=== PATIENT | female | born 2000 | race Two or more races ===

== ENCOUNTER 2020-03-11 13:55 | Outpatient (REF) | payer MEDICAID, SELFPAY ==
[2020-03-12 10:01] LABS: BV Int Neg Control Negative (Negative); BV Int Pos Control Positive (Positive)
[2020-03-12 15:42] LABS: C. trachomatis RNA TMA DETECTED (NOT DETECTED); N. gonorrhoeae RNA TMA DETECTED (NOT DETECTED)
[2020-03-17 06:02] LABS: HPV mRNA E6/E7 rflx Not Detected (Not Detected)
== END 2020-03-11 13:56 | disposition home or self-care (01) ==
LOC: HO.LAB 13:55
PROVIDERS: PCP Physician Assistant; Visit Provider Advanced Practice Midwife
DX: Z01.419 Encounter for gynecological examination (general) (routine) without abnormal findings (principal); B96.89 Other specified bacterial agents as the cause of diseases classified elsewhere; N76.0 Acute vaginitis; Z20.2 Contact with and (suspected) exposure to infections with a predominantly sexual mode of transmission
CPT/HCPCS: 36415; 87480; 87491; 87510; 87591; 87624; 87660; 88142

== ENCOUNTER 2020-03-13 08:28 | Outpatient (REF) | payer MEDICAID, SELFPAY ==
[2020-03-13 09:03] LABS: Hematocrit 37.1 % (37-47); Hemoglobin 12.1 g/dl (12.0-16.0); Mean Corpuscular HGB Conc 32.6 g/dl (31.0-35.0); Mean Corpuscular Hemoglobin 27.9 pg (27.0-33.0); Mean Corpuscular Volume 85.5 fL (80-98); Platelet Count 292 X10*3/uL (160-400); Red Blood Count 4.34 X10*6/uL (4.20-5.50); Red Cell Distribution Width 12.4 % (11.0-16.0); White Blood Count 7.4 X10*3/uL (4.8-10.8)
[2020-03-13 09:35] LABS: Alanine Aminotransferase 12 U/L (0-31); Albumin Level 4.3 g/dL (3.5-5.0); Alkaline Phosphatase 48 U/L (39-117); Anion Gap 13 (12-20); Aspartate Amino Transferase 14 U/L (5-31); Bilirubin Total 0.9 mg/dL (0.0-1.0); Blood Urea Nitrogen 13 mg/dL (9-16); Calcium 8.8 mg/dL (8.4-10.2); Carbon Dioxide 23 mmol/L (22-29); Chloride 107 mmol/L (96-108); Estimated Glomerular Filt Rate > 60; Glucose Fasting 95 mg/dL (60-99); Sodium 139 mmol/L (135-145); Total Protein 7.1 g/dL (6.5-8.0)
[2020-03-13 10:11] LABS: Estimated Average Glucose 105 mg/dL; Hemoglobin A1c % 5.3 %
[2020-03-15 08:04] LABS: HIV AB/AG Nonreactive (Nonreactive); HIV Num 1 0.07 S/CO (0.00-0.99); ~HepC Num1 0.12 S/CO (0.00-0.79); ~Hepatitis C Antibody Nonreactive (Nonreactive)
[2020-03-15 08:22] LABS: HBsAGNum1 0.13 S/CO (0.00-0.99); Hepatitis B Surface Antigen Negative (Negative)
[2020-03-15 14:29] LABS: Syphilis Screen Nonreactive (Nonreactive)
[2020-03-15 15:42] LABS: C. trachomatis RNA TMA DETECTED (NOT DETECTED); N. gonorrhoeae RNA TMA DETECTED (NOT DETECTED)
== END 2020-03-13 08:29 | disposition home or self-care (01) ==
LOC: HO.LAB 08:28
PROVIDERS: PCP Physician Assistant; Visit Provider Advanced Practice Midwife
DX: I10 Essential (primary) hypertension (principal); E66.09 Other obesity due to excess calories; Z68.32 Body mass index [BMI] 32.0-32.9, adult; Z13.1 Encounter for screening for diabetes mellitus; Z13.29 Encounter for screening for other suspected endocrine disorder; Z20.2 Contact with and (suspected) exposure to infections with a predominantly sexual mode of transmission
CPT/HCPCS: 36415; 80053; 83036; 84443; 85027; 86780; 86803; 87340; 87389; 87491; 87591

== ENCOUNTER → 2020-03-19 09:05 | Outpatient (BNVA) | payer MEDICAID, SELFPAY | PROVIDERS: PCP Physician Assistant; Visit Provider Advanced Practice Midwife | DX: A64 Unspecified sexually transmitted disease (principal); Z79.2 Long term (current) use of antibiotics | CPT/HCPCS: 96372; 99211; 99212; J0696 ==

== ENCOUNTER → 2020-05-07 14:59 | Outpatient (BNVA) | payer MEDICAID, SELFPAY | PROVIDERS: Visit Provider Advanced Practice Midwife | DX: Z30.09 Encounter for other general counseling and advice on contraception (principal); N76.0 Acute vaginitis; A74.9 Chlamydial infection, unspecified; A54.9 Gonococcal infection, unspecified; B96.89 Other specified bacterial agents as the cause of diseases classified elsewhere | CPT/HCPCS: 99212 ==

== ENCOUNTER 2020-05-17 18:52 | Emergency (ER) | payer OTHER, SELFPAY ==
[2020-05-17 19:56] VITALS: BP 141/80; PULSE 85; RESP 16; TEMP 37.2; O2SAT 100; BMI 33.4
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
== END 2020-05-17 22:19 | disposition home or self-care (01) ==
PROVIDERS: Emergency Provider Internal Medicine; PCP Physician Assistant
DX: Z04.1 Encounter for examination and observation following transport accident (principal); M79.10 Myalgia, unspecified site; G89.11 Acute pain due to trauma; M79.604 Pain in right leg
CPT/HCPCS: 99283; 99284

== ENCOUNTER 2020-05-28 15:01 | Outpatient (REF) | payer MEDICAID, SELFPAY ==
[2020-05-29 03:29] LABS: CT PCR NOT DETECTED (Not Detect.); NG PCR DETECTED (Not Detect.)
[2020-05-29 12:10] LABS: BV Int Neg Control Negative (Negative); BV Int Pos Control Positive (Positive)
== END 2020-05-28 15:02 | disposition home or self-care (01) ==
LOC: HO.LAB 15:01
PROVIDERS: Visit Provider Advanced Practice Midwife
DX: Z30.41 Encounter for surveillance of contraceptive pills (principal); Z20.2 Contact with and (suspected) exposure to infections with a predominantly sexual mode of transmission; B96.89 Other specified bacterial agents as the cause of diseases classified elsewhere; N76.0 Acute vaginitis; A54.9 Gonococcal infection, unspecified; A74.9 Chlamydial infection, unspecified
CPT/HCPCS: 87480; 87491; 87510; 87591; 87660; 99212

== ENCOUNTER → 2020-06-11 14:55 | Outpatient (BNVA) | payer MEDICAID, SELFPAY | PROVIDERS: PCP Physician Assistant; Visit Provider Advanced Practice Midwife | DX: A54.9 Gonococcal infection, unspecified (principal); A64 Unspecified sexually transmitted disease | CPT/HCPCS: 96372; 99211; J0696 ==

== ENCOUNTER 2020-07-09 14:15 | Outpatient (REF) | payer MEDICAID, SELFPAY ==
[2020-07-10 02:29] LABS: CT PCR NOT DETECTED (Not Detect.); NG PCR NOT DETECTED (Not Detect.)
[2020-07-10 11:52] LABS: BV Int Neg Control Negative (Negative); BV Int Pos Control Positive (Positive)
== END 2020-07-09 14:16 | disposition home or self-care (01) ==
LOC: HO.LAB 14:15
PROVIDERS: PCP Physician Assistant; Visit Provider Advanced Practice Midwife
DX: A54.9 Gonococcal infection, unspecified (principal); A74.9 Chlamydial infection, unspecified; B37.3 Candidiasis of vulva and vagina
CPT/HCPCS: 87480; 87491; 87510; 87591; 87660; 99212

== ENCOUNTER 2020-09-22 14:00 | Outpatient (RCR) | payer OTHER, MEDICAID, SELFPAY ==
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
== END 2020-09-22 16:49 | disposition home or self-care (01) ==
LOC: HO.PT 14:00
PROVIDERS: PCP Physician Assistant; Visit Provider Internal Medicine
DX: S16.1XXA Strain of muscle, fascia and tendon at neck level, initial encounter (principal)
CPT/HCPCS: 97110; 97112; 97140; 97150; 97162; 97164

== ENCOUNTER 2020-10-27 10:39 | Outpatient (REF) | payer MEDICAID, SELFPAY ==
[2020-10-27 15:40] LABS: CT PCR DETECTED (Not Detect.); NG PCR NOT DETECTED (Not Detect.)
[2020-10-28 10:10] LABS: BV Int Neg Control Negative (Negative); BV Int Pos Control Positive (Positive)
== END 2020-10-27 10:40 | disposition home or self-care (01) ==
LOC: HO.LAB 10:39
PROVIDERS: PCP Physician Assistant; Visit Provider Advanced Practice Midwife
DX: R30.0 Dysuria (principal); N73.9 Female pelvic inflammatory disease, unspecified; N89.8 Other specified noninflammatory disorders of vagina; N90.89 Other specified noninflammatory disorders of vulva and perineum; Z20.2 Contact with and (suspected) exposure to infections with a predominantly sexual mode of transmission
CPT/HCPCS: 81003; 87086; 87255; 87480; 87491; 87510; 87591; 87660; 96372; 99212; J0696

== ENCOUNTER 2020-11-17 08:36 | Outpatient (REF) | payer MEDICAID, SELFPAY ==
[2020-11-18 10:36] LABS: BV Int Neg Control Negative (Negative); BV Int Pos Control Positive (Positive)
== END 2020-11-17 08:37 | disposition home or self-care (01) ==
LOC: HO.LAB 08:36
PROVIDERS: PCP Physician Assistant; Visit Provider Advanced Practice Midwife
DX: N89.8 Other specified noninflammatory disorders of vagina (principal); Z20.2 Contact with and (suspected) exposure to infections with a predominantly sexual mode of transmission
CPT/HCPCS: 87480; 87510; 87660; 99212

== ENCOUNTER 2021-01-05 09:00 | Outpatient (RCR) | payer OTHER, MEDICAID, SELFPAY ==
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
== END 2021-01-10 18:08 | disposition home or self-care (01) ==
LOC: HO.PT 09:00
PROVIDERS: PCP Physician Assistant; Visit Provider Physician Assistant
DX: S16.1XXD Strain of muscle, fascia and tendon at neck level, subsequent encounter (principal)
CPT/HCPCS: 97110; 97112; 97140; 97161; 97530

== ENCOUNTER → 2021-01-25 14:11 | Outpatient (BNVA) | payer MEDICAID, SELFPAY | PROVIDERS: Visit Provider Advanced Practice Midwife ==

== ENCOUNTER 2021-02-15 18:08 | Emergency (ER) | payer OTHER, MEDICAID, SELFPAY ==
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
[2021-02-15 21:04] VITALS: BP 124/74; PULSE 86; RESP 16; TEMP 36.7; O2SAT 100; BMI 34.0
[2021-02-15 21:06] VITALS: BP 124/74; PULSE 86; RESP 16; TEMP 36.7; O2SAT 100; BMI 34.0
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
== END 2021-02-15 22:38 | disposition home or self-care (01) ==
PROVIDERS: Emergency Provider Emergency Medicine Emergency Medical Services; PCP Physician Assistant
DX: S80.01XA Contusion of right knee, initial encounter (principal); V43.52XA Car driver injured in collision with other type car in traffic accident, initial encounter; Y93.89 Activity, other specified; Y92.414 Local residential or business street as the place of occurrence of the external cause; Y99.9 Unspecified external cause status
CPT/HCPCS: 73562; 99283

== ENCOUNTER 2021-02-17 15:52 | Outpatient (REF) | payer OTHER, MEDICAID, SELFPAY ==
[2021-02-18 08:51] LABS: BV Int Neg Control Negative (Negative); BV Int Pos Control Positive (Positive)
[2021-02-18 11:07] LABS: CT PCR DETECTED (Not Detect.); NG PCR NOT DETECTED (Not Detect.)
== END 2021-02-17 15:53 | disposition home or self-care (01) ==
LOC: HO.LAB 15:52
PROVIDERS: Visit Provider Advanced Practice Midwife
DX: A59.9 Trichomoniasis, unspecified (principal); N89.8 Other specified noninflammatory disorders of vagina; Z20.2 Contact with and (suspected) exposure to infections with a predominantly sexual mode of transmission
CPT/HCPCS: 87480; 87491; 87510; 87591; 87660; 99212

== ENCOUNTER 2021-03-31 14:15 | Outpatient (REF) | payer MEDICAID, SELFPAY ==
[2021-04-01 12:25] LABS: BV Int Neg Control Negative (Negative); BV Int Pos Control Positive (Positive)
[2021-04-01 13:06] LABS: CT PCR DETECTED (Not Detect.); NG PCR NOT DETECTED (Not Detect.)
== END 2021-03-31 14:16 | disposition home or self-care (01) ==
LOC: HO.LAB 14:15
PROVIDERS: Visit Provider Advanced Practice Midwife
DX: Z12.4 Encounter for screening for malignant neoplasm of cervix (principal); Z20.2 Contact with and (suspected) exposure to infections with a predominantly sexual mode of transmission; A74.9 Chlamydial infection, unspecified
CPT/HCPCS: 87480; 87491; 87510; 87591; 87660

== ENCOUNTER 2021-04-02 21:43 | Emergency (ER) | payer MEDICAID, SELFPAY ==
[2021-04-02 21:48] VITALS: BP 125/79; PULSE 91; RESP 18; TEMP 36.7; O2SAT 97; BMI 33.0
[2021-04-02 22:15] LABS: Appearance Urine CLEAR; Color Urine YELLOW; Glucose Urine UA NEG (NEG); Leukocyte Esterase Urine TRACE (NEG); Nitrite Urine NEG (NEG); PH 6.5 (5.0-8.0); Specific Gravity - Urine >= 1.030 (1.005-1.025); UACC Culture Trigger YES; Urine Blood 3+ (NEG); Urine Ketones 40 MG/DL (NEG); Urine Protein 1+ MG/DL (NEG-TRACE)
[2021-04-02 22:31] LABS: UPreg QC Valid YES; Urine Pregnancy NEGATIVE (NEGATIVE)
[2021-04-02 22:48] LABS: UACC CULT YES
[2021-04-02 22:49] LABS: Bacteria Urine 1+ /LPF; Squamous Epithelial Cell Urine TRACE /LPF
[2021-04-02 22:52] LABS: Hyaline Casts Urine 0-2 /LPF
[2021-04-02 22:54] LABS: Mucus Urine TRACE /LPF
[2021-04-02] MEDS: ondansetron HCL 4 MG/2 ML VIAL IVPUSH (23:37)
[2021-04-02] MEDS: diphenhydrAMINE HCL 50 MG/ML VIAL 25 MG IVPUSH (23:37)
[2021-04-02] MEDS: Metoclopramide HCl 10 MG/2 ML VIAL IVPUSH (23:37)
[2021-04-02] MEDS: Ketorolac Tromethamine 30 MG/ML VIAL 15 MG IVPUSH (23:37)
[2021-04-02] MEDS: 0.9 % Sodium Chloride 1,000 ML 999 ML IV (23:40)
--- NOTE | 2021-04-02 23:53 | ED.HA ---
HPI - Headache General Chief Complaint: Headache Stated Complaint: rt side head pain Time Seen by Provider: 04/02/21 22:46 Source: patient Mode of arrival: ambulatory History of Present Illness HPI Narrative: [age] year female who presents with right-sided headache and associated photophobia as well as nausea and has history migraines. Otherwise, she denies any speech/visual disturbance or extremity numbness/tingling/weakness. Patient stated that she attempted to take Motrin or Tylenol but that it did not work and she vomited the pills. She states that her headaches seem to occur around her menstrual cycle. Related Data Home Medications Medication Instructions Recorded Confirmed desogestrel-e.estradiol 0.15 1 tab PO DAILY 04/02/21 04/02/21 mg-0.02 mg(21)/e.estrad 0.01 mg(5) tablet (Viorele (28)) Previous Rx's Medication Instructions Recorded ondansetron 4 mg disintegrating 4 mg PO Q6H PRN #10 tab 04/03/21 tablet Allergies Allergy/AdvReac Type Severity Reaction Status Date / Time No Known Allergies Allergy Verified 04/02/21 21:48 Review of Systems Review of Systems: Pertinent positives and negatives as stated in HPI 10 point review of systems is otherwise negative PMFSH Past Medical History Source: nursing notes reviewed Medical History Cervical cancer screening Surgical History Hx of tonsillectomy Family History Family History Father No problems noted. Mother Benign tumor Arthritis Social History Social History Housing: House Alcohol intake: current Alcohol intake frequency: holidays/special occasions only Patient Tobacco Use Status: Never used Tobacco Tobacco use type: Cigarette e-Cigarette/Vaping Use: Never Used Second Hand Smoke Exposure: No Use of substances other than those prescribed or required for medical reasons: No Advance Directives: No Advance Directives Information Provided: No Patient : No Current occupational status: employed Current occupation: [employer] Sexual orientation: Straight/Heterosexual Gender identity: Female Physical Exam Vital Signs: Vital Signs: Last Vital Signs Temp 98.1 F 04/02/21 21:48 Pulse 85 04/03/21 00:05 Resp 17 04/03/21 00:05 BP 110/60 04/03/21 00:05 Pulse Ox 99 04/03/21 00:05 BMI result Body Mass Index 33.0 VITAL SIGNS: Reviewed. GENERAL: Well developed, well nourished, in no acute distress. HEAD: Normocephalic/atraumatic EYES: PERRLA, EOMI intact without pain, no nystagmus EARS: Ext canals without abnormality OROPHARYNX: no oral lesions noted, posterior pharynx clear LUNGS: Normal breath sounds. No adventitious sounds or accessory muscle use. SpO2<97> CARDIOVASCULAR: Regular rate and rhythm without noted murmurs ABDOMEN: Soft, non-tender, non-distended with bowel sounds. SKIN: Inspection of the skin reveals no rashes NEUROLOGIC: Alert and oriented x 4. Strength and sensation to light touch were grossly intact x 4, otherwise nonfocal Course Course Course Narrative: 20-year-old female with history and clinical presentation consistent with what appears to be migraines with menstrual cycle being the trigger. Will attempt abortive therapy with fluids and migraine cocktail as well as treating patient's mild gastritis from her nausea and vomiting. She will then be discharged home in stable condition with instructions to follow-up with primary care provider in discuss further management outpatient. On re-evaluation patient is feeling better and is stable for discharge to home. MDM - Headache Lab Data Labs: Lab Results 04/02/21 04/02/21 Range/Units 21:57 21:57 Urine Color YELLOW Urine Appearance CLEAR Urine pH 6.5 (5.0-8.0) Ur Specific [place] >= 1.030 H (1.005-1.025) Urine Protein 1+ H (NEG-TRACE) MG/DL Urine Glucose (UA) NEG (NEG) MG/DL Urine Ketones 40 (NEG) MG/DL Urine Blood 3+ H (NEG) Urine Nitrite NEG (NEG) Ur Leukocyte Esterase TRACE H (NEG) Urine RBC 5-9 H (0) /HPF Urine WBC 5-9 H (0-4) /HPF Ur Squamous Epith Cells TRACE /LPF Urine Bacteria 1+ /LPF Hyaline Casts 0-2 /LPF Urine Mucus TRACE /LPF Urine Test NEGATIVE (NEGATIVE) Discharge Plan Discharge Clinical Impression: Headache Patient Disposition: Home, Self-Care Instructions: General Headache (ED) Additional Instructions: 1. Please increase fluid hydration, especially with water. 2. Tylenol 1000 mg, orally, every 6 hours as needed for headache control. Do not exceed 4000 mg within 24 hours. 3. Ibuprofen 400 mg, orally with milk or food, every 6 hours as needed for headache control. You may take this with Tylenol for increased symptom relief. 4. Recommend keeping a headache journal so that when you discuss with your primary care provider or with any specialist on referral they can review this with you and come up with a plan. 5. Please follow-up with primary care provider on Sunday. Return to the ER for worsening symptoms. Prescriptions: New ondansetron 4 mg tablet,disintegrating 4 mg PO Q6H PRN (Reason: nausea and vomiting) Qty: 10 0RF No Action desog-e.estradiol/e.estradiol [Viorele (28)] 0.15-0.02 mgx21 /0.01 mg x 5 tablet 1 tab PO DAILY 0RF Referrals: Jesus Mendenhall PA-C [Primary Care Provider] - 2 days
[2021-04-03 00:05] VITALS: BP 110/60; PULSE 85; RESP 17; O2SAT 99
[2021-04-03] MEDS: Magnesium Hydrox/Alum Hydrox 30 ML ORAL.SUSP PO (01:01)
[2021-04-03] MEDS: Lidocaine HCl Viscous 2 % 15 ML SOLUTION 10 ML MUCOUS MEM (01:01)
[2021-04-03] MEDS: Butalb/Acetamin/Caff 50/325/40 TABLET 1 TAB PO (01:01)
== END 2021-04-03 01:49 | disposition home or self-care (01) ==
PROVIDERS: Emergency Provider Student in an Organized Health Care Education/Training Program; PCP Physician Assistant
DX: R51.9 Headache, unspecified (principal)
CPT/HCPCS: 81001; 81025; 87086; 96361; 96374; 96375; 99284; 99285; J1200; J1885; J2405; J2765

== ENCOUNTER 2021-06-01 10:30 | Outpatient (REF) | payer MEDICAID, SELFPAY ==
[2021-06-01 11:46] LABS: Hematocrit 37.2 % (37.0-47.0); Hemoglobin 12.2 g/dl (12.0-16.0); Mean Corpuscular HGB Conc 32.8 g/dl (31.0-35.0); Mean Corpuscular Hemoglobin 27.1 pg (27.0-33.0); Mean Corpuscular Volume 82.7 fL (80.0-98.0); Mean Platelet Volume 10.1 fL (9.4-12.3); Platelet Count 307 X10*3/uL (160-400); Red Cell Distribution Width 12.6 % (11.0-16.0); White Blood Count 7.6 X10*3/uL (4.8-10.8)
[2021-06-01 11:52] LABS: Estimated Average Glucose 105 mg/dL; Hemoglobin A1c % 5.3 %
[2021-06-01 12:23] LABS: Alanine Aminotransferase 21 U/L (0-31); Albumin Level 3.6 g/dL (3.5-5.0); Alkaline Phosphatase 45 U/L (39-117); Anion Gap 10 (12-20); Aspartate Amino Transferase 19 U/L (5-31); Bilirubin Total 0.4 mg/dL (0.0-1.0); Blood Urea Nitrogen 10 mg/dL (9-16); Calcium 8.9 mg/dL (8.4-10.2); Carbon Dioxide 24 mmol/L (22-29); Chloride 106 mmol/L (96-108); Estimated Glomerular Filt Rate > 60; Glucose Fasting 89 mg/dL (60-99); Potassium 4.2 mmol/L (3.3-5.1); Sodium 136 mmol/L (135-145); Total Protein 6.7 g/dL (6.5-8.0)
[2021-06-01 12:28] LABS: Syphilis Screen Nonreactive (Nonreactive)
[2021-06-01 12:29] LABS: HBc Num1 0.17 S/CO (0.00-0.79); HIV AB/AG Nonreactive (Nonreactive); HIV Num 1 0.07 S/CO (0.00-0.99); Hepatitis B Core Antibody Nonreactive (Nonreactive)
[2021-06-01 12:31] LABS: TSH reflex Free T4 1.18 uIU/mL (0.32-4.0)
[2021-06-01 12:33] LABS: ~HepC Num1 0.17 S/CO (0.00-0.79); ~Hepatitis C Antibody Nonreactive (Nonreactive)
== END 2021-06-01 10:31 | disposition home or self-care (01) ==
LOC: HO.LAB 10:30
PROVIDERS: Absent Provider Physician Assistant; PCP Physician Assistant; Visit Provider Advanced Practice Midwife
DX: Z01.84 Encounter for antibody response examination (principal); Z13.29 Encounter for screening for other suspected endocrine disorder; Z11.4 Encounter for screening for human immunodeficiency virus [HIV]; Z20.2 Contact with and (suspected) exposure to infections with a predominantly sexual mode of transmission
CPT/HCPCS: 36415; 80053; 83036; 84443; 85027; 86704; 86780; 86803; 87389

== ENCOUNTER 2021-06-24 18:51 | Outpatient (REF) | payer OTHER, MEDICAID, SELFPAY ==
--- NOTE | ~2021-06-24 | MR_ITS ---
EXAMINATION: MR KNEE WITHOUT CONTRAST, LEFT CLINICAL INFORMATION: Left knee pain. COMPARISON: 02/15/2021 TECHNIQUE: MRI of the knee without contrast was performed using routine sequences on a high-field scanner. FINDINGS: MENISCI: Medial Meniscus: Intact. Lateral Meniscus: Intact. LIGAMENTS: Cruciate: Intact. Collateral: Intact. EXTENSOR MECHANISM: Intact. Normal appearance of the quadriceps and patellar tendons. Trace edema signal deep to the iliotibial band at the level of the lateral femoral epicondyle. ARTICULAR CARTILAGE/BONE: Patellofemoral Compartment: Normal. Articular cartilage is well-preserved. Normal trochlear morphology. TT-TG distance measures 1.1 cm. Medial Compartment: Normal. Lateral Compartment: Normal. JOINT FLUID AND BURSAE: Trace fluid in the joint is within normal limits. No Bess's cyst. No loose bodies. MR/MR knee LT wo con IMPRESSION: No acute abnormality of the left knee on this MRI. Trace edema signal deep to the IT band at the level of the lateral femoral epicondyle can be seen in the setting of iliotibial band friction syndrome, though is relatively mild in this instance and more likely to be subclinical.
== END 2021-06-24 18:52 | disposition home or self-care (01) ==
LOC: HO.MRI 18:51
PROVIDERS: Visit Provider Nurse Practitioner Family
DX: M25.562 Pain in left knee (principal)
CPT/HCPCS: 73721

== ENCOUNTER 2021-07-10 17:47 | Emergency (ER) | payer OTHER, MEDICAID, SELFPAY ==
--- NOTE | ~2021-07-10 | XR_ITS ---
EXAMINATION: XR CHEST CLINICAL INFORMATION: Cough. COMPARISON: None. TECHNIQUE: 2 views of the chest were obtained. FINDINGS: Normal appearance of the cardiomediastinal silhouette. No focal airspace opacities, pleural effusions, or pneumothorax. No acute osseous abnormalities. The upper abdomen is within normal limits. XR/XR chest 2V IMPRESSION: No acute cardiopulmonary findings.
[2021-07-10 18:11] VITALS: BP 125/77; PULSE 158; RESP 18; TEMP 37.8; O2SAT 98; BMI 34.0
--- NOTE | 2021-07-10 18:14 | ECG_ITS ---
Test Reason : TACHY Blood Pressure : / mmHG Vent. Rate : 142 BPM Atrial Rate : 142 BPM P-R Int : 112 ms QRS Dur : 074 ms QT Int : 358 ms P-R-T Axes : 000 049 027 degrees QTc Int : 550 ms Sinus tachycardia Otherwise normal ECG No previous ECGs available Referred By: Generic ED Physician Electronically Signed By:Paddy Adams
[2021-07-10] MEDS: Acetaminophen 325 MG TABLET 650 MG PO (18:18)
[2021-07-10 18:35] LABS: MANUAL DIFF FLAG NO
[2021-07-10 18:37] LABS: Basophils Percent Auto 0.3 % (0-2); Eosinophils Percent Auto 0.3 % (0-4); Hematocrit 37.3 % (37.0-47.0); Hemoglobin 12.5 g/dl (12.0-16.0); Imm Gran Abs Auto 0.02 X10*3/uL (0.00-0.03); Imm Gran Pct Auto 0.2 % (0.0-0.4); Lymphocytes Absolute Auto 0.6 X10*3/uL (1.2-4.9); Lymphocytes Percent Auto 6.7 % (20-40); Mean Corpuscular HGB Conc 33.5 g/dl (31.0-35.0); Mean Corpuscular Hemoglobin 27.7 pg (27.0-33.0); Mean Corpuscular Volume 82.7 fL (80.0-98.0); Mean Platelet Volume 9.7 fL (9.4-12.3); Monocytes Percent Auto 10.1 % (2-11); Neutrophils Absolute Auto 7.7 x10*3/uL (2.0-8.3); Neutrophils Percent Auto 82.4 % (45-73); Platelet Count 252 X10*3/uL (160-400); Red Blood Count 4.51 X10*6/uL (4.20-5.50); Red Cell Distribution Width 12.8 % (11.0-16.0); White Blood Count 9.4 X10*3/uL (4.8-10.8)
[2021-07-10 18:52] LABS: Alanine Aminotransferase 27 U/L (0-31); Albumin Level 3.6 g/dL (3.5-5.0); Alkaline Phosphatase 47 U/L (39-117); Anion Gap 12 (12-20); Aspartate Amino Transferase 22 U/L (5-31); Bilirubin Total 0.4 mg/dL (0.0-1.0); Blood Urea Nitrogen 5 mg/dL (9-16); Calcium 8.7 mg/dL (8.4-10.2); Carbon Dioxide 21 mmol/L (22-29); Chloride 106 mmol/L (96-108); Creatinine Clr Calc Pharmacy 98.5; Estimated Glomerular Filt Rate > 60; Glucose Random 107 mg/dL (60-115); Sodium 135 mmol/L (135-145); Total Protein 6.7 g/dL (6.5-8.0)
[2021-07-10 18:58] LABS: Troponin-I High Sensitivity < 3.5 ng/L (<3.5-17.0)
[2021-07-10 19:01] VITALS: BP 124/79; PULSE 124; RESP 18; TEMP 37.2; O2SAT 97
[2021-07-10 19:13] LABS: Influenza A PCR POSITIVE (Negative); Influenza B PCR NEGATIVE (Negative); Resp Syncy Virus RNA Qual PCR NEGATIVE (Negative); SARS COV2 PCR INHOUSE NEGATIVE (Negative)
--- NOTE | 2021-07-10 20:01 | ED.GENADULT ---
HPI - General Adult General Chief complaint: General Medical Stated complaint: SOB Sore Throat Chest Discomfort Time Seen by Provider: 07/10/21 20:01 Source: patient Mode of arrival: ambulatory Limitations: no limitations History of Present Illness HPI narrative: 21 yo female presents to the ER with worsening sore throat and cough that started yesterday morning. She reports today she developed SOB and chest tightness. She has had chills and body aches. She took a home COVID test and was negative today. She is vaccinated for COVID x2. 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 She thinks he had the flu. She denies any difficulty breathing or chest pain. She reports discomfort in her chest when she coughs is bringing up some phlegm. She had a low-grade fever earlier today. She is unsure if she had the flu vaccination in the fall. MD complaint: Flu like symptoms Onset (ago): day(s) (1) Location: head, mouth, chest and back Radiation: non-radiation Severity: moderate Quality: aching Pain Consistency: constant Relieving factors: none Exacerbating factors: none Associated symptoms: cough, fever/chills, headaches, loss of appetite, malaise, shortness of breath and weakness Treatments prior to arrival: none Related Data Home Medications Medication Instructions Recorded Confirmed desogestrel-e.estradiol 0.15 1 tab PO DAILY 04/02/21 06/14/21 mg-0.02 mg(21)/e.estrad 0.01 mg(5) tablet (Viorele (28)) Previous Rx's Medication Instructions Recorded ondansetron 4 mg disintegrating 4 mg PO Q6H PRN #10 tab 04/03/21 tablet nabumetone 500 mg tablet 500 mg PO BID PRN #20 tab 04/13/21 amitriptyline 25 mg tablet 25 mg PO BEDTIME 90 Days #90 tab 05/25/21 oseltamivir 75 mg capsule (Tamiflu) 75 mg PO BID 5 Days #10 cap 07/10/21 Allergies Allergy/AdvReac Type Severity Reaction Status Date / Time No Known Allergies Allergy Verified 07/10/21 18:10 Review of Systems Review of Systems: Constitutional: No Fever, + Chills ENT/Mouth: + sore throat, No Rhinorrhea, No Swallowing Difficulty Cardiovascular: No Chest Pain, + SOB, No Orthopnea, No Edema Respiratory: + Cough, + Sputum, No Wheezing, No dyspnea Gastrointestinal: No Nausea, No Vomiting, No Diarrhea, No abdominal Pain Genitourinary: No Dysuria, No Urinary Frequency, No Hematuria Musculoskeletal: No joint pain, + Myalgias Skin: No Skin Lesions, No rash Neuro: + Weakness, No Numbness, No Dizziness, + Headache Psych: No Anxiety/Panic, No Depression Heme/Lymph: No Bruising, No Lymphadenopathy Endocrine: No Polyuria, No Polydipsia [facility] Past Medical History Medical History Cervical cancer screening Surgical History Hx of tonsillectomy Family History Family History Father No problems noted. Mother Benign tumor Arthritis Family/Other Substance use disorder Social History Social History Housing: House Alcohol intake: current Alcohol intake frequency: holidays/special occasions only Patient Tobacco Use Status: Never used Tobacco Tobacco use type: Cigarette e-Cigarette/Vaping Use: Never Used Second Hand Smoke Exposure: No Advance Directives: No Advance Directives Information Provided: No service: No Current occupational status: employed Current occupation: [employer] white - [employer] Sexual orientation: Straight/Heterosexual Gender identity: Female Cognitive needs: No Hearing needs: No Vision needs: Yes (Need eye referral has not seen an eye doctor for about 3 years) Physical Exam ED Vital Signs: Vital Signs - 24 hr 07/10/21 18:11 07/10/21 19:01 Temperature 100.1 F 99 F Pulse Rate 158 H 124 H Respiratory Rate 18 18 Blood Pressure 125/77 124/79 Pulse Oximetry 98 97 BMI result Body Mass Index 34.0 Appearance: Alert. Oriented X3. No acute distress. Eyes: Pupils equal, round and reactive to light. ENT: Pharynx with mild generalized erythema, moist mucous membranes, Uvula midline. Normal TMs bilaterally Neck: Normal inspection. Neck supple. CVS: Tachycardic, regular rhythm, heart rate 110. Pulses normal. Respiratory: No respiratory distress. Breath sounds normal. Abdomen: Soft and nontender. +BS x4 Skin: Skin warm and dry. Normal skin color. Normal skin turgor. No rashes. Extremities: No lower extremity edema. No calf tenderness. Neuro: Oriented X 3. Grossly normal, nonfocal Course Course Course Narrative: 21 yo female presents to the ER for evaluation of sore throat and cough that started yesterday. She also has some chest tightness, headache shortness of breath and body aches. 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 She is tachycardic on arrival, otherwise nontoxic with an unremarkable physical exam. Lab workup, chest x-ray, viral swab sick, EKG pending. Reevaluation(s) Reevaluation #1: Lab workup is unremarkable. Chest x-ray clear. She is found to be influenza A positive. SpO2 97-98%. She qualifies for Tamiflu treatment. Will give 1st dose now. Stable for discharge home with Tamiflu and supportive care. Return precautions were discussed. Medical Decision Making Lab Data Result diagrams: 07/10/21 18:23 07/10/21 18:23 Labs: Lab Results 07/10/21 07/10/21 07/10/21 Range/Units 18:23 18:23 18:23 WBC 9.4 (4.8-10.8) X10*3/uL RBC 4.51 (4.20-5.50) X10*6/uL Hgb 12.5 (12.0-16.0) g/dl Hct 37.3 (37.0-47.0) % MCV 82.7 (80.0-98.0) fL MCH 27.7 (27.0-33.0) pg MCHC 33.5 (31.0-35.0) g/dl RDW 12.8 (11.0-16.0) % Plt Count 252 (160-400) X10*3/uL MPV 9.7 (9.4-12.3) fL Immature Gran % (Auto) 0.2 (0.0-0.4) % Neut % (Auto) 82.4 H (45-73) % Lymph % (Auto) 6.7 L (20-40) % [place] % (Auto) 10.1 (2-11) % Eos % (Auto) 0.3 (0-4) % Baso % (Auto) 0.3 (0-2) % Lymph # (Auto) 0.6 L (1.2-4.9) X10*3/uL [place] # (Auto) 1.0 (0.1-1.2) X10*3/uL Eos # (Auto) 0.0 (0.0-0.4) X10*3/uL Baso # (Auto) 0.0 (0.0-0.2) X10*3/uL Abs Immat Gran (auto) 0.02 (0.00-0.03) X10*3/uL Absolute Neuts (auto) 7.7 (2.0-8.3) x10*3/uL Absolute Nucleated RBC 0.000 (0.0-0.012) X10*3/uL Nucleated RBC % (auto) 0.0 (0.0-0.2) /100WBC Sodium 135 (135-145) mmol/L Potassium 4.0 (3.3-5.1) mmol/L Chloride 106 (96-108) mmol/L Carbon Dioxide 21 L (22-29) mmol/L Anion Gap 12 (12-20) BUN 5 L (9-16) mg/dL Creatinine 0.86 (0.5-1.4) mg/dL Estim Creat Clear Calc 98.5 Estimated GFR > 60 Random Glucose 107 (60-115) mg/dL Calcium 8.7 (8.4-10.2) mg/dL Total Bilirubin 0.4 (0.0-1.0) mg/dL AST 22 (5-31) U/L ALT 27 (0-31) U/L Alkaline Phosphatase 47 (39-117) U/L Troponin I High Sens (<3.5-17.0) ng/L Total Protein 6.7 (6.5-8.0) g/dL Albumin 3.6 (3.5-5.0) g/dL Influenza Type A (PCR) POSITIVE A (Negative) Influenza Type B (PCR) NEGATIVE (Negative) RSV RNA Qual (PCR) NEGATIVE (Negative) SARS-CoV-2 RNA (RT-PCR) NEGATIVE (Negative) 07/10/21 Range/Units 18:23 WBC (4.8-10.8) X10*3/uL RBC (4.20-5.50) X10*6/uL Hgb (12.0-16.0) g/dl Hct (37.0-47.0) % MCV (80.0-98.0) fL MCH (27.0-33.0) pg MCHC (31.0-35.0) g/dl RDW (11.0-16.0) % Plt Count (160-400) X10*3/uL MPV (9.4-12.3) fL Immature Gran % (Auto) (0.0-0.4) % Neut % (Auto) (45-73) % Lymph % (Auto) (20-40) % [place] % (Auto) (2-11) % Eos % (Auto) (0-4) % Baso % (Auto) (0-2) % Lymph # (Auto) (1.2-4.9) X10*3/uL [place] # (Auto) (0.1-1.2) X10*3/uL Eos # (Auto) (0.0-0.4) X10*3/uL Baso # (Auto) (0.0-0.2) X10*3/uL Abs Immat Gran (auto) (0.00-0.03) X10*3/uL Absolute Neuts (auto) (2.0-8.3) x10*3/uL Absolute Nucleated RBC (0.0-0.012) X10*3/uL Nucleated RBC % (auto) (0.0-0.2) /100WBC Sodium (135-145) mmol/L Potassium (3.3-5.1) mmol/L Chloride (96-108) mmol/L Carbon Dioxide (22-29) mmol/L Anion Gap (12-20) BUN (9-16) mg/dL Creatinine (0.5-1.4) mg/dL Estim Creat Clear Calc Estimated GFR Random Glucose (60-115) mg/dL Calcium (8.4-10.2) mg/dL Total Bilirubin (0.0-1.0) mg/dL AST (5-31) U/L ALT (0-31) U/L Alkaline Phosphatase (39-117) U/L Troponin I High Sens < 3.5 (<3.5-17.0) ng/L Total Protein (6.5-8.0) g/dL Albumin (3.5-5.0) g/dL Influenza Type A (PCR) (Negative) Influenza Type B (PCR) (Negative) RSV RNA Qual (PCR) (Negative) SARS-CoV-2 RNA (RT-PCR) (Negative) ECG Data Attestation: I personally reviewed and interpreted this ECG as follows: Prior ECG tracings: not available for review Interpretation: Sinus tachycardia, heart rate 142 beats per minute, normal ID interval, prolonged QTc, no ST segment elevations or depressions Critical Care Time Critical Care Time Critical Care Time: No Discharge Plan Discharge Clinical Impression: Influenza A Patient Disposition: Home, Self-Care Instructions: Influenza (DC) Additional Instructions: You were found to be Influenza POSITIVE today. Your chest x-ray and oxygen levels were normal. Rest. Drink plenty of fluids. Do not go out in public while you are not feeling well. Take the prescribed anti-viral medication to help shorten the duration of your symptoms. Take over the counter cold/flu medications as needed for your symptoms. Take Tylenol and/or Motrin as needed for fevers and body aches. Follow up with your doctor this week. If you shortness of breath worsens, if you develop difficulty breathing or any other concerning symptom come back to the ER for further evaluation. Prescriptions: New oseltamivir [Tamiflu] 75 mg capsule 75 mg PO BID 5 Days Qty: 10 0RF No Action desog-e.estradiol/e.estradiol [Viorele (28)] 0.15-0.02 mgx21 /0.01 mg x 5 tablet 1 tab PO DAILY 0RF ondansetron 4 mg tablet,disintegrating 4 mg PO Q6H PRN (Reason: nausea and vomiting) Qty: 10 0RF amitriptyline 25 mg tablet 25 mg PO BEDTIME 90 Days Qty: 90 1RF nabumetone 500 mg tablet 500 mg PO BID PRN (Reason: pain) Qty: 20 0RF Referrals: Jesus Mendenhall PA-C [Primary Care Provider] - (flu A) Stand Alone Forms: Work/School Release
[2021-07-10] MEDS: Oseltamivir Phosphate 75 MG CAPSULE PO (20:51)
[2021-07-10] MEDS: Ketorolac Tromethamine 30 MG/ML VIAL IM (21:07)
== END 2021-07-10 21:13 | disposition home or self-care (01) ==
LOC: HO.ED 20:25
PROVIDERS: Emergency Provider Emergency Medicine Emergency Medical Services; PCP Physician Assistant
DX: J10.1 Influenza due to other identified influenza virus with other respiratory manifestations (principal); R06.02 Shortness of breath; R07.89 Other chest pain; R51.9 Headache, unspecified; M54.50 Low back pain, unspecified; Z20.822 Contact with and (suspected) exposure to COVID-19; Z79.899 Other long term (current) drug therapy
CPT/HCPCS: 0241U; 36415; 71046; 80053; 84484; 85025; 93005; 96372; 99283; 99284; J1885

== ENCOUNTER 2021-07-25 07:24 | Outpatient (REF) | payer MEDICAID, OTHER, SELFPAY ==
--- NOTE | ~2021-07-25 | XR_ITS ---
EXAMINATION: KNEE X-RAY CLINICAL INFORMATION: Pain COMPARISON: Previous x-ray February 2021 TECHNIQUE: 3 views of each knee FINDINGS: Bone alignment is normal. No fracture or dislocation is seen. The joint spaces are normal. There is no joint effusion. XR/XR knee LT 2V IMPRESSION: Unremarkable exam.
--- NOTE | ~2021-07-25 | XR_ITS ---
EXAMINATION: KNEE X-RAY CLINICAL INFORMATION: Pain COMPARISON: Previous x-ray February 2021 TECHNIQUE: 3 views of each knee FINDINGS: Bone alignment is normal. No fracture or dislocation is seen. The joint spaces are normal. There is no joint effusion. XR/XR knee RT 2V IMPRESSION: Unremarkable exam.
--- NOTE | ~2021-07-25 | XR_ITS ---
EXAMINATION: KNEE X-RAY CLINICAL INFORMATION: Pain COMPARISON: Previous x-ray February 2021 TECHNIQUE: 3 views of each knee FINDINGS: Bone alignment is normal. No fracture or dislocation is seen. The joint spaces are normal. There is no joint effusion. XR/XR knee standing BI IMPRESSION: Unremarkable exam.
== END 2021-07-25 07:25 | disposition home or self-care (01) ==
LOC: HO.HOSX 07:24
PROVIDERS: Visit Provider Physician Assistant
DX: M25.561 Pain in right knee (principal); M25.562 Pain in left knee
CPT/HCPCS: 73560; 73565

== ENCOUNTER 2021-09-25 18:34 | Emergency (ER) | payer MEDICAID, SELFPAY ==
--- NOTE | ~2021-09-25 | XR_ITS ---
EXAMINATION: XR CHEST CLINICAL INFORMATION: Shortness of breath. COMPARISON: Chest x-ray 07/10/2021 TECHNIQUE: Frontal view of the chest was obtained. FINDINGS: No significant abnormality is noted involving the heart, lungs, mediastinum, bony thorax or soft tissues. XR/XR chest 1V IMPRESSION: Unremarkable examination.
[2021-09-25 18:48] VITALS: BP 125/82; PULSE 110; TEMP 37.6; O2SAT 97; BMI 34.0
--- NOTE | 2021-09-25 18:54 | ECG_ITS ---
Test Reason : PALPITATIONS Blood Pressure : / mmHG Vent. Rate : 113 BPM Atrial Rate : 113 BPM P-R Int : 132 ms QRS Dur : 072 ms QT Int : 324 ms P-R-T Axes : 057 058 010 degrees QTc Int : 444 ms Sinus tachycardia Otherwise normal ECG When compared with ECG of 10-JUL-2021 18:13, Heart rate has decreased Referred By: Generic ED Physician Electronically Signed By:WISAM WINSTON
[2021-09-25 19:12] LABS: Basophils Percent Auto 0.5 % (0-2); Eosinophils Absolute Auto 0.2 X10*3/uL (0.0-0.4); Eosinophils Percent Auto 2.7 % (0-4); Hematocrit 38.2 % (37.0-47.0); Hemoglobin 12.5 g/dl (12.0-16.0); Imm Gran Abs Auto 0.02 X10*3/uL (0.00-0.03); Imm Gran Pct Auto 0.2 % (0.0-0.4); Lymphocytes Absolute Auto 2.4 X10*3/uL (1.2-4.9); Lymphocytes Percent Auto 27.9 % (20-40); MANUAL DIFF FLAG NO; Mean Corpuscular HGB Conc 32.7 g/dl (31.0-35.0); Mean Corpuscular Hemoglobin 27.2 pg (27.0-33.0); Mean Platelet Volume 9.7 fL (9.4-12.3); Monocytes Absolute Auto 0.7 X10*3/uL (0.1-1.2); Monocytes Percent Auto 7.7 % (2-11); Neutrophils Absolute Auto 5.3 x10*3/uL (2.0-8.3); Platelet Count 328 X10*3/uL (160-400); Red Cell Distribution Width 12.7 % (11.0-16.0); White Blood Count 8.7 X10*3/uL (4.8-10.8)
[2021-09-25 19:26] LABS: Anion Gap 13 (12-20); Blood Urea Nitrogen 5 mg/dL (9-16); Calcium 8.7 mg/dL (8.4-10.2); Carbon Dioxide 23 mmol/L (22-29); Chloride 108 mmol/L (96-108); Creatinine Clr Calc Pharmacy 114.4; Estimated Glomerular Filt Rate > 60; Glucose Random 104 mg/dL (60-115); Potassium 3.9 mmol/L (3.3-5.1); Sodium 140 mmol/L (135-145)
[2021-09-25 19:33] LABS: Troponin-I High Sensitivity < 3.5 ng/L (<3.5-17.0)
[2021-09-25 22:03] LABS: B Type Natriuretic Peptide < 10 pg/mL (<100)
[2021-09-25 23:20] LABS: TSH reflex Free T4 1.05 uIU/mL (0.32-4.0)
--- NOTE | 2021-09-26 02:03 | ED_ITS ---
HPI - Arrhythmia/Palpitations General Chief Complaint: Arrhythmia/Palpitations Stated Complaint: dizziness/high heart rate Time Seen by Provider: 09/25/21 21:43 Source: patient Mode of arrival: ambulatory Limitations: no limitations History of Present Illness HPI narrative: Patient comes to the emergency room complaining of palpitations. Patient states that when she was at home, her Apple watch alerted her that her heart rate was in the 150s. Patient states that she did feel palpitations. Initially when she came in to triage, patient states that she had dizziness. When I asked the patient what dizziness means to her, patient stated that it was a weird sensation, patient denied near-syncope, no room spinning, no lightheadedness. At this time, patient is asymptomatic. Patient denies chest pain or shortness of breath. Related Data Home Medications Medication Instructions Recorded Confirmed desogestrel-e.estradiol 0.15 1 tab PO DAILY 04/02/21 06/14/21 mg-0.02 mg(21)/e.estrad 0.01 mg(5) tablet (Viorele (28)) Previous Rx's Medication Instructions Recorded ondansetron 4 mg disintegrating 4 mg PO Q6H PRN nausea and 04/03/21 tablet vomiting #10 tabs nabumetone 500 mg tablet 500 mg PO BID PRN pain #20 tabs 04/13/21 amitriptyline 25 mg tablet 25 mg PO BEDTIME 90 days #90 tabs 05/25/21 oseltamivir 75 mg capsule (Tamiflu) 75 mg PO BID 5 days #10 caps 07/10/21 Allergies Allergy/AdvReac Type Severity Reaction Status Date / Time No Known Allergies Allergy Verified 09/25/21 18:48 Review of Systems Review of Systems: Constitutional : No Weight loss, No Fever, No Chills, No Night Sweats, No Fatigue, No Malaise ENT/Mouth : No Hearing loss, No Ear Pain, No Nasal Congestion, No Sinus Pain, No Hoarseness, No sore throat, No Rhinorrhea, No Swallowing Difficulty Eyes: No Eye Pain, No Swelling, No Redness, No Foreign Body, No Discharge, No Vision Changes Cardiovascular : No Chest Pain, No SOB, No Dyspnea on Exertion, No Orthopnea, No Edema, complaining of Palpitations Respiratory : No Cough, No Sputum, No Wheezing, No Smoke Exposure, No Dyspnea Gastrointestinal : No Nausea, No Vomiting, No Diarrhea, No Constipation, No abdominal Pain, No Hematochezia, No Melena Genitourinary : no irregular bleeding, No Dysuria, No Urinary Frequency, No Hematuria, No Urinary Incontinence, No Urgency, No Flank Pain, No Urinary Flow Changes, No Hesitancy Musculoskeletal : No joint pain, No Myalgias, No Joint Swelling Skin : No Skin Lesions, No rash Neuro : No Weakness, No Numbness, No Paresthesias, No Loss of Consciousness, No Dizziness, No Headache Psych : No Anxiety/Panic, No Depression, No SI/HI/AH/VH, No Social Issues, Heme/Lymph: No Bruising, No Bleeding,No Lymphadenopathy Endocrine : No Polyuria, No Polydipsia, No Temperature Intolerance [facility] Past Medical History Medical History Cervical cancer screening Surgical History Hx of tonsillectomy Family History Family History Father No problems noted. 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 Oriented X3. No acute distress. Eyes: Pupils equal, round and reactive to light. ENT: Pharynx normal. Neck: Normal inspection. Neck supple. No lymph nodes noted. No crepitus CVS: Normal heart rate and rhythm. Pulses normal. Normal S1 and S2 Respiratory: No respiratory distress. Breath sounds normal. No Wheezing. No rales Abdomen: Soft and nontender. No rigidity. No distention. Skin: Skin warm and dry. Normal skin color. Normal skin turgor. Extremities: No lower extremity edema. No Lacerations. No Rash Neuro: Oriented X 3. No motor deficit. No sensory deficit. Moving all extremities. No slurred speech. CN 2 through 12 grossly intact Psych: calm, cooperative, normal affect Course Course Course Narrative: Patient's physical exam is normal, heart rate in the 90s. I discussed the labs with the patient, troponin negative, TSH normal, EKG showed sinus tachycardia, at this moment patient's heart rate is in the 90s. No fever. Normal blood pressure Patient's DVT and PE wells criteria score is 0 I discussed with the patient that if she continues having symptoms, she may need a Holter monitor evaluation MDM - Arrhythmia/Palpitations Lab Data Result diagrams: 09/25/21 19:02 09/25/21 19:02 Labs: Lab Results 09/25/21 09/25/21 09/25/21 Range/Units 19:02 19:02 19:03 WBC 8.7 (4.8-10.8) X10*3/uL RBC 4.60 (4.20-5.50) X10*6/uL Hgb 12.5 (12.0-16.0) g/dl Hct 38.2 (37.0-47.0) % MCV 83.0 (80.0-98.0) fL MCH 27.2 (27.0-33.0) pg MCHC 32.7 (31.0-35.0) g/dl RDW 12.7 (11.0-16.0) % Plt Count 328 D (160-400) X10*3/uL MPV 9.7 (9.4-12.3) fL Immature Gran % (Auto) 0.2 (0.0-0.4) % Neut % (Auto) 61.0 (45-73) % Lymph % (Auto) 27.9 (20-40) % [place] % (Auto) 7.7 (2-11) % Eos % (Auto) 2.7 (0-4) % Baso % (Auto) 0.5 (0-2) % Lymph # (Auto) 2.4 (1.2-4.9) X10*3/uL [place] # (Auto) 0.7 (0.1-1.2) X10*3/uL Eos # (Auto) 0.2 (0.0-0.4) X10*3/uL Baso # (Auto) 0.0 (0.0-0.2) X10*3/uL Abs Immat Gran (auto) 0.02 (0.00-0.03) X10*3/uL Absolute Neuts (auto) 5.3 (2.0-8.3) x10*3/uL Absolute Nucleated RBC 0.000 (0.0-0.012) X10*3/uL Nucleated RBC % (auto) 0.0 (0.0-0.2) /100WBC Sodium 140 (135-145) mmol/L Potassium 3.9 (3.3-5.1) mmol/L Chloride 108 (96-108) mmol/L Carbon Dioxide 23 (22-29) mmol/L Anion Gap 13 (12-20) BUN 5 L (9-16) mg/dL Creatinine 0.74 (0.5-1.4) mg/dL Estim Creat Clear Calc 114.4 Estimated GFR > 60 Random Glucose 104 (60-115) mg/dL Calcium 8.7 (8.4-10.2) mg/dL Troponin I High Sens < 3.5 (<3.5-17.0) ng/L B-Natriuretic Peptide < 10 (<100) pg/mL TSH 1.05 (0.32-4.0) uIU/mL Discharge Plan Discharge Clinical Impression: Palpitations Patient Disposition: Home, Self-Care Instructions: Heart Palpitations (ED) Additional Instructions: Please follow-up with your primary care physician tomorrow. If you have any worsening or new symptoms, please return to the emergency room or call 911 Prescriptions: No Action desog-e.estradiol/e.estradiol [Viorele (28)] 0.15-0.02 mgx21 /0.01 mg x 5 tablet 1 tab PO DAILY ondansetron 4 mg tablet,disintegrating 4 mg PO Q6H PRN (Reason: nausea and vomiting) Qty: 10 0RF oseltamivir [Tamiflu] 75 mg capsule 75 mg PO BID 5 Days Qty: 10 0RF amitriptyline 25 mg tablet 25 mg PO BEDTIME 90 Days Qty: 90 1RF nabumetone 500 mg tablet 500 mg PO BID PRN (Reason: pain) Qty: 20 0RF
--- NOTE | 2021-09-26 02:05 | PC.NURSE ---
pt a&o,no sob or chest pain. Provider into assess pt. Repeat vitals taken.
[2021-09-26 02:07] VITALS: BP 137/83; PULSE 96; RESP 16; O2SAT 100
== END 2021-09-26 02:11 | disposition home or self-care (01) ==
PROVIDERS: Emergency Provider Emergency Medicine; PCP Physician Assistant
DX: R00.2 Palpitations (principal); R00.0 Tachycardia, unspecified; E66.9 Obesity, unspecified; Z68.34 Body mass index [BMI] 34.0-34.9, adult
CPT/HCPCS: 36415; 71045; 80048; 83880; 84443; 84484; 85025; 93005; 99283; 99284

== ENCOUNTER 2021-11-03 16:00 | Outpatient (RCR) | payer OTHER, MEDICAID, SELFPAY ==
--- NOTE | 2021-09-16 11:48 | MHC.PT.EP ---
[facility] [place] Office [place] Office [place] Office [address] [phone] F: [phone] F: [phone] F: [phone] F: [phone] Physical Therapy Plan of Care Date of Evaluation: Date of Surgery: Diagnosis: LESLIE KNEE PAIN, LEFT > RIGHT (KP) Assessment: Freddy is a pleasant 21 yo female who arrives for PT to address ongoing knee pain. Upon exam she demonstrates mild impairments of decreased ROM and strength with some patellar tracking issues. Overall, she appears to have deficits related more to poor stability and eccentric control. Functional limitations include decreased ability to perform walking, running and static standing. 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 Frequency and Duration: The patient will be seen 2 x week for 4 weels Short Term Goals: Initiate HEP and promote self management of symptoms Custodial Goals: TO demonstrates SLS leslie 30 second hold to ambulate ad kari on level and uneven surfaces to return to light running with pain no greater than 2/10 independent HEP Treatment Plan: Modalities to reduce pain, spasms and effusion. Manual therapy to restore motion and function. Therapeutic exercise to improve strength and flexibility. Neuromuscular re-education for posture and balance. Therapeutic activities to return to functional activities of daily living. Electronically signed by: KALI WARREN PT, DPT Please sign and return to therapist. Thank you for your referral.
--- NOTE | 2021-11-16 12:07 | MHC.PT.DC ---
[facility] [place] Office [place] Office [place] Office [address] [facility] [phone] F: [phone] F: [phone] F: [phone] F: [phone] Physical Therapy Discharge Report Diagnosis: LESLIE KNEE PAIN, LEFT > RIGHT (KP) Date of Surgery: Date of Evaluation: 09/15/21 Date of Discharge: 11/06/21 Treatments to Date: 13 Cancellations to Date: 0 No Shows to Date: 0 Discharge Status: Achieved Goals Improved Function Independent with HEP Discharge Summary: Pt returned to lt jogging independently w/o px for short perios. Pt strength 5/5 B Knee flex/ext. Pt met all goals and has comprehensive home program she can continue with independently. Electronically signed by: Treva Lora PT, DPT Please sign and return to therapist. Thank you for your referral.
== END 2021-11-16 12:07 | disposition home or self-care (01) ==
LOC: HO.PT 16:00
PROVIDERS: Visit Provider Physician Assistant
DX: M22.2X2 Patellofemoral disorders, left knee (principal); M22.2X1 Patellofemoral disorders, right knee; M76.31 Iliotibial band syndrome, right leg; M76.32 Iliotibial band syndrome, left leg
CPT/HCPCS: 97110; 97112; 97161; 97530

== ENCOUNTER 2022-05-02 13:21 | Outpatient (REF) | payer MEDICAID, SELFPAY ==
[2022-05-03 09:47] LABS: CT PCR DETECTED (Not Detect.); NG PCR NOT DETECTED (Not Detect.)
[2022-05-03 12:18] LABS: BV Int Neg Control Negative (Negative); BV Int Pos Control Positive (Positive)
== END 2022-05-02 13:22 | disposition home or self-care (01) ==
LOC: HO.LNP 13:21
PROVIDERS: PCP Physician Assistant; Visit Provider Advanced Practice Midwife
DX: Z01.419 Encounter for gynecological examination (general) (routine) without abnormal findings (principal); E66.9 Obesity, unspecified; G43.009 Migraine without aura, not intractable, without status migrainosus; Z68.36 Body mass index [BMI] 36.0-36.9, adult; Z20.2 Contact with and (suspected) exposure to infections with a predominantly sexual mode of transmission; Z79.899 Other long term (current) drug therapy
CPT/HCPCS: 0353U; 87480; 87510; 87660

== ENCOUNTER → 2022-07-14 14:42 | Outpatient (BNVA) | payer MEDICAID, SELFPAY | PROVIDERS: PCP Physician Assistant; Visit Provider Nurse Practitioner Family | DX: G43.009 Migraine without aura, not intractable, without status migrainosus (principal); G47.9 Sleep disorder, unspecified; G47.19 Other hypersomnia; R06.83 Snoring | CPT/HCPCS: 99202 ==

== ENCOUNTER 2022-09-06 13:49 | Outpatient (AMB) | payer MEDICAID, SELFPAY ==
[2022-09-06 14:14] VITALS: BP 116/68; BMI 36.5
--- NOTE | 2022-09-06 14:14 | A.OFFVIS_ITS ---
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 Accompanied by: Self / Same As Patient Allergies No Known Allergies Allergy (Verified 09/06/22 14:16) Medication List - Last Reconciled 09/06/22 by Stephanie Piedra CNM amitriptyline 25 mg PO BEDTIME 90 days betamethasone dipropionate 0.05% appl topical BID PRN desog-e.estradiol/e.estradiol 0.15-0.02 mgx21 /0.01 mg x 5 (Viorele (28)) 1 tab PO DAILY guselkumab (Tremfya) 100 mg subcut Q8W ibuprofen 600 mg PO Q8H PRN sumatriptan succinate 50 - 100 mg orally at onset of headache, may repeat in 2 hrs PRN; max 2 tabs per day or 4 tabs/week (may take with Ibuprofen) 30 days HPI 3 month joseph HPI Details Patient is here for test of cure for the chlamydia. She did not really notice an abnormal discharge beforehand so she does not notice much difference she and her partner both got treated and they did abstain for a while from unprotected sex. She also use the gel though she is not sure she used it right and she did not have an abnormal smell but she used it just because of the chlamydia as well. She sometimes uses this honey bee feminine wash that she bought but she is not sure if it works but then again she does not have her problem to start with so she is not noticing a difference either way. She is on the control pills and she did review the issue of her migraines with her neurologist and her neurologist said was fine to stay on the pills. She does not have a difference with headaches 1 where another with the pills and she does have a medication that she can take when she feels a migraine about to start or starting. She wants to stay on the control pills . She is working out with a field sales trainer 5 or 6 days a week but she has not lost any weight and she has a meal plan from her field sales trainer that she is not fond of because it involves cottage cheese which she she does not like, and vegetables. [facility] Medical History (Reviewed 07/14/22 @ 15:05 by Christina Ibrahim [facility]) Cervical cancer screening Surgical History (Reviewed 09/06/22 @ 14:18 by Tessa Fair [facility]) Hx of tonsillectomy Family History Father No problems noted. 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 - [employer] Sexual orientation: Straight/Heterosexual Gender identity: Female Cognitive needs: No Hearing needs: No Vision needs: Yes (Need eye referral has not seen an eye doctor for about 3 years) Female Reproductive History Menstrual Age of Menarche: 10 Physical Exam Vital Signs: Last Vital Signs BP 116/68 09/06/22 14:14 BMI result Body Mass Index 36.5 External Female Exam: normal external appearance and normal appearance of the urethra Speculum Exam - Vagina: normal appearance of the vagina and normal vaginal discharge Speculum Exam - Cervix: normal appearance of the cervix and Cervical os closed Assessment & Plan Assessment & Plan (1) Counseling for control, oral contraceptives: Code(s): Z30.09 - Encounter for other general counseling and advice on contraception (2) Obesity (BMI 35.0-39.9 without comorbidity): Code(s): E66.9 - Obesity, unspecified (3) Chlamydia infection: Comment: recurrent pos, noted pos 02/17/21, treated. 05/04- new dx, rx w doxy Code(s): A74.9 - Chlamydial infection, unspecified (4) Potential exposure to STD: Comment: History of gonorrhea, treated 2020; recurrent chlamydia, treated 2020; recurrent trichomoniasis, treated 2020; bacterial vaginosis and recurrent chlamydia- neris ated 2020 Code(s): Z20.2 - Contact with and (suspected) exposure to infections with a predominantly sexual mode of transmission Plan Vaginal cervical discharge testing was done for gonorrhea chlamydia trichomoniasis as well as Gardnerella and Emiliana her discharge appeared very within normal limits today. Discussed safer sex in general and transmission which she is well aware of. Also reminded her that there are labs ordered for HIV hep B hep C and syphilis orders that I placed in April that are still there, and if she has any that she has to do for her primary as well, she can do them at any time but she may as well do them altogether. I re sent the prescription for her control pill so she is not going to run out in the next year and I wished her luck with the weight loss challenge and we did discuss the challenges of intake and output and calories and food choices.. Orders: Orders Bacterial Vaginosis Panel Today A74.9 - Chlamydial infection, unspecified CT NG by PCR Today A74.9 - Chlamydial infection, unspecified Medications: Refilled desog-e.estradiol/e.estradiol 0.15-0.02 mgx21 /0.01 mg x 5 (Tonia (28)) 1 tab PO DAILY 84 tabs 4RF Coding Level of Care Code Est Pt Level 3 (34616) Diagnoses Counseling for control, oral contraceptives Z30.09 Obesity (BMI 35.0-39.9 without comorbidity) E66.9 Chlamydia infection A74.9 Potential exposure to STD Z20.2
== END 2022-09-06 15:44 | disposition home or self-care (01) ==
PROVIDERS: PCP Physician Assistant; Visit Provider Advanced Practice Midwife
DX: Z30.09 Encounter for other general counseling and advice on contraception (principal); E66.9 Obesity, unspecified; A74.9 Chlamydial infection, unspecified; Z20.2 Contact with and (suspected) exposure to infections with a predominantly sexual mode of transmission
CPT/HCPCS: 99213

== ENCOUNTER 2022-09-06 14:20 | Outpatient (REF) | payer MEDICAID, SELFPAY ==
[2022-09-06 19:31] LABS: CT PCR NOT DETECTED (Not Detect.); NG PCR NOT DETECTED (Not Detect.)
[2022-09-07 14:54] LABS: BV Int Neg Control Negative (Negative); BV Int Pos Control Positive (Positive)
== END 2022-09-06 14:21 | disposition home or self-care (01) ==
LOC: HO.LNP 14:20
PROVIDERS: Visit Provider Advanced Practice Midwife
DX: A74.9 Chlamydial infection, unspecified (principal); Z20.2 Contact with and (suspected) exposure to infections with a predominantly sexual mode of transmission; E66.9 Obesity, unspecified
CPT/HCPCS: 0353U; 87480; 87510; 87660; 99213

== ENCOUNTER 2022-11-03 14:23 | Outpatient (AMB) | payer MEDICAID, SELFPAY ==
--- NOTE | 2022-11-03 14:25 | MHC.OFFVIS ---
Intake Vital Signs 11/03/22 14:27 Height 5 ft 1 in Weight 196 lb BMI 37.0 BP 110/78 Blood Pressure Location Rt brachial Position Sitting Pulse 110 H Pulse Source Pulse Oximeter Pulse Oximetry (%) 97 Oxygen Delivery Method Room Air Intake Visit Reasons: 3month f/u Migraines-LVM Intake Note: Patient presents for 3 month follow up. Patient states my migraines have gone down a little the only thing the pill it helps but the first 30 minutes I have this feeling of chills and weird feeling all over after 30 minutes it works. Allergies No Known Allergies Allergy (Verified 11/03/22 14:29) HPI HPI Comments History of Present Illness Details 22-yr-old female presents for f/u visit. Pt denies any significant interval medical changes. Pt is having an occasional migraine headache. Sumatriptan is helpful, but does cause chills sensation x's 30-40 minutes. She sometimes takes Sumatripatn w/ Ibuprofen. The headcahe usually subsides w/in 30-60 minutes. She is still having sleep difficulties, difficulty waking up in am. She uses Nyquil prn. She has not picked up HST yet. She is trying to exercise more regularly- does HIT type training- when she can wake up in the am. [facility] Medical History Cervical cancer screening Surgical History Hx of tonsillectomy Family History Father No problems noted. 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 - [employer] Sexual orientation: Straight/Heterosexual Gender identity: Female Cognitive needs: No Hearing needs: No Vision needs: Yes (Need eye referral has not seen an eye doctor for about 3 years) Female Reproductive History Menstrual Age of Menarche: 10 Review of Systems Const All systems reviewed & are unremarkable except as noted in HPI and below Physical Exam Vital Signs: Last Vital Signs Pulse 110 H 11/03/22 14:27 BP 110/78 11/03/22 14:27 Pulse Ox 97 11/03/22 14:27 Oxygen Delivery Method Room Air 11/03/22 14:27 BMI result Body Mass Index 37.0 Const General: cooperative and no acute distress Orientation/consciousness: patient oriented x3 HEENT Head: Yes normocephalic Resp Effort & Inspection: normal respiratory effort and able to speak in complete sentences Neuro General: patient oriented x3, gait normal and CN's II-XI intact bilaterally Cognition (Neuro): normal cognition Motor exam (neuro): 5/5 motor strength present throughout Psych Appearance: grossly normal Mental Status: mental status grossly normal Speech and movement: Normal speech and movement present Affect: normal affect Attitude: cooperative Thought process: Normal thought process present Thought content: Normal thought content present Insight: Good insight present (Psych) Judgement: Good judgement present (Psych) Assessment & Plan Assessment & Plan (1) Migraine without aura: Code(s): G43.009 - Migraine without aura, not intractable, without status migrainosus Qualifiers: Status migrainosus presence: without status migrainosus Intractability: not intractable Qualified Code(s): G43.009 - Migraine without aura, not intractable, without status migrainosus (2) Sleep difficulties: Code(s): G47.9 - Sleep disorder, unspecified (3) Snoring: Code(s): R06.83 - Snoring (4) Excessive daytime sleepiness: Code(s): G47.19 - Other hypersomnia Plan Pt again advised to undergo HST to assess for sleep apnea. Pt may benefit from reading/listening to Say [place] to Insomnia by Dr Max Jhaveri or similar CBTi resources. ? For overall headache management: Discussed importance of good self-care, including but not limited to maintaining a healthy diet, adequate fluid intake, adequate sleep, and engaging in regular physical activity. Track headaches. ? For acute headache treatment: Continue Sumatriptan 100mg tab, 1/2 - 1 tab (50-100mg) at onset of headache, may repeat in 2 hours. Max of 2 tabs (200mg) per 24 hours. May adjunct with OTC Tylenol 650mg q 4 hours, Ibuprofen 600mg q 6 hours, or Naproxen 440mg q 12 hrs prn. Previous acute migraine medication trials: Ibuprofen. Acute migraine medication contraindications: None at this time ? For headache prevention medication: Will not initiate any preventive agents at this time, as migraine attacks are more sporadic. Previous migraine prevention medication trials: Amitriptyline 25mg qhs- ineffective. Migraine prevention medication contraindications: None at this time. Future considerations- Mag, B2, retrying Amitriptyline. ? Pt to follow-up in 6 months or sooner prn. Coding Level of Care Code Est Pt Level 4 (32442) Diagnoses Migraine without aura and without status migrainosus, not intractable G43.009 Status migrainosus presence: without status migrainosus Intractability: not intractable Sleep difficulties G47.9 Snoring R06.83 Excessive daytime sleepiness G47.19
[2022-11-03 14:27] VITALS: BP 110/78; PULSE 110; O2SAT 97; BMI 37.0
== END 2022-11-03 15:10 | disposition home or self-care (01) ==
PROVIDERS: PCP Physician Assistant; Visit Provider Nurse Practitioner Family
DX: G43.009 Migraine without aura, not intractable, without status migrainosus (principal); G47.9 Sleep disorder, unspecified; R06.83 Snoring; G47.19 Other hypersomnia
CPT/HCPCS: 99214

== ENCOUNTER → 2022-11-03 14:23 | Outpatient (BNVA) | payer MEDICAID, SELFPAY | PROVIDERS: PCP Physician Assistant; Visit Provider Nurse Practitioner Family | DX: G43.009 Migraine without aura, not intractable, without status migrainosus (principal); R06.83 Snoring; G47.19 Other hypersomnia | CPT/HCPCS: 99212 ==

== ENCOUNTER 2024-03-18 10:33 | Outpatient (AMB) | payer OTHER, SELFPAY ==
[2024-03-18 10:46] VITALS: BP 110/68; BMI 33.1
--- NOTE | 2024-03-18 10:46 | MHC.OFFVIS ---
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 Stitcher Hand Required: No Stitcher Hand Services: Stitcher Hand Present Information Interpreted: clinical only Grain Merchandising Manager: Grain Merchandising Manager Present Allergies No Known Allergies Allergy (Verified 03/18/24 10:47) Medication List - Last Reconciled 03/18/24 by Stephanie Piedra CNM amitriptyline 25 mg PO BEDTIME 90 days betamethasone dipropionate 0.05% appl topical BID PRN desog-e.estradiol/e.estradiol 0.15-0.02 mgx21 /0.01 mg x 5 (Viorele (28)) 1 tab PO DAILY guselkumab (Tremfya) 100 mg subcut Q8W ibuprofen 600 mg PO Q8H PRN sumatriptan succinate 50 - 100 mg orally at onset of headache, may repeat in 2 hrs PRN; max 2 tabs per day or 4 tabs/week (may take with Ibuprofen) 30 days Is last menstrual period known: Yes Last menstrual period: 03/09/24 HPI HPI 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 She is currently not on control pills because her she lost insurance for a while so she had not taken them since July she would like to resume them again.. She does get migraines but she does not get an aura with them she takes her medications rarely and only if she really needs to but not that often.. She is sexually active she decided that she was open to getting screens for STIs she has no particular current concerns at this time. 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 She tries to eat right and takes care of herself and she does CrossFit and she just did a CrossFit competition this weekend and she feels sore all over. She does have psoriasis that is controlled better with her injectable medication. She said she started out with eczema but it progressed to psoriasis. She does see a navy fighter pilot for it. [facility] Medical History (Updated 03/18/24 @ 11:23 by Stephanie Piedra CNM) Cervical cancer screening Surgical History Hx of tonsillectomy Family History Father No problems noted. 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 - [employer] Sexual orientation: Straight/Heterosexual Gender identity: Female Cognitive needs: No Hearing needs: No Vision needs: Yes (Need eye referral has not seen an eye doctor for about 3 years) Female Reproductive History Menstrual Age of Menarche: 10 Duration of menses: 3-5 days Date of last menstrual period: 03/09/24 Total pregnancies: 0 Date of last pap smear: 03/12/20 (negative) History of abnormal pap smear: Yes (2019,abn.) Physical Exam Vital Signs: Last Vital Signs BP 110/68 03/18/24 10:46 BMI result Body Mass Index 33.1 Const Other: Patient has differently pigmented areas all over the skin with some plaques from her psoriasis. Many of the areas on shoulders and chest are round giving the appearance of tinea versicolor, but she says they are all psoriasis, and respond to the injectable medication she gets. General: healthy appearing, comfortable, no acute distress, well developed and alert Nutritional Appearance: average body habitus Orientation/consciousness: patient oriented x3 Limitations: no limitations HEENT Head: Yes normocephalic Neck Neck: Yes normal visual inspection Chest Chest palpation & inspection: normal inspection of the chest Breast/axilla inspection: normal inspection of the breasts and normal inspection of the axillae Breast/axilla palpation: normal palpation of the breasts and normal palpation of the axillae Resp Effort & Inspection: normal respiratory effort GI Inspection: Yes normal to inspection, No Abdominal wall edema and No distended Palpation (GI): Soft to palpation and nontender Other: External exam within limits vagina is pink and moist cervix is nulliparous pink smooth mobile nontender tightly closed small amount of yellowish whitish discharge noted slight redness at the os.. Uterus small midposition midplane mobile nontender adnexa nontender good tone with Kegel. General: Yes bladder normal to palpation External Female Exam: normal external appearance and normal appearance of the urethra Speculum Exam - Vagina: normal appearance of the vagina, normal palpation and normal vaginal discharge Speculum Exam - Cervix: normal appearance of the cervix, normal palpation and nontender Bimanual exam- vagina & uterus: normal bimanual exam, normal palpation, uterine size normal, bladder normal to palpation, consistency normal, normal palpation, uterine mobility normal, uterine shape normal, No Cervical tenderness present, non-tender and no cervical motion tenderness Bimanual Exam- Adnexa, other: normal adnexae, no masses, normal and No adnexal tenderness Neuro General: patient oriented x3 Assessment & Plan Assessment & Plan (1) Cervical cancer screening: Comment: neg pap 2020; Pap done 03/18/2024... Code(s): Z12.4 - Encounter for screening for malignant neoplasm of cervix Category: Medical (2) control counseling: Code(s): Z30.09 - Encounter for other general counseling and advice on contraception Category: Medical (3) Potential exposure to STD: Comment: History of gonorrhea, treated 2020; recurrent chlamydia, treated 2020; recurrent trichomoniasis, treated 2020; bacterial vaginosis and recurrent chlamydia- treated 2020 Code(s): Z20.2 - Contact with and (suspected) exposure to infections with a predominantly sexual mode of transmission Category: Medical (4) Well woman exam with routine gynecological exam: Comment: first pap done 03/11/20.; Code(s): Z01.419 - Encounter for gynecological examination (general) (routine) without abnormal findings Category: Medical (5) Counseling for control, oral contraceptives: Comment: Patient wishes to resume the OCPs that she could not get when her insurance dropped to restart with next menses within 1st couple of heavy days, Code(s): Z30.09 - Encounter for other general counseling and advice on contraception Category: Medical Plan -----Discussed in this visit the following: healthy balanced diet, regular and consistent exercise, getting recommended health screens, doing the best she can for her particular health concerns, kegel exercises, pap smear screening and followup recommendations, mammography screening and SBE, normal changes in cycles in her life stage--- . Reviewed the challenges of her psoriasis she is under care of a navy fighter pilot in [facility] for an it helps. Applauded her excellent workout regimen and efforts to be healthy.. Reviewed restarting the OCPs I recommend she start perhaps on the 2nd day of her menses before gets light and take 1 pill every day in place the day of the week sticker as appropriate at the top of the pack so she does not get mixed up. Reviewed taking OCPs she feels well-versed as she was on them for a while. Offered blood work for STIs for HIV hep B hep C and syphilis she considered for while and decided she would do them after all. Testing during the visit was done for gonorrhea chlamydia trichomoniasis come as well as bacterial vaginosis and yeast and we will inform of any positive and offer treatment as appropriate. Pap smear was done as well. She will be seeing her primary care provider in May and probably will be getting some fasting blood work then said she would get these done now.. RTC 1 year or p.r.n. Orders: Orders Hepatitis B Surface Antigen Today Z01.419 - Encounter for gynecological examination (general) (routine) without abnormal findings, Z12.4 - Encounter for screening for malignant neoplasm of cervix, Z20.2 - Contact with and (suspected) exposure to infections with a predominantly sexual mode of transmission, Z30.09 - Encounter for other general counseling and advice on contraception Hepatitis C Antibody Today Z01.419 - Encounter for gynecological examination (general) (routine) without abnormal findings, Z12.4 - Encounter for screening for malignant neoplasm of cervix, Z20.2 - Contact with and (suspected) exposure to infections with a predominantly sexual mode of transmission, Z30.09 - Encounter for other general counseling and advice on contraception HIV Ab/Ag Today Z01.419 - Encounter for gynecological examination (general) (routine) without abnormal findings, Z12.4 - Encounter for screening for malignant neoplasm of cervix, Z20.2 - Contact with and (suspected) exposure to infections with a predominantly sexual mode of transmission, Z30.09 - Encounter for other general counseling and advice on contraception Syphilis Screen Today Z01.419 - Encounter for gynecological examination (general) (routine) without abnormal findings, Z12.4 - Encounter for screening for malignant neoplasm of cervix, Z20.2 - Contact with and (suspected) exposure to infections with a predominantly sexual mode of transmission, Z30.09 - Encounter for other general counseling and advice on contraception Medications: Refilled desog-e.estradiol/e.estradiol 0.15-0.02 mgx21 /0.01 mg x 5 (Tonia (28)) 1 tab PO DAILY 84 tabs 4RF Coding Level of Care Code Est Pt Prev Care 18-39y(39369) Diagnoses Cervical cancer screening Z12.4 control counseling Z30.09 Potential exposure to STD Z20.2 Well woman exam with routine gynecological exam Z01.419 Counseling for control, oral contraceptives Z30.09
== END 2024-03-18 11:25 | disposition home or self-care (01) ==
PROVIDERS: PCP Physician Assistant; Visit Provider Advanced Practice Midwife
DX: Z01.419 Encounter for gynecological examination (general) (routine) without abnormal findings (principal)
CPT/HCPCS: 99395; 99459

== ENCOUNTER 2024-03-18 10:33 | Outpatient (REF) | payer OTHER, SELFPAY ==
--- OUTSIDE RECORDS SUMMARY | 2024-03-18 12:24 | XMS_ITS | Encounter Summary ---
Author Organization [facility] Address [address] [place] [phone] Phone Care Team Providers Care Ventilation Mechanic Name Role Phone Josselyn Jones MD Primary Care Provider Unavailabl e Encounter Details Date Type Department Care Team (Late st Contact Info) Description 08/20/2009 Documentation [facility] [place] Family Medicine [address] [place] [address] Family Medicine, Physician [address] [place], [place] [phone] Social History Tobacco Use Types Packs/Day Years Used Date Smoking Tobacco: Never Assessed Comments Unknown Sex and Gender Information Value Date Recorded Sex Assigned at Not on file Legal Sex Female 5:14 PM EDT Gender Identity Not on file Sexual Orientation Not on file documented as of this encounter Plan of Treatment Not on file documented as of this encounter Visit Diagnoses Not on filedocumented in this encounter Care Teams Ventilation Mechanic Relationship Specialty Start Date End Date Josselyn Jones MD PCP - General 09/22/16 documented as of this encounter
--- OUTSIDE RECORDS SUMMARY | 2024-03-18 12:24 | XMS_ITS | Encounter Summary ---
Author Organization [facility] Address [address] [place] [address] Phone Care Team Providers Care Committee Member Name Role Phone Josselyn Jones MD Primary Care Provider Unavailabl e Encounter Details Date Type Department Care Team (Late st Contact Info) Description 09/28/2016 Conversion Encounter [facility] [place] [place] [address] Social History Tobacco Use Types Packs/Day Years Used Date Smoking Tobacco: Never Comments:Never smoker Comments Unknown Sex and Gender Information Value Date Recorded Sex Assigned at Not on file Legal Sex Female 5:14 PM EDT Gender Identity Not on file Sexual Orientation Not on file documented as of this encounter Plan of Treatment Not on file documented as of this encounter Visit Diagnoses Not on filedocumented in this encounter Care Teams Committee Member Relationship Specialty Start Date End Date Josselyn Jones MD PCP - General 09/22/16 documented as of this encounter
--- OUTSIDE RECORDS SUMMARY | 2024-03-18 12:24 | XMS_ITS | Encounter Summary ---
Author Organization [facility] Address [address] [place] [phone] Phone Care Team Providers Care Tutoring Manager Name Role Phone Josselyn Jones MD Primary Care Provider Unavailabl e Encounter Details Date Type Department Care Team (Late st Contact Info) Description 06/24/2009 Documentation [facility] [place] [address] [place] [address] Family Medicine, Physician [address], [place] [phone] Social History Tobacco Use Types Packs/Day Years [...] on filedocumented in this encounter Care Teams Tutoring Manager Relationship Specialty Start Date End Date Josselyn Jones MD PCP - General 09/22/16 documented as of this encounter
--- OUTSIDE RECORDS SUMMARY | 2024-03-18 12:24 | XMS_ITS | Encounter Summary ---
Author Organization [facility] Address [address] [place] [address] Phone Care Team Providers Care Rivet Heater Gas Name Role Phone Josselyn Jones MD Primary Care Provider Unavailabl e Encounter Details Date Type Department Care Team (Late st Contact Info) Description 08/10/2011 Documentation [facility] [place] [address] [place] [address] Family Medicine, Physician [address] [place], [place] [phone] Social History Tobacco Use Types Packs/Day Years [...] on filedocumented in this encounter Care Teams Rivet Heater Gas Relationship Specialty Start Date End Date Josselyn Jones MD PCP - General 09/22/16 documented as of this encounter
--- OUTSIDE RECORDS SUMMARY | 2024-03-18 12:24 | XMS_ITS | Encounter Summary ---
Author Organization [facility] Address [address] [place] [address] Phone Care Team Providers Care Dot Compliance Coordinator Name Role Phone Josselyn Jones MD Primary Care Provider Unavailabl e Encounter Details Date Type Department Care Team (Late st Contact Info) Description 08/22/2016 Documentation [facility] [place] [address] Family Medicine, Physician [facility] [place] [address] Social History Tobacco Use Types Packs/Day Years [...] on filedocumented in this encounter Care Teams Dot Compliance Coordinator Relationship Specialty Start Date End Date Josselyn Jones MD PCP - General 09/22/16 documented as of this encounter
--- OUTSIDE RECORDS SUMMARY | 2024-03-18 12:24 | XMS_ITS | Encounter Summary ---
Author Organization [facility] Address [address] [place] [address] Phone Care Team Providers Care Watch Repair Person Name Role Phone Josselyn Jones MD Primary Care Provider Unavailabl e Encounter Details Date Type Department Care Team (Late st Contact Info) Description 04/13/2009 Documentation [facility] [place] Family Medicine [address] [place] [address] Family Medicine, Physician [address] [place], [place] [phone] Social History Tobacco Use Types Packs/Day Years [...] on filedocumented in this encounter Care Teams Watch Repair Person Relationship Specialty Start Date End Date Josselyn Jones MD PCP - General 09/22/16 documented as of this encounter
--- OUTSIDE RECORDS SUMMARY | 2024-03-18 12:24 | XMS_ITS | Encounter Summary ---
Author Organization [facility] Address [address] [place] [address] Phone Care Team Providers Care Malt House Kiln Operator Name Role Phone Josselyn Jones MD Primary Care Provider Unavailabl e Encounter Details Date Type Department Care Team (Late st Contact Info) Description 03/27/2016 Documentation [facility] [place] [facility] [place] [address] Family Medicine, [facility] [place] [address] Social History Tobacco Use Types Packs/Day Years [...] on filedocumented in this encounter Care Teams Malt House Kiln Operator Relationship Specialty Start Date End Date Josselyn Jones MD PCP - General 09/22/16 documented as of this encounter
--- OUTSIDE RECORDS SUMMARY | 2024-03-18 12:24 | XMS_ITS | Encounter Summary ---
Author Organization [facility] Address [address] [place] [address] Phone Care Team Providers Care Panelboard Tank Pumper Name Role Phone Josselyn Jones MD Primary Care Provider Unavailabl e Encounter Details Date Type Department Care Team (Late st Contact Info) Description 08/20/2009 Documentation [facility] [place] Family Medicine [address] [place] [address] Family Medicine, Physician [address] [place], [place] [phone] Social History Tobacco Use Types Packs/Day Years [...] on filedocumented in this encounter Care Teams Panelboard Tank Pumper Relationship Specialty Start Date End Date Josselyn Jones MD PCP - General 09/22/16 documented as of this encounter
--- OUTSIDE RECORDS SUMMARY | 2024-03-18 12:24 | XMS_ITS | Encounter Summary ---
Author Organization [facility] Address [address] [place] [address] Phone Care Team Providers Care Medical Records Technician Name Role Phone Josselyn Jones MD Primary Care Provider Unavailabl e Encounter Details Date Type Department Care Team (Late st Contact Info) Description 06/24/2009 Documentation [facility] [place] Family Medicine [address] [place] [address] Family Medicine, Physician [address] [place], [place] [phone] Social History Tobacco Use Types Packs/Day Years [...] on filedocumented in this encounter Care Teams Medical Records Technician Relationship Specialty Start Date End Date Josselyn Jones MD PCP - General 09/22/16 documented as of this encounter
--- OUTSIDE RECORDS SUMMARY | 2024-03-18 12:24 | XMS_ITS | Clinical Summary ---
Author Organization [facility] Address [address] [place] [address] Phone Care Team Providers Care Spice Blender Name Role Phone Josselyn Jones MD Primary Care Provider Unavailabl e Allergies No known active allergies Medications betamethasone dipropionate 0.05 % cream NATALIO TOPICALLY TO RASH BID FOR 2 WEEKS THEN STOP FOR 2 WEEKS 2 7 Active clobetasol 0.05 % topical foam NATALIO EXT TO THE SCALP D 4 7 Active Fluocinolone Acetonide (DERMA-SMOOTHE/F S SCALP) 0.01 % oil [id number] ; apply by TOPICAL route thin film to damp scalpmassage well and cover. Leave on for 4 hours or overnight then wash off; 0.01 %; 06/13/2016; Active 7 Active FLUOCINOLONE ACETONIDE SCALP 0.01 % oil NATALIO A THIN FILM TO DAMP SCALP. MESSAGE IN WELL AND COVER COMPLETELY. LEAVE ON FOR 4 HOURS OR OVERNIGHT THEN WASH OFF 3 7 Active folic acid 1 MG tablet TK 2 TS PO D 12 7 Active methotrexate 2.5 MG tablet TK 4 TS PO 1 TIME A WK 1 7 Active Active Problems Problem Noted Date Diagnosed Date Brain concussion 10/20/2014 Overweight child with body mass index (BMI) > 99 % for age 0708/20/2009 Assessment & Plan (10/26/2016 6:12 PM EDT): No longer in above 99th%ile drops weight when active in sport. Will restart soccer this year at [employer] Seborrheic psoriasis Immunizations Name Administration Dates Next Due DTaP 5 06/27/2002, 0,01/28/1999,11/19,1998 HPV, Quadrivalent 09/09/2010,03/31/2010,08/21/19 10 Hep A, ped/adol 10/17/2013,09/09/2010 Hep B, ped/adol 07/01/1999,01/28/1999,1998 Hib (PRP-T) 10/07/1999, 9,1998,09/10 IPV 06/27/2002, 0,1998,09/10 Influenza Split 11/12/2012 Influenza, injectable, quadr ivalent, preservative free 10/26/2016,10/26/2015,10/20/2014,10/17 MMR 06/27/2002,07/01/1999 Meningococcal Conj (Menactra) MCV4P 10/20/2014,0 08/20/2009 Pneumococcal Conjugate 01/13/2000,10/07/1999 Tdap 07/24/2008 Varicella 08/08/2007,07/01/1999 Family History Medical History Relation Name Comments No Known Problems Mother Marquita Relation Name Status Comments Cousin Cousin: Autism Mother Marquita Alive Mother: Migrain es, Obesity Other 1 grandparents: D iabetes mellitus, Hyperlipidemia, No Family history of No history of Hypertension Other 2 grandparents: D iabetes mellitus, Hyperlipidemia, No Family history of No history of Hypertension Other 3 aunt: Seizure d isorder Other 4 Family history of Thyroid disease, Family history of CVA (Stroke), Family history of Heart disease, Family history of Autism, No family history of Thrombophilia, No family history of Dental caries, Family history of Sudden /AR under age 55 Sister 1 Sister: ADD/ADH D, Depression, Asthma Sister 2 Sister: ADD/ADH D, Depression, Asthma Sister 3 Sister: ADD/ADH D, Depression, Asthma Social History Tobacco Use Types Packs/Day Years Used Date Smoking Tobacco: Never Smokeless Tobacco: Never Comments:Never smoker Alcohol Use Standard Drinks/Week Comments No 0 (1 standard drink = 0.6 oz pur e alcohol) Comments No Sex and Gender Information Value Date Recorded Sex Assigned at Not on file Legal Sex Female 5:14 PM EDT Gender Identity Not on file Sexual Orientation Not on file Last Filed Vital Signs Vital Sign Reading Time Taken Comments Blood Pressure 104/67 10/26/2016 3:28 PM EDT Pulse 73 10/26/2016 3:28 PM EDT Temperature 36.8 ??C (98.2 ??F) 12/22/2015 12:[address] Respiratory Rate - - Oxygen Saturation - - Inhaled Oxygen Concentration - - Weight 71.7 kg (158 lb) 10/26/2016 3:28 PM EDT Height 154.9 cm (5' 1 ) 10/26/2016 3:28 PM EDT Body Mass Index 29.85 10/26/2016 3:28 PM EDT Plan of Treatment Health Maintenance Due Date Last Done Comments Consider Men B Vaccine (1 of 2 - Bexsero 2-dose series) 2014 DTaP,Tdap,and Td Vaccines (7 - Td or Tdap) 07/24/2018 07/24/2008, 06/27/2002, 01/13/2000, Additional history exists Influenza Vaccines (#1) 2023 10/27/19 17, 10/26/2015, 10/20/2014, Additional history exists COVID-19 Vaccine ( season) 2023 Hepatitis B Vaccines Completed 07/01/1999, 01/28/1999, 1998 HIB Vaccines Completed 10/07/1999, 01/12, 1998, Additional history exists Pneumococcal Vaccine Completed 01/13/2000, 10/07/19 00 IPV Vaccines Completed 06/27/2002, 02/1999, 1998, Additional history exists MMR Vaccines Completed 06/27/2002, 07/01/1999 Varicella Vaccines Completed 08/08/2007, 07/01/1999 HPV Vaccines Completed 09/09/2010, 03/15, 08/20/2009 Hepatitis A Vaccines Completed 10/17/2013, 09/10/19 11 Meningococcal Vaccine Completed 10/20/2014, 010 Men B Vaccine Aged Out No longer elig saydajomar based on patient's age to complete this topic Procedures * Due to [place] state law, this organization might not be sharing sensitive test results. Procedure Name Priority Date/Time Associated Diagnosis Comments CHLAMYDIA AND GONORRHEA, AMPLIFIED Routine 12/21/2015 2:40 PM EST from Last 3 Months or Most Recently Relevant to Health Maintenance Results * Due to [place] state law, this organization might not be sharing sensitive test results. * Chlamydia and Gonorrhoea, Amplified (12/21/2015 2:40 PM EST) URINE CHLAMYDIA AMP PROBE NEGATIVE [facility] Comment: No Chlamydia Trachomatis RNA detected in this patient's sample (REFERENCE RANGE/NORMAL VALUE: NOT DETECTED) URINE GC AMP PROBE NEGATIVE [facility] Comment: No Neisseria Gonorrhoeae RNA detected in this patient's sample (REFERENCE RANGE/NORMAL VALUE: NOT DETECTED) NOTE: This test uses stone setter metal optical frames-mediated amplification method to detect rRNA from C.Trachomatis and N.Gonorrhoeae. A negative result does not preclude infection. In the case of a negative urine result, testing of an endocervical(female) or urethral(male) specimen is recommended if there is high clinical suspicion of infection. The performance characteristics of this test have not been evaluated in children. The Aptima Combo2 assay is not intended for the evaluation of suspected sexual abuse or for other medico-legal indications. The ordering provider should assess if the patient had consensual sex without risk of sexual abuse. Consult the [facility] if needed. Contact phone number . Therapeutic failure or success cannot be determined with the Aptima Combo2 assay since nucleic acid may persist following appropriate antimicrobial therapy. The Centers for Disease Control and Prevention (CDC) recommends confirmatory retesting using culture or a different nucleic acid amplification test when positive results occur, if indicated. Testing performed or reported by [facility], a Service of [facility], [facility] [place] [address] CLIA ??[id number] Cristi Callaway MD, PhD, Radio Board Operator 12/21/2015 2:40 PM EST Narrative [facility] - 12/21/2015 2:40 PM EST URINE CHLAMYDIA GC AMP PROBE us Thu Dawson NP LAB MICROBIOLOGY - GENERAL ORD ERABLES Final Result [facility] [address] [place] [address], [place] from Last 3 Months or Most Recently Relevant to Health Maintenance Care Teams Spice Blender Relationship Specialty Start Date End Date Josselyn Jones MD PCP - General 09/22/16
[2024-03-19 02:19] LABS: CT PCR DETECTED (Not Detect.); NG PCR NOT DETECTED (Not Detect.)
[2024-03-19 08:15] LABS: Bacterial Vaginosis PCR POSITIVE (Negative); Candida Group PCR NOT DETECTED (Not Detect); Candida glab krusei PCR NOT DETECTED (Not Detect); Trichomonas vaginalis PCR NOT DETECTED (Not Detect)
== END 2024-03-18 10:34 | disposition home or self-care (01) ==
LOC: HO.LAB 10:33
PROVIDERS: PCP Physician Assistant; Visit Provider Advanced Practice Midwife
DX: Z01.419 Encounter for gynecological examination (general) (routine) without abnormal findings (principal); N89.8 Other specified noninflammatory disorders of vagina; Z20.2 Contact with and (suspected) exposure to infections with a predominantly sexual mode of transmission
CPT/HCPCS: 81515; 87491; 87591; 99395; 99459

== ENCOUNTER 2024-03-18 11:19 | Outpatient (REF) | payer OTHER, SELFPAY | END 2024-03-18 11:20 | disposition home or self-care (01) | LOC: HO.LNP 11:19 | PROVIDERS: Visit Provider Advanced Practice Midwife | DX: Z01.419 Encounter for gynecological examination (general) (routine) without abnormal findings (principal) | CPT/HCPCS: 88175 ==

== ENCOUNTER 2024-04-10 09:41 | Outpatient (REF) | payer OTHER, SELFPAY ==
--- OUTSIDE RECORDS SUMMARY | 2024-04-10 14:32 | XMS_ITS | Encounter Summary ---
Author Organization [facility] Address [address] [place] [address] Phone Care Team Providers Care Laborer Filter Plant Name Role Phone Josselyn Jones MD Primary Care Provider Unavailabl e Encounter Details Date Type Department Care Team (Late st Contact Info) Description 08/22/2016 Documentation [facility] [place] Family Medicine [facility] [place] [address] Family Medicine, Physician [facility] [place] [id number] Social History Tobacco Use Types Packs/Day Years [...] on filedocumented in this encounter Care Teams Laborer Filter Plant Relationship Specialty Start Date End Date Josselyn Jones MD PCP - General 09/22/16 documented as of this encounter
--- OUTSIDE RECORDS SUMMARY | 2024-04-10 14:32 | XMS_ITS | Encounter Summary ---
Author Organization [facility] Address [address] [place] [address] Phone Care Team Providers Care Domestic Travel Consultant Name Role Phone Josselyn Jones MD Primary Care Provider Unavailabl e Encounter Details Date Type Department Care Team (Late st Contact Info) Description 06/24/2009 Documentation [facility] [place] [address] [place] [address] Family Medicine, Physician [address] [place] [id number] Social History Tobacco Use Types Packs/Day Years [...] on filedocumented in this encounter Care Teams Domestic Travel Consultant Relationship Specialty Start Date End Date Josselyn Jones MD PCP - General 09/22/16 documented as of this encounter
--- OUTSIDE RECORDS SUMMARY | 2024-04-10 14:32 | XMS_ITS | Clinical Summary ---
Author Organization [facility] Address [address] [place] [address] Phone Care Team Providers Care Pediatric Associate Name Role Phone Josselyn Jones MD Primary Care Provider Unavailabl e Allergies No known active allergies Medications betamethasone dipropionate 0.05 % cream NATALIO TOPICALLY TO RASH BID FOR 2 WEEKS THEN STOP FOR 2 WEEKS 2 7 Active clobetasol 0.05 % topical foam NATALIO EXT TO THE SCALP D 4 7 Active Fluocinolone Acetonide (DERMA-SMOOTHE/F S SCALP) 0.01 % oil [id number] ; apply by TOPICAL route thin film [...] sport. 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 Procedure Name Priority Date/Time Associated Diagnosis Comments CHLAMYDIA AND GONORRHEA, AMPLIFIED Routine 12/21/2015 2:40 PM EST from Last 3 Months or Most Recently Relevant to Health Maintenance Results * Due to [place] state law, this organization might not be sharing sensitive test results. * Chlamydia and Gonorrhoea, Amplified (12/21/2015 2:40 PM EST) URINE CHLAMYDIA AMP PROBE NEGATIVE [facility] Comment: No Chlamydia Trachomatis RNA detected in this patient's sample (REFERENCE RANGE/NORMAL VALUE: NOT DETECTED) URINE GC AMP PROBE NEGATIVE [facility] Comment: No Neisseria Gonorrhoeae RNA detected in this patient's sample (REFERENCE RANGE/NORMAL VALUE: NOT DETECTED) NOTE: This test uses environmental laboratory technician-mediated amplification method to detect rRNA from C.Trachomatis [...] without risk of sexual abuse. Consult the [facility] if needed. Contact phone number . Therapeutic failure or success cannot be determined with the Aptima Combo2 assay since nucleic acid may persist following appropriate antimicrobial therapy. The Centers for Disease Control and Prevention (CDC) recommends confirmatory retesting using culture or a different nucleic acid amplification test when positive results occur, if indicated. Testing performed or reported by [facility], a Service of [facility], [address] [place] [address] CLIA ??[id number] Cristi Callaway MD, PhD, House Carpenter Helper 12/21/2015 2:40 PM EST Narrative [facility] - 12/21/2015 2:40 PM EST URINE CHLAMYDIA GC AMP PROBE us [place] [facility] - GENERAL ORD ERABLES Final Result [facility] [address] [place] [address], [place] from Last 3 Months or Most Recently Relevant to Health Maintenance Care Teams Pediatric Associate Relationship Specialty Start Date End Date Josselyn Jones MD PCP - General 09/22/16
--- OUTSIDE RECORDS SUMMARY | 2024-04-10 14:32 | XMS_ITS | Encounter Summary ---
Author Organization [facility] Address [address] [place] [address] Phone Care Team Providers Care Wool Fleece Grader Name Role Phone Josselyn Jones MD Primary Care Provider Unavailabl e Encounter Details Date Type Department Care Team (Late st Contact Info) Description 03/27/2016 [place]ation [facility] [place] [facility] [place] [address] Family Medicine, Physician [facility] [place], [place] [phone] Social History Tobacco Use Types Packs/Day Years [...] on filedocumented in this encounter Care Teams Wool Fleece Grader Relationship Specialty Start Date End Date Josselyn Jones MD PCP - General 09/22/16 documented as of this encounter
--- OUTSIDE RECORDS SUMMARY | 2024-04-10 14:32 | XMS_ITS | Encounter Summary ---
Author Organization [facility] Address [address] [place] [address] Phone Care Team Providers Care Information Technology Technician Name Role Phone Josselyn Jones MD Primary Care Provider Unavailabl e Encounter Details Date Type Department Care Team (Late st Contact Info) Description 08/20/2009 Documentation [facility] [place] Family Medicine [address] [place] [address] Family Medicine, Physician [address] [place], [place] [phone] Social History Tobacco Use Types Packs/Day Years [...] on filedocumented in this encounter Care Teams Information Technology Technician Relationship Specialty Start Date End Date Josselyn Jones MD PCP - General 09/22/16 documented as of this encounter
--- OUTSIDE RECORDS SUMMARY | 2024-04-10 14:32 | XMS_ITS | Encounter Summary ---
Author Organization [facility] Address [address] [place] [address] Phone Care Team Providers Care Belt Lacer Name Role Phone Josselyn Jones MD Primary Care Provider Unavailabl e Encounter Details Date Type Department Care Team (Late st Contact Info) Description 04/13/2009 [place]ation [facility] [place] [address] [place] [address] Family Medicine, Physician [address] [place] [phone] Social History Tobacco Use Types Packs/Day Years [...] on filedocumented in this encounter Care Teams Belt Lacer Relationship Specialty Start Date End Date Josselyn Jones MD PCP - General 09/22/16 documented as of this encounter
--- OUTSIDE RECORDS SUMMARY | 2024-04-10 14:32 | XMS_ITS | Encounter Summary ---
Author Organization [facility] Address [address] [place] [address] Phone Care Team Providers Care Loss Prevention Specialist Name Role Phone Josselyn Jones MD Primary Care Provider Unavailabl e Encounter Details Date Type Department Care Team (Late st Contact Info) Description 09/28/2016 Conversion Encounter [facility] [place] [place] [address] Social History Tobacco Use Types Packs/Day Years [...] on filedocumented in this encounter Care Teams Loss Prevention Specialist Relationship Specialty Start Date End Date Josselyn Jones MD PCP - General 09/22/16 documented as of this encounter
--- OUTSIDE RECORDS SUMMARY | 2024-04-10 14:32 | XMS_ITS | Encounter Summary ---
Author Organization [facility] Address [address] [place] [address] Phone Care Team Providers Care Pawn Shop Keeper Name Role Phone Josselyn Jones MD Primary Care Provider Unavailabl e Encounter Details Date Type Department Care Team (Late st Contact Info) Description 06/24/2009 Documentation [facility] [place] [address] [place] [address] Family Medicine, Physician [address] [place] [phone] Social History Tobacco Use Types Packs/Day Years [...] on filedocumented in this encounter Care Teams Pawn Shop Keeper Relationship Specialty Start Date End Date Josselyn Jones MD PCP - General 09/22/16 documented as of this encounter
--- OUTSIDE RECORDS SUMMARY | 2024-04-10 14:32 | XMS_ITS | Encounter Summary ---
Author Organization [facility] Address [address] [place] [address] Phone Care Team Providers Care Private Equity Associate Name Role Phone Josselyn Jones MD Primary Care Provider Unavailabl e Encounter Details Date Type Department Care Team (Late st Contact Info) Description 08/10/2011 Documentation [facility] [place] Family Medicine [address] [place] [address] Family Medicine, Physician [address] [place], [place] [phone] Social History Tobacco Use Types Packs/Day Years [...] on filedocumented in this encounter Care Teams Private Equity Associate Relationship Specialty Start Date End Date Josselyn Jones MD PCP - General 09/22/16 documented as of this encounter
--- OUTSIDE RECORDS SUMMARY | 2024-04-10 14:32 | XMS_ITS | Encounter Summary ---
Author Organization [facility] Address [address] [place] [address] Phone Care Team Providers Care Cinder Snapper Name Role Phone Josselyn Jones MD Primary Care Provider Unavailabl e Encounter Details Date Type Department Care Team (Late st Contact Info) Description 08/20/2009 Documentation [facility] [place] Family Medicine [address] [place] [address] Family Medicine, Physician [address] [place], [place] [phone] Social History Tobacco Use Types Packs/Day Years [...] on filedocumented in this encounter Care Teams Cinder Snapper Relationship Specialty Start Date End Date Josselyn Jones MD PCP - General 09/22/16 documented as of this encounter
[2024-04-10 14:43] LABS: Influenza A PCR NEGATIVE (Negative); Influenza B PCR POSITIVE (Negative); Resp Syncy Virus RNA Qual PCR NEGATIVE (Negative); SARS COV2 PCR INHOUSE NEGATIVE (Negative)
== END 2024-04-10 09:42 | disposition home or self-care (01) ==
LOC: HO.LAB 09:41
PROVIDERS: PCP Physician Assistant; Visit Provider Nurse Practitioner Family
DX: J06.9 Acute upper respiratory infection, unspecified (principal)
CPT/HCPCS: 0241U; 99212

== ENCOUNTER 2024-04-10 09:41 | Outpatient (AMB) | payer OTHER, SELFPAY ==
--- OUTSIDE RECORDS SUMMARY | 2024-04-10 11:04 | XMS_ITS | Encounter Summary ---
Author Organization [facility] Address [address] [place] [address] Phone Care Team Providers Care Home Assessment Nurse Name Role Phone Josselyn Jones MD Primary Care Provider Unavailabl e Encounter Details Date Type Department Care Team (Late st Contact Info) Description 09/28/2016 Conversion Encounter [facility] [place] [place] [address] Social History Tobacco Use Types Packs/Day Years [...] on filedocumented in this encounter Care Teams Home Assessment Nurse Relationship Specialty Start Date End Date Josselyn Jones MD PCP - General 09/22/16 documented as of this encounter
--- OUTSIDE RECORDS SUMMARY | 2024-04-10 11:04 | XMS_ITS | Encounter Summary ---
Author Organization [facility] Address [address] [place] [address] Phone Care Team Providers Care Naval [employer] Name Role Phone Josselyn Jones MD Primary Care Provider Unavailabl e Encounter Details Date Type Department Care Team (Late st Contact Info) Description 08/20/2009 Documentation [facility] [place] [address] [place] [address] Family Medicine, Physician [address], [place] [phone] Social History Tobacco Use Types Packs/Day Years [...] on filedocumented in this encounter Care Teams Naval [employer] Relationship Specialty Start Date End Date Josselyn Jones MD PCP - General 09/22/16 documented as of this encounter
--- OUTSIDE RECORDS SUMMARY | 2024-04-10 11:04 | XMS_ITS | Encounter Summary ---
Author Organization [facility] Address [address] [place] [address] Phone Care Team Providers Care Cyber Security Name Role Phone Josselyn Jones MD Primary Care Provider Unavailabl e Encounter Details Date Type Department Care Team (Late st Contact Info) Description 08/10/2011 Documentation [facility] [place] [address] [place] [address] Family Medicine, Physician [address], [place] [phone] Social History Tobacco Use Types Packs/Day Years [...] on filedocumented in this encounter Care Teams Cyber Security Relationship Specialty Start Date End Date Josselyn Jones MD PCP - General 09/22/16 documented as of this encounter
--- OUTSIDE RECORDS SUMMARY | 2024-04-10 11:04 | XMS_ITS | Encounter Summary ---
Author Organization [facility] Address [address] [place] [address] Phone Care Team Providers Care Yard Clerk Name Role Phone Josselyn Jones MD Primary Care Provider Unavailabl e Encounter Details Date Type Department Care Team (Late st Contact Info) Description 03/27/2016 Document[place] [facility] [place] [facility] [place] [address] Family Medicine, Physician [facility] [place], [place] [phone] Social History Tobacco Use Types Packs/Day Years [...] on filedocumented in this encounter Care Teams Yard Clerk Relationship Specialty Start Date End Date Josselyn Jones MD PCP - General 09/22/16 documented as of this encounter
--- OUTSIDE RECORDS SUMMARY | 2024-04-10 11:04 | XMS_ITS | Clinical Summary ---
Author Organization [facility] Address [address] [place] [address] Phone Care Team Providers Care Utilities And Maintenance Supervisor Name Role Phone Josselyn Jones MD Primary Care Provider Unavailabl e Allergies No known active allergies Medications betamethasone dipropionate 0.05 % cream NATALIO TOPICALLY TO RASH BID FOR 2 WEEKS THEN STOP FOR 2 WEEKS 2 7 Active clobetasol 0.05 % topical foam NATALIO EXT TO THE SCALP D 4 7 Active Fluocinolone Acetonide (DERMA-SMOOTHE/F S SCALP) 0.01 % oil [id number] ; apply by TOPICAL route thin film [...] sport. Will restart soccer this year at [employer] Seborrheic psoriasis Immunizations Immunization Administration Dates Next Due DTaP 5 06/27/2002, [...] of Dental caries, Family history of Sudden /[place] under age 55 Sister 1 Sister: ADD/ADH [...] Health Maintenance Due Date Last Done Comments DTaP,Tdap,and Td Vaccines (7 - Td or [...] B Vaccine Aged Out No longer elig ible based on patient's age to complete this topic Procedures * Due to [place] state law, this organization might not be sharing sensitive test results. Procedure Name Priority Date/Time Associated Diagnosis Comments CHLAMYDIA AND GONORRHEA, AMPLIFIED Routine 12/21/2015 2:40 PM EST from Last 3 Months or Most Recently Relevant to Health Maintenance Results * Due to [place] state law, this organization might not be sharing sensitive test results. * Chlamydia and Gonorrhoea, Amplified (12/21/2015 2:40 PM EST) URINE CHLAMYDIA AMP PROBE NEGATIVE [facility] Comment: No Chlamydia Trachomatis RNA detected in this patient's sample (REFERENCE RANGE/NORMAL VALUE: NOT DETECTED) URINE GC AMP PROBE NEGATIVE [facility] Comment: No Neisseria Gonorrhoeae RNA detected in this patient's sample (REFERENCE RANGE/NORMAL VALUE: NOT DETECTED) NOTE: This test uses campaign developer-mediated amplification method to detect rRNA from C.Trachomatis [...] without risk of sexual abuse. Consult the [facility] if needed. Contact phone number . Therapeutic failure or success cannot be determined with the Aptima Combo2 assay since nucleic acid may persist following appropriate antimicrobial therapy. The Centers for Disease Control and Prevention (CDC) recommends confirmatory retesting using culture or a different nucleic acid amplification test when positive results occur, if indicated. Testing performed or reported by [facility], a Service of [facility], [address] [place] [address] CLIA ??[id number] Cristi Callaway MD, PhD, Diet Technician Registered 12/21/2015 2:40 PM EST Narrative [facility] - 12/21/2015 2:40 PM EST URINE CHLAMYDIA GC AMP PROBE us Thu Dawson PATTERN ILLUSTRATOR LAB MICROBIOLOGY - GENERAL ORD ERABLES Final Result [facility] [address] [place] [address], [place] from Last 3 Months or Most Recently Relevant to Health Maintenance Care Teams Utilities And Maintenance Supervisor Relationship Specialty Start Date End Date Josselyn Jones MD PCP - General 09/22/16
--- OUTSIDE RECORDS SUMMARY | 2024-04-10 11:04 | XMS_ITS | Encounter Summary ---
Author Organization [facility] Address [address] [place] [address] Phone Care Team Providers Care Certified Alcohol And Drug Counselor Name Role Phone Josselyn Jones MD Primary Care Provider Unavailabl e Encounter Details Date Type Department Care Team (Late st Contact Info) Description 06/24/2009 Documentation [facility] [place] [address] [place] [address] Family Medicine, Physician [address] [place], [place] [phone] Social History Tobacco Use Types Packs/Day Years [...] on filedocumented in this encounter Care Teams Certified Alcohol And Drug Counselor Relationship Specialty Start Date End Date Josselyn Jones MD PCP - General 09/22/16 documented as of this encounter
--- OUTSIDE RECORDS SUMMARY | 2024-04-10 11:04 | XMS_ITS | Encounter Summary ---
Author Organization [facility] Address [address] [place] [address] Phone Care Team Providers Care Certified Pharmacy Technician Name Role Phone Josselyn Jones MD Primary Care Provider Unavailabl e Encounter Details Date Type Department Care Team (Late st Contact Info) Description 08/22/2016 Documentation [facility] [place] Medicine [facility] [place] [address] Family Medicine, Physician [facility] [place], [place] [phone] Social History Tobacco Use Types Packs/Day Years [...] filedocumented in this encounter Care Teams Certified Pharmacy Technician Relationship Specialty Start Date End Date Josselyn Jones MD PCP - General 09/22/16 documented as of this encounter
--- OUTSIDE RECORDS SUMMARY | 2024-04-10 11:04 | XMS_ITS | Encounter Summary ---
Author Organization [facility] Address [address] [place] [address] Phone Care Team Providers Care Specialty Person Name Role Phone Josselyn Jones MD Primary Care Provider Unavailabl e Encounter Details Date Type Department Care Team (Late st Contact Info) Description 08/20/2009 Documentation [facility] [place] [address] [place] [address] Family Medicine, Physician [address] [place], [place] [phone] Social History Tobacco Use Types Packs/Day Years [...] on filedocumented in this encounter Care Teams Specialty Person Relationship Specialty Start Date End Date Josselyn Jones MD PCP - General 09/22/16 documented as of this encounter
--- OUTSIDE RECORDS SUMMARY | 2024-04-10 11:04 | XMS_ITS | Encounter Summary ---
Author Organization [facility] Address [address] [place] [address] Phone Care Team Providers Care Lidar Analyst Name Role Phone Josselyn Jones MD Primary Care Provider Unavailabl e Encounter Details Date Type Department Care Team (Late st Contact Info) Description 04/13/2009 Documentation [facility] [place] [address] [place] [address] Family Medicine, Physician [address], [place] [phone] Social History Tobacco Use Types Packs/Day Years [...] on filedocumented in this encounter Care Teams Lidar Analyst Relationship Specialty Start Date End Date Josselyn Jones MD PCP - General 09/22/16 documented as of this encounter
--- OUTSIDE RECORDS SUMMARY | 2024-04-10 11:04 | XMS_ITS | Encounter Summary ---
Author Organization [facility] Address [address] [place] [address] Phone Care Team Providers Care Cdl Bulk Driver Name Role Phone Josselyn Jones MD Primary Care Provider Unavailabl e Encounter Details Date Type Department Care Team (Late st Contact Info) Description 06/24/2009 Documentation [facility] [place] Family Medicine [address] [place] [address] Family Medicine, Physician [address] [place], [place] [phone] Social History Tobacco Use Types Packs/Day Years [...] on filedocumented in this encounter Care Teams Cdl Bulk Driver Relationship Specialty Start Date End Date Josselyn Jones MD PCP - General 09/22/16 documented as of this encounter
--- NOTE | 2024-04-10 11:29 | AM.OFFWIN_ITS ---
Intake Vital Signs 04/10/24 11:37 Weight 181 lb BP 110/74 Blood Pressure Location Rt brachial Position Sitting Pulse 81 Pulse Source Pulse Oximeter Temp 98.1 F Temp Source Oral Pulse Oximetry (%) 98 Oxygen Delivery Method Room Air Intake Visit Reasons: Ep flu like symptoms [phone] Intake Note: Patient here for cough, nausea and SOB that has been present since sunday Patient Tobacco Use Status: Never used Tobacco Allergies No Known Allergies Allergy (Verified 04/10/24 11:30) Do you need a note to return to daycare/school/sports/work: Yes HPI HPI Comments History of Present Illness Details 23 y/o female patient who presents to [facility] walk in clinic with c/o URI symptoms since Sunday. Reports cough, chest congestion, SOB and nausea but no vomiting. 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 [facility] Medical History (Updated 04/10/24 @ 11:49 by Perla Hooper NP) Acute respiratory disease Cervical cancer screening Surgical History Hx of tonsillectomy Family History Father No problems noted. 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 Sexual orientation: Straight/Heterosexual Gender identity: Female Cognitive needs: No Hearing needs: No Vision needs: Yes (Need eye referral has not seen an eye doctor for about 3 years) Female Reproductive History Menstrual Age of Menarche: 10 Review of Systems Const All systems reviewed & are unremarkable except as noted in HPI and below Physical Exam Vital Signs: Last Vital Signs Temp 98.1 F 04/10/24 11:37 Pulse 81 04/10/24 11:37 BP 110/74 04/10/24 11:37 Pulse Ox 98 04/10/24 11:37 Oxygen Delivery Method Room Air 04/10/24 11:37 Const General: cooperative and no acute distress Nutritional Appearance: overweight Orientation/consciousness: patient oriented x3 HEENT Head: Yes normocephalic Ears: external ears normal and TM abnormal with fluid behind the TM bilateral General nose exam: Abnormal mucous membranes and turbinates present pale and Nasal discharge present Face and sinus: Yes sinuses nontender Mouth: moist mucous membranes Throat: Yes uvula midline Resp Effort & Inspection: normal respiratory effort and able to speak in complete sentences Auscultation: clear to auscultation bilaterally, no crackles, no rales, no rhonchi and no wheezes Cardio Heart sounds: S1 normal heart sound present and S2 normal heart sound present Neuro General: patient oriented x3 Assessment & Plan Assessment & Plan (1) Acute respiratory disease: Code(s): J06.9 - Acute upper respiratory infection, unspecified Plan: Ordered SARs Due to recent Influenza exposure, ordered Tamiflu. Acetaminophen for pain relief Rest and hydrate well with plenty of fluids. Orders: Orders SARS-CoV2/FLU/RSV Today J06.9 - Acute upper respiratory infection, unspecified Medications: New acetaminophen 1,000 mg (2 x 500 mg) PO Q6H PRN 30 caps 0RF pain J06.9 - Acute upper respiratory infection, unspecified oseltamivir (Tamiflu) 75 mg PO BID 5 days 10 caps 0RF J06.9 - Acute upper respiratory infection, unspecified Coding Level of Care Code Est Pt Level 4 (61897) Diagnoses Acute respiratory disease J06.9 Time Spent (min) 20
[2024-04-10 11:37] VITALS: BP 110/74; PULSE 81; TEMP 36.7; O2SAT 98
== END 2024-04-10 12:03 | disposition home or self-care (01) ==
PROVIDERS: PCP Physician Assistant; Visit Provider Nurse Practitioner Family
DX: J06.9 Acute upper respiratory infection, unspecified (principal)

== ENCOUNTER 2024-05-21 13:28 | Outpatient (AMB) | payer OTHER, SELFPAY ==
[2024-05-21 13:41] VITALS: BP 110/72; PULSE 82; TEMP 36.3; O2SAT 98; BMI 33.5
--- NOTE | 2024-05-21 13:41 | MHC.PC.OV ---
Vital Signs 05/21/24 13:41 Height 5 ft 1 in Weight 177 lb 6 oz BMI 33.5 BP 110/72 Blood Pressure Location Lt brachial Position Sitting Pulse 82 Pulse Source Pulse Oximeter Temp 97.3 F Temp Source Temporal Artery Scan Pulse Oximetry (%) 98 Oxygen Delivery Method Room Air Intake Visit Reasons: Annual PE Sporting Goods Sales Manager Required: No Accompanied by: Self / Same As Patient Allergies No Known Allergies Allergy (Verified 05/21/24 13:52) Medication List - Last Reconciled 05/21/24 by Jesus Mendenhall PA-C acetaminophen 1,000 mg (2 x 500 mg) PO Q6H PRN clobetasol 0.05% topical fluocinolone and shower cap 0.01 % topical guselkumab (Tremfya) mg subcut hydrocortisone 2.5% appl topical triamcinolone acetonide 0.1% 1 appl topical BID-TID Tobacco use date assessed: 05/21/24 Dental Screening Dental Screen Date: 05/21/24 Did you have a dental visit in the last 12 months?: Yes Did you have a dental problem in the last 6 months where you did not have access to dental care?: No Was dental information given to patient?: Patient has dentist HPI Annual PE HPI Details Patient is a 23-year-old female here today for a routine annual physical. Patient has a past medical history significant for obesity, migraines and psoriasis. Concern--> patient reports having intermittent right forearm pain and tightness and numbness. She is concerned about a nerve issue. She also reports having migraines that are severe though less frequent since she has stopped drinking alcohol. She does follow a neurologist whom has given her sumatriptan to use on an as needed basis. Of note mother had a brain tumor and she is concerned about this. Recently had flu this past flu season was treated with Tamiflu. 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 Considering tetanus vaccine [facility] Medical History Acute respiratory disease Cervical cancer screening Surgical History Hx of tonsillectomy Family History Father No problems noted. Mother Benign tumor Arthritis Migraines Carpal tunnel syndrome Family/Other Substance use disorder Social History (Updated 05/21/24 @ 13:58 by Jesus Mendenhall PA-C) Housing: House Alcohol intake: current Alcohol intake frequency: holidays/special occasions only Patient Tobacco Use Status: Never used Tobacco e-Cigarette/Vaping Use: Never Used Second Hand Smoke Exposure: No service: No Current occupational status: employed Current occupation: [employer] (Closed) Sexual orientation: Straight/Heterosexual Gender identity: Female Cognitive needs: No Hearing needs: No Vision needs: Yes (Need eye referral has not seen an eye doctor for about 3 years) Female Reproductive History Menstrual Age of Menarche: 10 Questionnaire PHQ-9 Over the last 2 weeks, how often have you been bothered by any of the following problems? 1. Little interest or pleasure in doing things: not at all 2. Feeling down, depressed, or hopeless: not at all 3. Trouble falling or staying asleep, or sleeping too much: not at all 4. Feeling tired or having little energy: not at all 5. Poor appetite or overeating: not at all 6. Feeling bad about yourself - or that you are a failure or have let yourself or your family down: not at all 7. Trouble concentrating on things, such as reading the newspaper or watching television: not at all 8. Moving or speaking so slowly that other people could have noticed. Or the opposite - being so fidgety or restless that you have been moving around a lot more than usual: not at all 9. Thoughts that you would be better off or of hurting yourself in some way: not at all Total score: 0 Depression Screening Interpretation: Negative Depression Screening Done: Yes 21407 - PHQ-9 Billing: Yes Source: Developed by Drs. Pierre Bonner, Edie Barrow, Steven Rob and colleagues, with an educational jer from [employer]. Thrive Questionnaire Date Thrive assessed: 05/21/24 I am a: Patient What is your living situation today?: I have a steady place to live Within the past 12 months, did the food you bought not last and you didn't have the money to get more?: Never true Within the past 12 months, did you worry whether your food would run out before you got money to buy more?: Never true Do you have trouble paying for medicines?: No Do you have trouble getting transportation to medical appointments?: No Do you have trouble paying your heating and electricity bill?: No Do you have trouble taking care of your child, family member or friend?: No Do you have trouble with day-to-day activities such as bathing, preparing meals, shopping, managing finances, etc.?: No Are you currently unemployed and looking for a job?: No Are you interested in more education?: No Please select the resources that you would like help with: None Currently or been in a relationship where the following occur: No concerns reported THRIVE Score: 0 AUDIT C Alcohol Use Questionnaire (AUDIT-C) 1. How often do you have a drink containing alcohol?: Never 3. How often do you have six or more drinks on one occasion?: Never Total Score: 0 STEPHANIE-7 AMB Questionnaire STEPHANIE-7 Date STEPHANIE - 7 assessed: 05/21/24 Feeling nervous, anxious, or on edge: 0 = Not at all Not being able to stop or control worryin = Not at all Worrying too much about different things: 0 = Not at all Trouble relaxin = Not at all Being so restless that it is hard to sit still: 0 = Not at all Becoming easily annoyed or irritable: 0 = Not at all Feeling afraid as if something awful might happen: 0 = Not at all Total STEPHANIE-7 score (0-4 normal; 5-9 mild; 10-14 moderate; 15-21 severe): 0 Source: Developed by Drs. Pierre Bonner, Edie Barrow, Steven Rob and colleagues, with an educational jer from [employer]. STEPHANIE-7 Assessment Billing STEPHANIE-7 Assessment Tool: STEPHANIE-7 Assessment 18929 Review of Systems Const Denies body aches, Denies chills, Denies excessive sweating, Denies fatigue, Denies fever(s) and Reports headache(s) Eyes Denies blurry vision ENT Denies dysphagia, Denies vertigo, Denies dizziness, Reports headache(s), Denies hearing loss and Denies tinnitus Card Denies chest pain, Denies chest pain with activity, Denies syncope, Denies irregular heart rhythm and Denies dyspnea Resp Denies chest congestion, Denies cough, Denies hemoptysis, Denies dyspnea and Denies wheezing GI Denies abdominal pain, Denies melena, Denies hematochezia, Denies coffee ground emesis, Denies dysphagia, Denies diarrhea, Denies nausea and Denies vomiting Denies urinary frequency, Denies dysuria, Denies urinary hesitancy and Denies urinary urgency Musc Denies arthralgias, Denies limited range of motion, Denies muscle cramps and Denies muscle weakness Skin/Breast Denies rash and Denies skin ulcer Neuro Denies Abnormal speech present, Denies confusion, Denies vertigo, Denies dizziness, Denies syncope, Reports headache(s), Denies memory loss and Denies seizure-like activity Psych Denies anxiety, Denies confusion, Denies depression, Denies memory loss, Denies panic attacks and Denies paranoia Endo Denies excessive sweating, Denies fatigue, Denies flushing, Denies polydipsia and Denies polyuria Aller/Immun Denies wheezing Physical exam (Primary Care) Vital Signs: Last Vital Signs Temp 97.3 F 05/21/24 13:41 Pulse 82 05/21/24 13:41 BP 110/72 05/21/24 13:41 Pulse Ox 98 05/21/24 13:41 Oxygen Delivery Method Room Air 05/21/24 13:41 BMI result Body Mass Index 33.5 BMI Assessment/Plan discussion: High BMI High, discussed plan: lifestyle, weight reduction, dietary and physical activity Tobacco/Smoking Status: Tobacco use Status Tobacco use date assessed 05/21/24 05/21/24 13:47 Patient Tobacco Use Status Never used Tobacco 05/21/24 13:58 Tobacco use type 07/14/22 16:09 e-Cigarette/Vaping Use Never Used 05/21/24 13:58 PHQ-9: PHQ-9 Score PHQ-9: Total score 0 05/21/24 14:03 Depression Screening Interpretation: Negative Thrive Assessment: Date of Thrive Assessment Date Thrive assessed 05/21/24 05/21/24 13:47 Currently or been in a relationship where the following occur: No concerns reported Const General: cooperative, comfortable, no acute distress, alert and awake; No confusion Orientation/consciousness: oriented to person, oriented to place, patient oriented x3 and No confusion [facility] Head: Yes normocephalic Ears: external ears normal and TM's normal bilaterally Face and sinus: No sinus tenderness Mouth: Normal oral and palatal mucosa present and tongue normal Teeth and gingiva: dentition normal and gingiva normal Throat: Yes posterior oropharynx normal, Yes tonsils normal and Yes uvula midline Eyes Conjunctivae: conjunctivae normal Sclerae: sclerae normal Pupils: Equal, round and reactive pupils present EOM: EOMs intact bilaterally Direct Ophthalmoscopy: No no photophobia Neck Neck: Yes no lymphadenopathy, No tender and Yes no JVD Thyroid: Thyroid normal Carotids: no bruits Chest Chest palpation & inspection: no tenderness Resp Effort & Inspection: normal respiratory effort, no audible wheezes, not labored and no stridor Auscultation: no crackles, no rales, no rhonchi and no wheezes Cardio Jugular venous distension: no JVD Rate: regular rate, not bradycardic and not tachycardic Rhythm: regular rhythm Bruits: no carotid bruits Peripheral pulses: Peripheral pulses 2+ throughout GI Inspection: Yes normal to inspection, No abdominal wall ecchymosis and No visible herniation Palpation (GI): Soft to palpation, nontender, no guarding, not rigid and No hepatosplenomegaly present Auscultation: normoactive bowel sounds General: Yes no CVA tenderness Back/Spine/Pelvis Back: no CVA tenderness and No back tenderness Cervical Spine: cervical ROM normal Thoracic/Lumbar Spine: thoracic and lumbar spine normal to inspection, straight leg raise negative bilaterally, No thoraco-lumbar ROM limited and No lumbar spinal tenderness Skin Lesions: no lesions Rashes: no rashes Wounds: no wounds Neuro General: oriented to person, oriented to place, patient oriented x3, CN's II-XI intact bilaterally and No confusion Cranial nerves: Yes Equal, round and reactive pupils present and Yes Normal accommodation reflex present Cognition (Neuro): normal cognition Speech: No Abnormal speech present Gait exam (Neuro): Normal gait present Motor exam (neuro): 5/5 motor strength present throughout Extrem Right upper extremity: full ROM; no cyanosis Left upper extremity: full ROM; no cyanosis Right lower extremity: no edema Left lower extremity: no edema Psych Appearance: grossly normal Mental Status: mental status grossly normal Affect: normal affect Attitude: cooperative Thought process: Normal thought process present Coding Level of Care Code Est Pt Prev Care 18-39y(28812) Diagnoses Annual physical exam Z00.00 Right forearm pain M79.631 Migraine without aura and without status migrainosus, not intractable G43.009 Intractability: not intractable Status migrainosus presence: without status migrainosus Family history of neoplasm of brain Z84.89 Class 1 obesity E66.811 Additional Codes STEPHANIE-7 Assessment Billing - STEPHANIE-7 Assessment Tool: STEPHANIE-7 Assessment 04280 ([id number]) PHQ-9 - 30225 - PHQ-9 Billing: Yes ([id number]) Assessment & Plan Assessment & Plan (1) Annual physical exam: Code(s): Z00.00 - Encounter for general adult medical examination without abnormal findings Category: Medical Plan: As per HPI (2) Right forearm pain: Code(s): M79.631 - Pain in right forearm Category: Medical Plan: Patient is pretty reports intermittent episodes of right forearm pain, numbness and tingling. Will send for EMG and nerve the velocity study to evaluate for cubital tunnel syndrome. (3) Migraine without aura: Code(s): G43.009 - Migraine without aura, not intractable, without status migrainosus Category: Medical Qualifiers: Intractability: not intractable Status migrainosus presence: without status migrainosus Qualified Code(s): G43.009 - Migraine without aura, not intractable, without status migrainosus Plan: Patient reports a long history of migraines though have gotten less frequent since she has stopped drinking alcohol. She does use sumatriptan and NSAID from time to time for acute migraines. She does have a family history of a brain tumor in her mother. Will send for brain MRI to evaluate for any intracranial pathology (4) Family history of neoplasm of brain: Code(s): Z84.89 - Family history of other specified conditions Category: Medical Plan: As above (5) Class 1 obesity: Code(s): E66.811 - Obesity, class 1 Category: Medical Plan: Patient does understand her BMI is over 30 will work on being more physically active and adapting to better eating habits to reduce her weight Orders: Orders NE electromyogram (EMG) 05/21/24 M79.631 - Pain in right forearm MR head/brain wo con 05/21/24 G43.009 - Migraine without aura, not intractable, without status migrainosus, Z84.89 - Family history of other specified conditions Complete Blood Count no Diff Today Z13.1 - Encounter for screening for diabetes mellitus NE nerve conduction velocity 05/21/24 M79.631 - Pain in right forearm Comprehensive [place]. Panel Fast Today Z13.1 - Encounter for screening for diabetes mellitus
--- OUTSIDE RECORDS SUMMARY | 2024-05-21 15:35 | XMS_ITS | Encounter Summary ---
Author Organization [facility] Address [address] [place] [address] Phone Care Team Providers Care Food Consultant Name Role Phone Josselyn Jones MD Primary Care Provider Unavailabl e Encounter Details Date Type Department Care Team (Late st Contact Info) Description 04/13/2009 Documentation [facility] Family Medicine [address] [place] [address] Family Medicine, Physician [address] [place], [place] [phone] Social History Tobacco Use Types Packs/Day Years [...] on filedocumented in this encounter Care Teams Food Consultant Relationship Specialty Start Date End Date Josselyn Jones MD PCP - General 09/22/16 documented as of this encounter
--- OUTSIDE RECORDS SUMMARY | 2024-05-21 15:35 | XMS_ITS | Encounter Summary ---
Author Organization [facility] Address [address] [place] [address] Phone Care Team Providers Care Supervisor Pipelines Name Role Phone Josselyn Jones MD Primary Care Provider Unavailabl e Encounter Details Date Type Department Care Team (Late st Contact Info) Description 08/20/2009 Documentation [facility] Family Medicine [address] [place] [address] Family Medicine, Physician [address], [place] [phone] Social History Tobacco Use Types Packs/Day Years [...] on filedocumented in this encounter Care Teams Supervisor Pipelines Relationship Specialty Start Date End Date Josselyn Jones MD PCP - General 09/22/16 documented as of this encounter
--- OUTSIDE RECORDS SUMMARY | 2024-05-21 15:35 | XMS_ITS | Encounter Summary ---
Author Organization [facility] Address [address] [place] [address] Phone Care Team Providers Care Vacuum Technician Name Role Phone Josselyn Jones MD Primary Care Provider Unavailabl e Encounter Details Date Type Department Care Team (Late st Contact Info) Description 09/28/2016 Conversion Encounter [facility] [place] [place] [address] Social History Tobacco Use Types Packs/Day Years [...] on filedocumented in this encounter Care Teams Vacuum Technician Relationship Specialty Start Date End Date Josselyn Jones MD PCP - General 09/22/16 documented as of this encounter
--- OUTSIDE RECORDS SUMMARY | 2024-05-21 15:35 | XMS_ITS | Encounter Summary ---
Author Organization [facility] Address [address] [place] [address] Phone Care Team Providers Care Sales Assistant Institutional Sales Name Role Phone Josselyn Jones MD Primary Care Provider Unavailabl e Encounter Details Date Type Department Care Team (Late st Contact Info) Description 08/22/2016 Documentation [facility] [place] [facility] [place] [address] Family Medicine, Physician [facility] [place], [place] [phone] Social History Tobacco Use Types Packs/Day Years [...] on filedocumented in this encounter Care Teams Sales Assistant Institutional Sales Relationship Specialty Start Date End Date Josselyn Jones MD PCP - General 09/22/16 documented as of this encounter
--- OUTSIDE RECORDS SUMMARY | 2024-05-21 15:35 | XMS_ITS | Encounter Summary ---
Author Organization [facility] Address [address] [place] [phone] Phone Care Team Providers Care [employer] Founder Name Role Phone Josselyn Jones MD Primary Care Provider Unavailabl e Encounter Details Date Type Department Care Team (Late st Contact Info) Description 08/20/2009 Documentation [facility] Family Medicine [address] [place] [address] Family Medicine, Physician [address] [place], [place] [phone] Social History Tobacco Use Types Packs/Day Years [...] on filedocumented in this encounter Care Teams [employer] Founder Relationship Specialty Start Date End Date Josselyn Jones MD PCP - General 09/22/16 documented as of this encounter
--- OUTSIDE RECORDS SUMMARY | 2024-05-21 15:35 | XMS_ITS | Encounter Summary ---
Author Organization [facility] Address [address] [place] [address] Phone Care Team Providers Care Crystal Syrup Maker Name Role Phone Josselyn Jones MD Primary Care Provider Unavailabl e Encounter Details Date Type Department Care Team (Late st Contact Info) Description 08/10/2011 Documentation [facility] [place] [address] [place] [address] Family Medicine, Physician [address] [place], [place] [phone] Social History Tobacco Use Types Packs/Day Years [...] on filedocumented in this encounter Care Teams Crystal Syrup Maker Relationship Specialty Start Date End Date Josselyn Jones MD PCP - General 09/22/16 documented as of this encounter
--- OUTSIDE RECORDS SUMMARY | 2024-05-21 15:35 | XMS_ITS | Encounter Summary ---
Author Organization [facility] Address [address] [place] [address] Phone Care Team Providers Care Medical Records Auditor Name Role Phone Josselyn Jones MD Primary Care Provider Unavailabl e Encounter Details Date Type Department Care Team (Late st Contact Info) Description 06/24/2009 Documentation [facility] [place] Family Medicine [address] [place] [address] Family Medicine, Physician [address] [place] [phone] Social History Tobacco Use Types Packs/Day Years [...] in this encounter Care Teams Medical Records Auditor Relationship Specialty Start Date End Date Josselyn Jones MD PCP - General 09/22/16 documented as of this encounter
--- OUTSIDE RECORDS SUMMARY | 2024-05-21 15:35 | XMS_ITS | Encounter Summary ---
Author Organization [facility] Address [address] [place] [address] Phone Care Team Providers Care Contact Manager Name Role Phone Josselyn Jones MD Primary Care Provider Unavailabl e Encounter Details Date Type Department Care Team (Late st Contact Info) Description 06/24/2009 Documentation [facility] [place] Family Medicine [address] [place] [address] Family Medicine, Physician [address] [place], [place] [phone] Social History Tobacco Use Types Packs/Day Years [...] on filedocumented in this encounter Care Teams Contact Manager Relationship Specialty Start Date End Date Josselyn Jones MD PCP - General 09/22/16 documented as of this encounter
--- OUTSIDE RECORDS SUMMARY | 2024-05-21 15:36 | XMS_ITS | Encounter Summary ---
Author Organization [facility] Address [address] [place] [address] Phone Care Team Providers Care Residential Energy Auditor Name Role Phone Josselyn Jones MD Primary Care Provider Unavailabl e Encounter Details Date Type Department Care Team (Late st Contact Info) Description 03/27/2016 Documentation [facility] [place] Medicine [facility] [place] [address] Family Medicine, Physician [facility] [place], [place] [phone] Social History Tobacco Use Types Packs/Day Years [...] on filedocumented in this encounter Care Teams Residential Energy Auditor Relationship Specialty Start Date End Date Josselyn Jones MD PCP - General 09/22/16 documented as of this encounter
--- OUTSIDE RECORDS SUMMARY | 2024-05-21 15:36 | XMS_ITS | Clinical Summary ---
Author Organization [facility] Address [address] [place] [phone] Phone Care Team Providers Care Imaging Center Manager Name Role Phone Josselyn Jones MD Primary Care Provider Unavailabl e Allergies No known active allergies Medications betamethasone dipropionate 0.05 % cream NATALIO TOPICALLY TO RASH BID FOR 2 WEEKS THEN STOP FOR 2 WEEKS 2 7 Active clobetasol 0.05 % topical foam NATALIO EXT TO THE SCALP D 4 7 Active Fluocinolone Acetonide (DERMA-SMOOTHE/F S SCALP) 0.01 % oil [id number] ; apply by TOPICAL route thin film [...] sport. 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 Procedure Name Priority Date/Time Associated Diagnosis Comments CHLAMYDIA AND GONORRHEA, AMPLIFIED Routine 12/21/2015 2:40 PM EST from Last 3 Months or Most Recently Relevant to Health Maintenance Results * Due to [place] state law, this organization might not be sharing sensitive test results. * Chlamydia and Gonorrhoea, Amplified (12/21/2015 2:40 PM EST) URINE CHLAMYDIA AMP PROBE NEGATIVE [facility] Comment: No Chlamydia Trachomatis RNA detected in this patient's sample (REFERENCE RANGE/NORMAL VALUE: NOT DETECTED) URINE GC AMP PROBE NEGATIVE [facility] Comment: No Neisseria Gonorrhoeae RNA detected in this patient's sample (REFERENCE RANGE/NORMAL VALUE: NOT DETECTED) NOTE: This test uses registered medical assistant-mediated amplification method to detect rRNA from C.Trachomatis [...] without risk of sexual abuse. Consult the [facility] if needed. Contact phone number . Therapeutic failure or success cannot be determined with the Aptima Combo2 assay since nucleic acid may persist following appropriate antimicrobial therapy. The Centers for Disease Control and Prevention (CDC) recommends confirmatory retesting using culture or a different nucleic acid amplification test when positive results occur, if indicated. Testing performed or reported by [facility], a Service of [facility], [address] [place] [address] CLIA ??[id number] Cristi Callaway MD, PhD, Music Minister 12/21/2015 2:40 PM EST Narrative [facility] - 12/21/2015 2:40 PM EST URINE CHLAMYDIA GC AMP PROBE us Thu Dawson CAREER SERVICES ASSISTANT LAB MICROBIOLOGY - GENERAL ORD ERABLES Final Result [facility] [address] [place] [address], [place] from Last 3 Months or Most Recently Relevant to Health Maintenance Care Teams Imaging Center Manager Relationship Specialty Start Date End Date Josselyn Jones MD PCP - General 09/22/16
== END 2024-05-21 14:17 | disposition home or self-care (01) ==
LOC: HO.HMCH 13:28
PROVIDERS: PCP Physician Assistant; Visit Provider Physician Assistant
DX: Z00.00 Encounter for general adult medical examination without abnormal findings (principal); M79.631 Pain in right forearm; Z68.33 Body mass index [BMI] 33.0-33.9, adult; E66.811 Obesity, class 1; G43.009 Migraine without aura, not intractable, without status migrainosus; Z84.89 Family history of other specified conditions

== ENCOUNTER → 2024-05-21 13:28 | Outpatient (BNVA) | payer OTHER, SELFPAY | PROVIDERS: PCP Physician Assistant; Visit Provider Physician Assistant | DX: Z00.00 Encounter for general adult medical examination without abnormal findings (principal); L40.9 Psoriasis, unspecified; M79.631 Pain in right forearm; G43.009 Migraine without aura, not intractable, without status migrainosus; E66.811 Obesity, class 1; Z84.89 Family history of other specified conditions; Z68.33 Body mass index [BMI] 33.0-33.9, adult | CPT/HCPCS: 96127; 99395 ==

== ENCOUNTER 2024-05-27 09:25 | Outpatient (REF) | payer OTHER, SELFPAY ==
--- OUTSIDE RECORDS SUMMARY | 2024-05-27 11:29 | XMS_ITS | Encounter Summary ---
Author Organization [facility] Address [address] [place] [address] Phone Care Team Providers Care Zipper Trimmer Name Role Phone Josselyn Jones MD Primary Care Provider Unavailabl e Encounter Details Date Type Department Care Team (Late st Contact Info) Description 09/28/2016 Conversion Encounter [facility] [place] [place] [address] Social History Tobacco Use Types Packs/Day Years [...] on filedocumented in this encounter Care Teams Zipper Trimmer Relationship Specialty Start Date End Date Josselyn Jones MD PCP - General 09/22/16 documented as of this encounter
--- OUTSIDE RECORDS SUMMARY | 2024-05-27 11:29 | XMS_ITS | Encounter Summary ---
Author Organization [facility] Address [address] [place] [address] Phone Care Team Providers Care Crna Name Role Phone Josselyn Jones MD Primary Care Provider Unavailabl e Encounter Details Date Type Department Care Team (Late st Contact Info) Description 06/24/2009 [place]ation [facility] [place] [address] [place] [address] Family Medicine, Physician [address] [place], [place] [phone] Social History Tobacco Use Types Packs/Day Years [...] on filedocumented in this encounter Care Teams Crna Relationship Specialty Start Date End Date Josselyn Jones MD PCP - General 09/22/16 documented as of this encounter
--- OUTSIDE RECORDS SUMMARY | 2024-05-27 11:29 | XMS_ITS | Encounter Summary ---
Author Organization [facility] Address [address] [place] [place] [address] Phone Care Team Providers Care Lottery Sales Clerk Name Role Phone Josselyn Jones MD Primary Care Provider Unavailabl e Encounter Details Date Type Department Care Team (Late st Contact Info) Description 08/20/2009 [place]ation [facility] [place] [address] [place] [address] Family Medicine, Physician [address] [place], [place] [phone] Social History Tobacco Use Types Packs/Day Years [...] on filedocumented in this encounter Care Teams Lottery Sales Clerk Relationship Specialty Start Date End Date Josselyn Jones MD PCP - General 09/22/16 documented as of this encounter
--- OUTSIDE RECORDS SUMMARY | 2024-05-27 11:29 | XMS_ITS | Encounter Summary ---
Author Organization [facility] Address [address] [place] [address] Phone Care Team Providers Care Bag Bailer Name Role Phone Josselyn Jones MD Primary Care Provider Unavailabl e Encounter Details Date Type Department Care Team (Late st Contact Info) Description 06/24/2009 Documentation [facility] Family Medicine [address] [place] [address] Family Medicine, Physician [address] [place], [place] [phone] Social History Tobacco Use Types Packs/Day Years [...] on filedocumented in this encounter Care Teams Bag Bailer Relationship Specialty Start Date End Date Josselyn Jones MD PCP - General 09/22/16 documented as of this encounter
--- OUTSIDE RECORDS SUMMARY | 2024-05-27 11:29 | XMS_ITS | Encounter Summary ---
Author Organization [facility] Address [address] [place] [address] Phone Care Team Providers Care Director Health Name Role Phone Josselyn Jones MD Primary Care Provider Unavailabl e Encounter Details Date Type Department Care Team (Late st Contact Info) Description 08/10/2011 Documentation [facility] Family Medicine [address] [place] [address] Family Medicine, Physician [address] [place] [phone] Social History Tobacco Use Types Packs/Day Years [...] on filedocumented in this encounter Care Teams Director Health Relationship Specialty Start Date End Date Josselyn Jones MD PCP - General 09/22/16 documented as of this encounter
--- OUTSIDE RECORDS SUMMARY | 2024-05-27 11:29 | XMS_ITS | Encounter Summary ---
Author Organization [facility] Address [address] [place] [address] Phone Care Team Providers Care Livestock Farm Workers Name Role Phone Josselyn Jones MD Primary Care Provider Unavailabl e Encounter Details Date Type Department Care Team (Late st Contact Info) Description 08/20/2009 Documentation [facility] [place] [address] [place] [address] Family Medicine, Physician [address] [place], [place] [phone] Social History Tobacco Use Types Packs/Day Years [...] filedocumented in this encounter Care Teams Livestock Farm Workers Relationship Specialty Start Date End Date Josselyn Jones MD PCP - General 09/22/16 documented as of this encounter
--- OUTSIDE RECORDS SUMMARY | 2024-05-27 11:29 | XMS_ITS | Encounter Summary ---
Author Organization [facility] Address [address] [place] [address] Phone Care Team Providers Care Securities Vault Supervisor Name Role Phone Josselyn Jones MD Primary Care Provider Unavailabl e Encounter Details Date Type Department Care Team (Late st Contact Info) Description 04/13/2009 Documentation [facility] [place] Family Medicine [address] [place] [address] Family Medicine, Physician [address] [place], [place] [phone] Social History Tobacco Use Types Packs/Day Years [...] on filedocumented in this encounter Care Teams Securities Vault Supervisor Relationship Specialty Start Date End Date Josselyn Jones MD PCP - General 09/22/16 documented as of this encounter
--- OUTSIDE RECORDS SUMMARY | 2024-05-27 11:29 | XMS_ITS | Encounter Summary ---
Author Organization [facility] Address [address] [place] [address] Phone Care Team Providers Care Project Internship Name Role Phone Josselyn Jones MD Primary Care Provider Unavailabl e Encounter Details Date Type Department Care Team (Late st Contact Info) Description 03/27/2016 Documentation [facility] [place] [facility] [place] [address] Family Medicine, Physician [facility] [place], [place] [address]341 Social History Tobacco Use Types Packs/Day Years [...] on filedocumented in this encounter Care Teams Project Internship Relationship Specialty Start Date End Date Josselyn Jones MD PCP - General 09/22/16 documented as of this encounter
--- OUTSIDE RECORDS SUMMARY | 2024-05-27 11:29 | XMS_ITS | Clinical Summary ---
Author Organization [facility] Address [address] [place] [address] Phone Care Team Providers Care Health Inspector Food Name Role Phone Josselyn Jones MD Primary Care Provider Unavailabl e Allergies No known active allergies Medications betamethasone dipropionate 0.05 % cream NATALIO TOPICALLY TO RASH BID FOR 2 WEEKS THEN STOP FOR 2 WEEKS 2 7 Active clobetasol 0.05 % topical foam NATALIO EXT TO THE SCALP D 4 7 Active Fluocinolone Acetonide (DERMA-SMOOTHE/F S SCALP) 0.01 % oil [id number] ; apply by TOPICAL route thin film [...] sport. Will restart soccer this year at [employer] Seborrheic psoriasis Immunizations Immunization Administration [...] of Dental caries, Family history of Sudden /[place] under age 55 Sister 1 Sister: ADD/ADH [...] complete this topic Procedures * Due to [place] state law, this organization might not be sharing sensitive test results. Procedure Name Priority Date/Time Associated Diagnosis Comments CHLAMYDIA AND GONORRHEA, AMPLIFIED Routine 12/21/2015 2:40 PM EST from Last 3 Months or Most Recently Relevant to Health Maintenance Results * Due to [place] state law, this organization might not be [...] VALUE: NOT DETECTED) NOTE: This test uses perfect binder operator-mediated amplification method to detect rRNA from C.Trachomatis [...] risk of sexual abuse. Consult the [facility] if needed. Contact phone number . Therapeutic failure or success cannot be determined with the Aptima Combo2 assay since nucleic acid may persist following appropriate antimicrobial therapy. The Centers for Disease Control and Prevention (CDC) recommends confirmatory retesting using culture or a different nucleic acid amplification test when positive results occur, if indicated. Testing performed or reported by [facility], a Service of [facility], [address] [place] [address] CLIA ??[id number] Cristi Callaway MD, PhD, Manufacturing Development Engineer 12/21/2015 2:40 PM EST Narrative [facility] - 12/21/2015 2:40 PM EST URINE CHLAMYDIA GC AMP PROBE us Thu Dawson MANAGER OF [employer] LAB MICROBIOLOGY - GENERAL ORD ERABLES Final Result [facility] [address] [place] [address], [place] from Last 3 Months or Most Recently Relevant to Health Maintenance Care Teams Health Inspector Food Relationship Specialty Start Date End Date Josselyn Jones MD PCP - General 09/22/16
--- OUTSIDE RECORDS SUMMARY | 2024-05-27 11:29 | XMS_ITS | Encounter Summary ---
Author Organization [facility] Address [address] [place] [address] Phone Care Team Providers Care Support Team Member Name Role Phone Josselyn Jones MD Primary Care Provider Unavailabl e Encounter Details Date Type Department Care Team (Late st Contact Info) Description 08/22/2016 Documentation [facility] [place] [facility] [place] [address] Family Medicine, Physician [facility] [place], [place] [phone] Social History Tobacco Use Types Packs/Day Years [...] on filedocumented in this encounter Care Teams Support Team Member Relationship Specialty Start Date End Date Josselyn Jones MD PCP - General 09/22/16 documented as of this encounter
[2024-05-28 03:30] LABS: CT PCR NOT DETECTED (Not Detect.); NG PCR NOT DETECTED (Not Detect.)
[2024-05-28 10:14] LABS: Bacterial Vaginosis PCR POSITIVE (Negative); Candida Group PCR DETECTED (Not Detect); Candida glab krusei PCR NOT DETECTED (Not Detect); Trichomonas vaginalis PCR NOT DETECTED (Not Detect)
== END 2024-05-27 09:26 | disposition home or self-care (01) ==
LOC: HO.LAB 09:25
PROVIDERS: PCP Physician Assistant; Visit Provider Advanced Practice Midwife
DX: Z30.09 Encounter for other general counseling and advice on contraception (principal); Z20.2 Contact with and (suspected) exposure to infections with a predominantly sexual mode of transmission; A74.9 Chlamydial infection, unspecified; N89.8 Other specified noninflammatory disorders of vagina
CPT/HCPCS: 81515; 87491; 87591; 99212

== ENCOUNTER 2024-05-27 09:25 | Outpatient (AMB) | payer OTHER, SELFPAY ==
[2024-05-27 09:28] VITALS: BP 110/62; BMI 33.3
--- NOTE | 2024-05-27 09:28 | MHC.OFFVIS ---
Vital Signs 05/27/24 09:28 Height 5 ft 1 in Weight 176 lb BMI 33.3 BP 110/62 Intake Visit Reasons: ESTHELA Supervisor Packing Room Required: No Supervisor Packing Room Services: Supervisor Packing Room Present Information Interpreted: clinical only Breaker Up: Breaker Up Present Allergies No Known Allergies Allergy (Verified 05/27/24 09:29) Medication List - Last Reconciled 05/27/24 by [place] Piedra CNM acetaminophen 1,000 mg (2 x 500 mg) PO Q6H PRN clobetasol 0.05% topical fluocinolone and shower cap 0.01 % topical guselkumab (Tremfya) mg subcut hydrocortisone 2.5% appl topical triamcinolone acetonide 0.1% 1 appl topical BID-TID Is last menstrual period known: Yes Last menstrual period: 05/07/24 HPI HPI ESTHELA: Details: Cure for chlamydia she said that she saw positive results for BV but not for the chlamydia so she was confused but she took the medicine she has broken up with that person keeps giving her all the STDs. She did not start the control pills could she is not sexually active at the moment she can not remember she pick them up from the pharmacy or not she did not go for the blood work for the STDs because she has not had time she left work to come here for this appointment she is very tired today. [facility] Medical History Acute respiratory disease Cervical cancer screening Surgical History Hx of tonsillectomy Family History Father No problems noted. Mother Benign tumor Arthritis Migraines Carpal tunnel syndrome Family/Other Substance use disorder Social History Housing: House Alcohol intake: current Alcohol intake frequency: holidays/special occasions only Patient Tobacco Use Status: Never used Tobacco e-Cigarette/Vaping Use: Never Used Second Hand Smoke Exposure: No service: No Current occupational status: employed Current occupation: [employer] Sexual orientation: Straight/Heterosexual Gender identity: Female Cognitive needs: No Hearing needs: No Vision needs: Yes (Need eye referral has not seen an eye doctor for about 3 years) Female Reproductive History Menstrual Age of Menarche: 10 Duration of menses: 3-5 days Date of last menstrual period: 05/07/24 control method: none Total pregnancies: 0 Date of last pap smear: 03/19/24 (negative) Physical Exam Vital Signs: Last Vital Signs BP 110/62 05/27/24 09:28 BMI result Body Mass Index 33.3 Other: Scant white discharge noted cervix slightly brighter pink but not excessively swabs taken. External Female Exam: normal external appearance and normal appearance of the urethra Speculum Exam - Vagina: normal appearance of the vagina and normal vaginal discharge Speculum Exam - Cervix: normal appearance of the cervix and Cervical os closed Results Reviewed Results Reviewed: Name: Freddy Melchor Age/Sex: 23/F : 2000 Unit#: [id number] Attend Dr: [place] Piedra CNM Re03/18/24 Status: DEP [facility] SPEC : [id number] [place]: 03/18/24-UNK STATUS: COMP REQ : [id number] RECD: 03/18/[address]: [place] Piedra CNM COMP: 03/19/24 ENTERED: 03/18/24-[address] [facility] [address]: Jesus Mendenhall PA-C ORDERED: CT NG by PCR QUERIES: CT NG Source: Vaginal Test Result Flag Reference CT PCR DETECTED A Not Detect. Detected results may be observed after successful antibiotic treatment due to target nucleic acids from residual non-viable chlamydia. As with many diagnostic tests, results from the Xpert CT/NG assay should be interpreted in conjunction with other laboratory and clinical data available to the clinician. Xpert CT/NG performance has not been evaluated in patients less than 14 years of age. The assay should not be used for the evaluation of suspected sexual abuse or for other medico-legal indications. Additional testing is recommended in any circumstance when false positive or false negative results could lead to adverse medical, social or psychological consequences. These results must be reported by the ordering clinician or clinical facility to the [facility] as required by state law. NG PCR NOT DETECTED Not Detect. A not detected test result does not exclude the possibility of infection because test results can be affected by improper specimen collection, concurrent antibiotic therapy, or the number of organisms in the specimen which may be below the sensitivity of the test. As with many diagnostic tests, results from the Xpert CT/NG assay should be interpreted in conjunction with other laboratory and clinical data available to the clinician. Xpert CT/NG performance has not been evaluated in patients less than 14 years of age. The assay should not be used for the evaluation of suspected sexual abuse or for other medico-legal indications. Additional testing is recommended in any circumstance when false positive or false negative results could lead to adverse medical, social or psychological consequences. Name: Freddy Melchor Age/Sex: 23/F Attending: [place] Piedra CNM : 2000 Submitted by: [place] Piedra CNM Copies to: MR #: [id number] Status: [facility] REF Collected: 03/18/24 [facility] Received: 03/19/24 Interpretation Satisfactory for evaluation. Negative for intraepithelial lesion or malignancy.No endocervical cells seen. No endocervical cells seen. Obscuring inflammation. Coccobacilli consistent with shift in vaginal evan. Clinical Information LMP: 03/09/2024 Previous PAP test: 2020, neg, 2019, abn PAP Material Received ThinPrep-Cervical Electronically Signed By: KATRINA Du (ASCP) 03/27/24 1001 As of December 05, 2023, the technical services to include automated prescreening performed by the ThinPrep Imaging System, PAP screening and HPV testing will be performed at [facility] (CLIA #[id number]), [address] [place] [address]. Testing for HPV was performed using the [employer] KENDAL InfoRemate0 system. The presence of HPV in the female genital tract is associated with a number of diseases, including cervical carcinoma. The HPV DNA high risk pool tests for HPV 31, 33, 35, 39, 45, 51, 52, 56, 58, 59, 66 and 68. The testing for HPV 16 and 18 genotypes has also been performed. A positive result indicates detection of nucleic acid sequences from one or more subtypes, whereas a negative result indicates such sequences were not detected. All professional services are performed by [facility] ([address] [place] [address]; ; CLIA #[id number]). The PAP Test is a screening procedure with the inherent possibility of both false negative and false positive results. Results should be interpreted in the context of historic and current clinical findings. Reliability of the PAP Test is enhanced by performing the test on a regular repetitive basis. Patient: Freddy Melchor Age/Sex: 23/F MR#: [id number] Page 1 of 1 END OF REPORT Assessment & Plan Assessment & Plan (1) Potential exposure to STD: Comment: History of gonorrhea, treated 2020 x2; recurrent chlamydia, treated 2020,2021,2022,2024; recurrent trichomoniasis X3 2020, treated 2020; bacterial vaginosis .... 05/27/2024 test of cure for the chlamydia and counseling about safer sex and 100% condom use especially if she goes back with a partner who keeps giving her STDs, discussed long-term protection of her health and reproductive system. Code(s): Z20.2 - Contact with and (suspected) exposure to infections with a predominantly sexual mode of transmission Category: Medical (2) Chlamydia infection: Comment: treated 03/19/20 w zithromax 1g; also +2021, and +2022, both rx'd New infection 03/19/2024-depending on UPI needs Zithromax or doxy, and counseling...ESTHELA 05/27/24, and re counseling,.... Code(s): A74.9 - Chlamydial infection, unspecified Category: Medical (3) control counseling: Code(s): Z30.09 - Encounter for other general counseling and advice on contraception Category: Medical Plan Testing done today for gonorrhea chlamydia trichomoniasis as well as bacterial vaginosis and yeast reminded again the bacterial vaginosis and yeast are not of major consequence but the 1st 3 are and discussed safer sex and protecting herself and her health and future fertility is important. She is not currently sexually active and not planning to be. She is not sure if she picked up the prescriptions or not for the pills I recommend that she consider having them on hand in case something happens to her insurance in the future she is feeling confident that it is secure at this point. Also reminded her to some day get the testing for HIV hep B hep C and syphilis which were ordered at last encounter. She says it is the same partner who she keeps going back with who gives her the infections. Discussed the very real challenges of human relationships and occasional errors in judgment that we will make, but urged protecting herself. Orders: Orders CT NG by PCR Today N89.8 - Other specified noninflammatory disorders of vagina, Z20.2 - Contact with and (suspected) exposure to infections with a predominantly sexual mode of transmission Bacterial Vaginosis Panel Today N89.8 - Other specified noninflammatory disorders of vagina Coding Level of Care Code Est Pt Level 3 (07674) Diagnoses Potential exposure to STD Z20.2 Chlamydia infection A74.9 control counseling Z30.09
--- OUTSIDE RECORDS SUMMARY | 2024-05-27 10:32 | XMS_ITS | Encounter Summary ---
Author Organization [facility] Address [address] [place] [address] Phone Care Team Providers Care Board Hammer Operator Name Role Phone Josselyn Jones MD Primary Care Provider Unavailabl e Encounter Details Date Type Department Care Team (Late st Contact Info) Description 03/27/2016 Documentation [facility] Family Medicine [facility] [address] Family Medicine, Physician [facility] [place], [place] [phone] Social History Tobacco Use Types Packs/Day Years [...] on filedocumented in this encounter Care Teams Board Hammer Operator Relationship Specialty Start Date End Date Josselyn Jones MD PCP - General 09/22/16 documented as of this encounter
--- OUTSIDE RECORDS SUMMARY | 2024-05-27 10:32 | XMS_ITS | Encounter Summary ---
Author Organization [facility] Address [address] [place] [address] Phone Care Team Providers Care Chief Compliance Officer Name Role Phone Josselyn Jones MD Primary Care Provider Unavailabl e Encounter Details Date Type Department Care Team (Late st Contact Info) Description 09/28/2016 Conversion Encounter [facility] [place] [place] [place] [address] Social History Tobacco Use Types Packs/Day Years [...] on filedocumented in this encounter Care Teams Chief Compliance Officer Relationship Specialty Start Date End Date Josselyn Jones MD PCP - General 09/22/16 documented as of this encounter
--- OUTSIDE RECORDS SUMMARY | 2024-05-27 10:32 | XMS_ITS | Encounter Summary ---
Author Organization [facility] Address [address] [place] [address] Phone Care Team Providers Care Livestock Farmer Name Role Phone Josselyn Jones MD Primary Care Provider Unavailabl e Encounter Details Date Type Department Care Team (Late st Contact Info) Description 06/24/2009 Documentation [facility] [place] [address] [place] [address] Family Medicine, Physician [address] [place] [phone] Social History Tobacco Use Types Packs/Day Years [...] on filedocumented in this encounter Care Teams Livestock Farmer Relationship Specialty Start Date End Date Josselyn Jones MD PCP - General 09/22/16 documented as of this encounter
--- OUTSIDE RECORDS SUMMARY | 2024-05-27 10:32 | XMS_ITS | Encounter Summary ---
Author Organization [facility] Address [address] [place] [address] Phone Care Team Providers Care Airline Reservation Agent Name Role Phone Josselyn Jones MD Primary Care Provider Unavailabl e Encounter Details Date Type Department Care Team (Late st Contact Info) Description 08/20/2009 Documentation [facility] [place] [address] [place] [address] Family Medicine, Physician [address] [place] [phone] Social History Tobacco Use Types Packs/Day Years [...] on filedocumented in this encounter Care Teams Airline Reservation Agent Relationship Specialty Start Date End Date Josselyn Jones MD PCP - General 09/22/16 documented as of this encounter
--- OUTSIDE RECORDS SUMMARY | 2024-05-27 10:32 | XMS_ITS | Encounter Summary ---
Author Organization [facility] Address [address] [place] [address] Phone Care Team Providers Care Spray Mixer Name Role Phone Josselyn Jones MD Primary Care Provider Unavailabl e Encounter Details Date Type Department Care Team (Late st Contact Info) Description 04/13/2009 Documentation [facility] [place] Family Medicine [address] [place] [address] Family Medicine, Physician [address] [place], [place] [phone] Social History Tobacco Use Types Packs/Day Years [...] on filedocumented in this encounter Care Teams Spray Mixer Relationship Specialty Start Date End Date Josselyn Jones MD PCP - General 09/22/16 documented as of this encounter
--- OUTSIDE RECORDS SUMMARY | 2024-05-27 10:32 | XMS_ITS | Encounter Summary ---
Author Organization [facility] Address [address] [place] [address] Phone Care Team Providers Care Web Search Evaluator Name Role Phone Josselyn Jones MD Primary Care Provider Unavailabl e Encounter Details Date Type Department Care Team (Late st Contact Info) Description 08/10/2011 Documentation [facility] [place] [address] [place] [address] Family Medicine, Physician [address] [place] [phone] Social History Tobacco Use Types Packs/Day Years [...] on filedocumented in this encounter Care Teams Web Search Evaluator Relationship Specialty Start Date End Date Josselyn Jones MD PCP - General 09/22/16 documented as of this encounter
--- OUTSIDE RECORDS SUMMARY | 2024-05-27 10:32 | XMS_ITS | Encounter Summary ---
Author Organization [facility] Address [address] [place] [address] Phone Care Team Providers Care It Security Manager Name Role Phone Josselyn Jones MD Primary Care Provider Unavailabl e Encounter Details Date Type Department Care Team (Late st Contact Info) Description 06/24/2009 Documentation [facility] [place] [address] [place] [address] Family Medicine, Physician [address] [place], [place] [phone] Social History Tobacco Use Types Packs/Day Years [...] on filedocumented in this encounter Care Teams It Security Manager Relationship Specialty Start Date End Date Josselyn Jones MD PCP - General 09/22/16 documented as of this encounter
--- OUTSIDE RECORDS SUMMARY | 2024-05-27 10:32 | XMS_ITS | Encounter Summary ---
Author Organization [facility] Address [address] [place] [address] Phone Care Team Providers Care Rough Planer Tender Name Role Phone Josselyn Jones MD Primary Care Provider Unavailabl e Encounter Details Date Type Department Care Team (Late st Contact Info) Description 08/22/2016 Documentation [facility] [place] [facility] [place] [address] Family Medicine, Physician [facility] [place], [place] [phone] Social History Tobacco Use Types Packs/Day Years [...] on filedocumented in this encounter Care Teams Rough Planer Tender Relationship Specialty Start Date End Date Josselyn Jones MD PCP - General 09/22/16 documented as of this encounter
--- OUTSIDE RECORDS SUMMARY | 2024-05-27 10:32 | XMS_ITS | Clinical Summary ---
Author Organization [facility] Address [address] [place] [address] Phone Care Team Providers Care Product Control And Logistics Analyst Name Role Phone Josselyn Jones MD Primary Care Provider Unavailabl e Allergies No known active allergies Medications betamethasone dipropionate 0.05 % cream NATALIO TOPICALLY TO RASH BID FOR 2 WEEKS THEN STOP FOR 2 WEEKS 2 7 Active clobetasol 0.05 % topical foam NATALIO EXT TO THE SCALP D 4 7 Active Fluocinolone Acetonide (DERMA-SMOOTHE/F S SCALP) 0.01 % oil [id number] ; apply by TOPICAL route thin film [...] sport. Will restart soccer this year at [employer] Seborrheic psoriasis Immunizations Immunization Administration Dates [...] of Dental caries, Family history of Sudden /[place] under age 55 Sister 1 Sister: ADD/ADH [...] complete this topic Procedures * Due to [place] state law, this organization might not be sharing sensitive test results. Procedure Name Priority Date/Time Associated Diagnosis Comments CHLAMYDIA AND GONORRHEA, AMPLIFIED Routine 12/21/2015 2:40 PM EST from Last 3 Months or Most Recently Relevant to Health Maintenance Results * Due to [place] state law, this organization might not be sharing sensitive test results. * Chlamydia and Gonorrhoea, Amplified (12/21/2015 2:40 PM EST) URINE CHLAMYDIA AMP PROBE NEGATIVE [facility] Comment: No Chlamydia Trachomatis RNA detected in this patient's sample (REFERENCE RANGE/NORMAL VALUE: NOT DETECTED) URINE GC AMP PROBE NEGATIVE [facility] Comment: No Neisseria Gonorrhoeae RNA detected in this patient's sample (REFERENCE RANGE/NORMAL VALUE: NOT DETECTED) NOTE: This test uses armature winder repairer-mediated amplification method to detect rRNA from C.Trachomatis [...] without risk of sexual abuse. Consult the [facility] if needed. Contact phone number . Therapeutic failure or success cannot be determined with the Aptima Combo2 assay since nucleic acid may persist following appropriate antimicrobial therapy. The Centers for Disease Control and Prevention (CDC) recommends confirmatory retesting using culture or a different nucleic acid amplification test when positive results occur, if indicated. Testing performed or reported by [facility], a Service of [facility], [address] [place] [address] CLIA ??[id number] Cristi Callaway MD, PhD, Status Controller 12/21/2015 2:40 PM EST Narrative [facility] - 12/21/2015 2:40 PM EST URINE CHLAMYDIA GC AMP PROBE us Thu Dawson CARDIAC CATH TECHNICIAN LAB MICROBIOLOGY - GENERAL ORD ERABLES Final Result [facility] [address] [place] [address], [place] from Last 3 Months or Most Recently Relevant to Health Maintenance Care Teams Product Control And Logistics Analyst Relationship Specialty Start Date End Date Josselyn Jones MD PCP - General 09/22/16
--- OUTSIDE RECORDS SUMMARY | 2024-05-27 10:32 | XMS_ITS | Encounter Summary ---
Author Organization [facility] Address [address] [place] [address] Phone Care Team Providers Care Furniture Builder Name Role Phone Josselyn Jones MD Primary Care Provider Unavailabl e Encounter Details Date Type Department Care Team (Late st Contact Info) Description 08/20/2009 Documentation [facility] [place] [address] [place] [address] Family Medicine, Physician [address] [place], [place] [phone] Social History Tobacco Use Types Packs/Day Years [...] on filedocumented in this encounter Care Teams Furniture Builder Relationship Specialty Start Date End Date Josselyn Jones MD PCP - General 09/22/16 documented as of this encounter
== END 2024-05-27 09:57 | disposition home or self-care (01) ==
LOC: HO.HWSM 09:25
PROVIDERS: PCP Physician Assistant; Visit Provider Advanced Practice Midwife
DX: Z20.2 Contact with and (suspected) exposure to infections with a predominantly sexual mode of transmission (principal); A74.9 Chlamydial infection, unspecified; Z30.09 Encounter for other general counseling and advice on contraception
CPT/HCPCS: 99213

== ENCOUNTER 2024-06-26 10:01 | Outpatient (AMB) | payer OTHER, SELFPAY ==
--- NOTE | 2024-06-26 10:05 | AM.OFFVISNUR ---
Intake Visit Reasons: tetanus Allergies No Known Allergies Allergy (Verified 05/27/24 09:29) Immunizations Boostrix Tdap 2.5 Lf unit-8 mcg-5 Lf/0.5 mL intramuscular syringe Performing Provider: Jesus Mendenhall PA-C [facility] [place] [facility] Administered by: Francisca Saunders RN on 06/26/24 10:06 Dose Route Admin Location Dispensed Lot Number Expiration Date [facility] Pier Master Assistant 0.5 mL IM Left Deltoid 0.5 mL [id number] 10/07/26 63720-623-95 [employer] VIS Given Date VIS Provided VIS Publication Date 06/26/24 Single Vaccine 20 Eligibility Eligibility Date Funding Source Not [facility] Eligible 06/26/24 Private Assessment & Plan Assessment & Plan Orders: Orders TDaP Immunization Today Z23 - Encounter for immunization Medications: New Boostrix Tdap (diphth,pertus(acell),tetanus) 0.5 mL IM ONCE 0.5 mL 0RF NS Z23 - Encounter for immunization Coding
--- OUTSIDE RECORDS SUMMARY | 2024-06-26 10:57 | XMS_ITS | Encounter Summary ---
Author Organization [facility] Address [address] [place] [address] Phone Care Team Providers Care Refractory Grinder Operator Name Role Phone Josselyn Jones MD Primary Care Provider Unavailabl e Encounter Details Date Type Department Care Team (Late st Contact Info) Description 09/28/2016 Conversion Encounter [facility] [place] [place] [address] Social History Tobacco Use Types Packs/Day Years [...] on filedocumented in this encounter Care Teams Refractory Grinder Operator Relationship Specialty Start Date End Date Josselyn Jones MD PCP - General 09/22/16 documented as of this encounter
--- OUTSIDE RECORDS SUMMARY | 2024-06-26 10:57 | XMS_ITS | Encounter Summary ---
Author Organization [facility] Address [address] [place] [address] Phone Care Team Providers Care Fire Captain Marine Name Role Phone Josselyn Jones MD Primary Care Provider Unavailabl e Encounter Details Date Type Department Care Team (Late st Contact Info) Description 03/27/2016 Documentation [facility] [place] [address] Family Medicine, [facility] [place], [place] [address] Social History Tobacco Use Types Packs/Day Years [...] on filedocumented in this encounter Care Teams Fire Captain Marine Relationship Specialty Start Date End Date Josselyn Jones MD PCP - General 09/22/16 documented as of this encounter
--- OUTSIDE RECORDS SUMMARY | 2024-06-26 10:57 | XMS_ITS | Encounter Summary ---
Author Organization [facility] Address [address] [place] [address] Phone Care Team Providers Care Auto Body Customizer Name Role Phone Josselyn Jones MD Primary Care Provider Unavailabl e Encounter Details Date Type Department Care Team (Late st Contact Info) Description 06/24/2009 Documentation [facility] [place] Family Medicine [address] [place] [address] Family Medicine, Physician [address] [place], [place] [phone] Social History Tobacco Use Types Packs/Day Years [...] on filedocumented in this encounter Care Teams Auto Body Customizer Relationship Specialty Start Date End Date Josselyn Jones MD PCP - General 09/22/16 documented as of this encounter
--- OUTSIDE RECORDS SUMMARY | 2024-06-26 10:57 | XMS_ITS | Encounter Summary ---
Author Organization [facility] Address [address] [place] [address] Phone Care Team Providers Care Air Plant Engineer Name Role Phone Josselyn Jones MD Primary Care Provider Unavailabl e Encounter Details Date Type Department Care Team (Late st Contact Info) Description 08/10/2011 Documentation [facility] [place] [address] [place] [address] Family Medicine, Physician [address] [place], [place] [phone] Social History Tobacco Use Types Packs/Day Years [...] on filedocumented in this encounter Care Teams Air Plant Engineer Relationship Specialty Start Date End Date Josselyn Jones MD PCP - General 09/22/16 documented as of this encounter
--- OUTSIDE RECORDS SUMMARY | 2024-06-26 10:57 | XMS_ITS | Clinical Summary ---
Author Organization [facility] Address [address] [place] [address] Phone Care Team Providers Care Licensing Coordinator Name Role Phone Josselyn Jones MD Primary Care Provider Unavailabl e Allergies No known active allergies Medications betamethasone dipropionate 0.05 % cream NATALIO TOPICALLY TO RASH BID FOR 2 WEEKS THEN STOP FOR 2 WEEKS 2 7 Active clobetasol 0.05 % topical foam NATALIO EXT TO THE SCALP D 4 7 Active Fluocinolone Acetonide (DERMA-SMOOTHE/F S SCALP) 0.01 % oil [id number] ; apply by TOPICAL route thin film [...] sport. Will restart soccer this year at [employer] Seborrheic psoriasis Immunizations Immunization Administration Dates [...] of Dental caries, Family history of Sudden /[place] under age 55 Sister 1 Sister: ADD/ADH [...] complete this topic Procedures * Due to [place] state law, this organization might not be sharing sensitive test results. Procedure Name Priority Date/Time Associated Diagnosis Comments CHLAMYDIA AND GONORRHEA, AMPLIFIED Routine 12/21/2015 2:40 PM EST from Last 3 Months or Most Recently Relevant to Health Maintenance Results * Due to [place] state law, this organization might not be sharing sensitive test results. * Chlamydia and Gonorrhoea, Amplified (12/21/2015 2:40 PM EST) URINE CHLAMYDIA AMP PROBE NEGATIVE [facility] Comment: No Chlamydia Trachomatis RNA detected in this patient's sample (REFERENCE RANGE/NORMAL VALUE: NOT DETECTED) URINE GC AMP PROBE NEGATIVE [facility] Comment: No Neisseria Gonorrhoeae RNA detected in this patient's sample (REFERENCE RANGE/NORMAL VALUE: NOT DETECTED) NOTE: This test uses coffee shop attendant-mediated amplification method to detect rRNA from C.Trachomatis [...] without risk of sexual abuse. Consult the [facility] if needed. Contact phone number . Therapeutic failure or success cannot be determined with the Aptima Combo2 assay since nucleic acid may persist following appropriate antimicrobial therapy. The Centers for Disease Control and Prevention (CDC) recommends confirmatory retesting using culture or a different nucleic acid amplification test when positive results occur, if indicated. Testing performed or reported by [facility], a Service of [facility], [address] [place] [address] CLIA ??[id number] Cristi Callaway MD, PhD, Electronic Warfare Specialist 12/21/2015 2:40 PM EST Narrative [facility] - 12/21/2015 2:40 PM EST URINE CHLAMYDIA GC AMP PROBE us Thu Dawson [employer] MICROBIOLOGY - GENERAL ORD ERABLES Final Result [facility] [address] [place] [address], [place] from Last 3 Months or Most Recently Relevant to Health Maintenance Care Teams Licensing Coordinator Relationship Specialty Start Date End Date Josselyn Jones MD PCP - General 09/22/16
--- OUTSIDE RECORDS SUMMARY | 2024-06-26 10:57 | XMS_ITS | Encounter Summary ---
Author Organization [facility] Address [address] [place] [address] Phone Care Team Providers Care Occupational Therapy Director Name Role Phone Josselyn Jones MD Primary Care Provider Unavailabl e Encounter Details Date Type Department Care Team (Late st Contact Info) Description 08/22/2016 Documentation [facility] [place] [facility] [place] [address] Family Medicine, Physician [facility] [place], [place] [address] Social History Tobacco Use Types Packs/Day Years [...] on filedocumented in this encounter Care Teams Occupational Therapy Director Relationship Specialty Start Date End Date Josselyn Jones MD PCP - General 09/22/16 documented as of this encounter
--- OUTSIDE RECORDS SUMMARY | 2024-06-26 10:57 | XMS_ITS | Encounter Summary ---
Author Organization [facility] Address [address] [place] [address] Phone Care Team Providers Care Manager Balance Name Role Phone Josselyn Jones MD Primary Care Provider Unavailabl e Encounter Details Date Type Department Care Team (Late st Contact Info) Description 06/24/2009 Documentation [facility] [place] [address] [place] [address] Family Medicine, Physician [address] [place], [place] [phone] Social History Tobacco Use Types Packs/Day Years [...] on filedocumented in this encounter Care Teams Manager Balance Relationship Specialty Start Date End Date Josselyn Jones MD PCP - General 09/22/16 documented as of this encounter
--- OUTSIDE RECORDS SUMMARY | 2024-06-26 10:57 | XMS_ITS | Encounter Summary ---
Author Organization [facility] Address [address] [place] [address] Phone Care Team Providers Care Dedicated Owner Operator Name Role Phone Josselyn Jones MD Primary Care Provider Unavailabl e Encounter Details Date Type Department Care Team (Late st Contact Info) Description 08/20/2009 Documentation [facility] [place] Family Medicine [address] [place] [address] Family Medicine, Physician [address] [place], [place] [phone] Social History Tobacco Use Types Packs/Day Years [...] on filedocumented in this encounter Care Teams Dedicated Owner Operator Relationship Specialty Start Date End Date Josselyn Jones MD PCP - General 09/22/16 documented as of this encounter
--- OUTSIDE RECORDS SUMMARY | 2024-06-26 10:57 | XMS_ITS | Encounter Summary ---
Author Organization [facility] Address [address] [place] [address] Phone Care Team Providers Care Sign Manufacturer Name Role Phone Josselyn Jones MD Primary Care Provider Unavailabl e Encounter Details Date Type Department Care Team (Late st Contact Info) Description 08/20/2009 Documentation [facility] [place] [address] [place] [address] Family Medicine, Physician [address], [place] [phone] Social History Tobacco Use Types Packs/Day Years [...] on filedocumented in this encounter Care Teams Sign Manufacturer Relationship Specialty Start Date End Date Josselyn Jones MD PCP - General 09/22/16 documented as of this encounter
--- OUTSIDE RECORDS SUMMARY | 2024-06-26 10:57 | XMS_ITS | Encounter Summary ---
Author Organization [facility] Address [address] [place] [address] Phone Care Team Providers Care Reinforcing Iron And Rebar Workers Name Role Phone Josselyn Jones MD Primary Care Provider Unavailabl e Encounter Details Date Type Department Care Team (Late st Contact Info) Description 04/13/2009 Documentation [facility] [place] Family Medicine [address] [place] [address] Family Medicine, Physician [address] [place], [place] [phone] Social History Tobacco Use Types Packs/Day Years [...] on filedocumented in this encounter Care Teams Reinforcing Iron And Rebar Workers Relationship Specialty Start Date End Date Josselyn Jones MD PCP - General 09/22/16 documented as of this encounter
== END 2024-06-26 10:14 | disposition home or self-care (01) ==
LOC: HO.HMCH 10:01
PROVIDERS: PCP Physician Assistant; Visit Provider Physician Assistant
DX: Z23 Encounter for immunization (principal)

== ENCOUNTER → 2024-06-26 10:01 | Outpatient (BNVA) | payer OTHER, SELFPAY | PROVIDERS: PCP Physician Assistant; Visit Provider Physician Assistant | DX: Z23 Encounter for immunization (principal) | CPT/HCPCS: 90471; 90715 ==

== ENCOUNTER 2024-07-01 09:01 | Outpatient (REF) | payer OTHER, SELFPAY ==
--- NOTE | 2024-07-01 09:08 | EMG_ITS ---
Right median and ulnar motor and sensory studies were performed. Right radial and median and lateral antecubital brachial sensory studies were performed and paraspinal muscles were tested with a needle. IMPRESSION: This is an unremarkable study with no evidence of entrapment, neuropathy, or a proximal lesion. MD BRODERICK Castillo/OTTONIEL / [id number]
--- OUTSIDE RECORDS SUMMARY | 2024-07-01 09:36 | XMS_ITS | Encounter Summary ---
Author Organization [facility] Address [address] [place] [address] Phone Care Team Providers Care Mass Spectroscopist Name Role Phone Josselyn Jones MD Primary Care Provider Unavailabl e Encounter Details Date Type Department Care Team (Late st Contact Info) Description 08/22/2016 Documentation [facility] [place] [facility] [place] [address] Family Medicine, Physician [facility] [place], [place] [phone] Social History Tobacco Use Types Packs/Day Years [...] on filedocumented in this encounter Care Teams Mass Spectroscopist Relationship Specialty Start Date End Date Josselyn Jones MD PCP - General 09/22/16 documented as of this encounter
--- OUTSIDE RECORDS SUMMARY | 2024-07-01 09:36 | XMS_ITS | Encounter Summary ---
Author Organization [facility] Address [address] [place] [address] Phone Care Team Providers Care Ob Gyn Name Role Phone Josselyn Jones MD Primary Care Provider Unavailabl e Encounter Details Date Type Department Care Team (Late st Contact Info) Description 08/20/2009 Documentation [facility] [place] [address] [place] [address] Family Medicine, Physician [address] [place], [place] [phone] Social History Tobacco Use Types Packs/Day Years [...] on filedocumented in this encounter Care Teams Ob Gyn Relationship Specialty Start Date End Date Josselyn Jones MD PCP - General 09/22/16 documented as of this encounter
--- OUTSIDE RECORDS SUMMARY | 2024-07-01 09:36 | XMS_ITS | Clinical Summary ---
Author Organization [facility] Address [address] [place] [address] Phone Care Team Providers Care Top Tile Decorator Name Role Phone Josselyn Jones MD Primary Care Provider Unavailabl e Allergies No known active allergies Medications betamethasone dipropionate 0.05 % cream NATALIO TOPICALLY TO RASH BID FOR 2 WEEKS THEN STOP FOR 2 WEEKS 2 7 Active clobetasol 0.05 % topical foam NATALIO EXT TO THE SCALP D 4 7 Active Fluocinolone Acetonide (DERMA-SMOOTHE/F S SCALP) 0.01 % oil [id number] ; apply by TOPICAL route thin film [...] of Dental caries, Family history of Sudden /[place] under age 55 Sister 1 Sister: ADD/ADH [...] complete this topic Procedures * Due to [place] state law, this organization might not be sharing sensitive test results. Procedure Name Priority Date/Time Associated Diagnosis Comments CHLAMYDIA AND GONORRHEA, AMPLIFIED Routine 12/21/2015 2:40 PM EST from Last 3 Months or Most Recently Relevant to Health Maintenance Results * Due to [place] state law, this organization might not be sharing sensitive test results. * Chlamydia and Gonorrhoea, Amplified (12/21/2015 2:40 PM EST) URINE CHLAMYDIA AMP PROBE NEGATIVE [facility] Comment: No Chlamydia Trachomatis RNA detected in this patient's sample (REFERENCE RANGE/NORMAL VALUE: NOT DETECTED) URINE GC AMP PROBE NEGATIVE [facility] Comment: No Neisseria Gonorrhoeae RNA detected in this patient's sample (REFERENCE RANGE/NORMAL VALUE: NOT DETECTED) NOTE: This test uses car chaser-mediated amplification method to detect rRNA from C.Trachomatis [...] without risk of sexual abuse. Consult the [facility] if needed. Contact phone number . Therapeutic failure or success cannot be determined with the Aptima Combo2 assay since nucleic acid may persist following appropriate antimicrobial therapy. The Centers for Disease Control and Prevention (CDC) recommends confirmatory retesting using culture or a different nucleic acid amplification test when positive results occur, if indicated. Testing performed or reported by [facility], a Service of [facility], [address] [place] [address] CLIA ??[id number] Cristi Callaway MD, PhD, Pathology Laboratory Aides Teacher 12/21/2015 2:40 PM EST Narrative [facility] - 12/21/2015 2:40 PM EST URINE CHLAMYDIA GC AMP PROBE us Thu Dawson BUSINESS SERVICES SALES REPRESENTATIVE LAB MICROBIOLOGY - GENERAL ORD ERABLES Final Result [facility] [address] [place] [address], [place] from Last 3 Months or Most Recently Relevant to Health Maintenance Care Teams Top Tile Decorator Relationship Specialty Start Date End Date Josselyn Jones MD PCP - General 09/22/16
--- OUTSIDE RECORDS SUMMARY | 2024-07-01 09:36 | XMS_ITS | Encounter Summary ---
Author Organization [facility] Address [address] [place] [address] Phone Care Team Providers Care Supervisor Dog License Officer Name Role Phone Josselyn Jones MD Primary Care Provider Unavailabl e Encounter Details Date Type Department Care Team (Late st Contact Info) Description 06/24/2009 Documentation [facility] [place] Family Medicine [address] [place] [address] Family Medicine, Physician [address] [place], [place] [phone] Social History Tobacco Use Types Packs/Day Years [...] filedocumented in this encounter Care Teams Supervisor Dog License Officer Relationship Specialty Start Date End Date Josselyn Jones MD PCP - General 09/22/16 documented as of this encounter
--- OUTSIDE RECORDS SUMMARY | 2024-07-01 09:36 | XMS_ITS | Encounter Summary ---
Author Organization [facility] Address [address] [place] [address] Phone Care Team Providers Care Gun Stock Maker Name Role Phone Josselyn Jones MD Primary Care Provider Unavailabl e Encounter Details Date Type Department Care Team (Late st Contact Info) Description 08/20/2009 Documentation [facility] [place] Family Medicine [address] [place] [address] Family Medicine, Physician [address] [place], [place] [phone] Social History Tobacco Use Types Packs/Day Years [...] on filedocumented in this encounter Care Teams Gun Stock Maker Relationship Specialty Start Date End Date Josselyn Jones MD PCP - General 09/22/16 documented as of this encounter
--- OUTSIDE RECORDS SUMMARY | 2024-07-01 09:36 | XMS_ITS | Encounter Summary ---
Author Organization [facility] Address [address] [place] [address] Phone Care Team Providers Care Reliability Technician Name Role Phone Josselyn Jones MD Primary Care Provider Unavailabl e Encounter Details Date Type Department Care Team (Late st Contact Info) Description 09/28/2016 Conversion Encounter [facility] [place] [place] [address] Social History Tobacco Use Types Packs/Day Years [...] on filedocumented in this encounter Care Teams Reliability Technician Relationship Specialty Start Date End Date Josselyn Jones MD PCP - General 09/22/16 documented as of this encounter
--- OUTSIDE RECORDS SUMMARY | 2024-07-01 09:36 | XMS_ITS | Encounter Summary ---
Author Organization [facility] Address [address] [place] [id number] Phone Care Team Providers Care Clinical Courier Name Role Phone Josselyn Jones MD Primary Care Provider Unavailabl e Encounter Details Date Type Department Care Team (Late st Contact Info) Description 06/24/2009 Documentation [facility] [place] Family Medicine [address] [place] [address] Family Medicine, Physician [address] [place] [phone] Social History Tobacco Use Types Packs/Day Years [...] on filedocumented in this encounter Care Teams Clinical Courier Relationship Specialty Start Date End Date Josselyn Jones MD PCP - General 09/22/16 documented as of this encounter
--- OUTSIDE RECORDS SUMMARY | 2024-07-01 09:36 | XMS_ITS | Encounter Summary ---
Author Organization [facility] Address [address] [place] [address] Phone Care Team Providers Care Product Assembler Name Role Phone Josselyn Jones MD Primary Care Provider Unavailabl e Encounter Details Date Type Department Care Team (Late st Contact Info) Description 08/10/2011 Documentation [facility] [place] [address] [place] [address] Family Medicine, Physician [address] [place] [phone] Social History Tobacco Use Types Packs/Day Years [...] on filedocumented in this encounter Care Teams Product Assembler Relationship Specialty Start Date End Date Josselyn Jones MD PCP - General 09/22/16 documented as of this encounter
--- OUTSIDE RECORDS SUMMARY | 2024-07-01 09:36 | XMS_ITS | Encounter Summary ---
Author Organization [facility] Address [address] [place] [address] Phone Care Team Providers Care Direct Marketing Specialist Name Role Phone Josselyn Jones MD Primary Care Provider Unavailabl e Encounter Details Date Type Department Care Team (Late st Contact Info) Description 03/27/2016 Documentation [facility] [place] [facility] [place] [address] Family Medicine, Physician [facility] [place], [place] [phone] Social History Tobacco Use Types Packs/Day Years [...] on filedocumented in this encounter Care Teams Direct Marketing Specialist Relationship Specialty Start Date End Date Josselyn Jones MD PCP - General 09/22/16 documented as of this encounter
--- OUTSIDE RECORDS SUMMARY | 2024-07-01 09:36 | XMS_ITS | Encounter Summary ---
Author Organization [facility] Address [address] [place] [address] Phone Care Team Providers Care Photographers' Model Name Role Phone Josselyn Jones MD Primary Care Provider Unavailabl e Encounter Details Date Type Department Care Team (Late st Contact Info) Description 04/13/2009 Documentation [facility] [place] [address] [place] [address] Family Medicine, Physician [address] [place] [phone] Social History Tobacco Use Types Packs/Day Years [...] on filedocumented in this encounter Care Teams Photographers' Model Relationship Specialty Start Date End Date Josselyn Jones MD PCP - General 09/22/16 documented as of this encounter
== END 2024-07-01 09:02 | disposition home or self-care (01) ==
LOC: HO.NEURO 09:01
PROVIDERS: PCP Physician Assistant; Visit Provider Physician Assistant
DX: M79.631 Pain in right forearm (principal)
CPT/HCPCS: 95886; 95910

== ENCOUNTER 2024-07-25 08:01 | Outpatient (AMB) | payer OTHER, SELFPAY ==
[2024-07-25 08:02] VITALS: BP 122/70; PULSE 73; O2SAT 98; BMI 34.2
--- NOTE | 2024-07-25 08:02 | A.OFFVIS_ITS ---
Vital Signs 07/25/24 08:02 Height 5 ft 1 in Weight 181 lb BMI 34.2 BP 122/70 Blood Pressure Location Rt brachial Position Sitting Pulse 73 Pulse Source Pulse Oximeter Pulse Oximetry (%) 98 Oxygen Delivery Method Room Air Intake Visit Reasons: f/u appt [employer] Required: No Accompanied by: Self / Same As Patient Allergies No Known Allergies Allergy (Verified 07/25/24 08:09) Medication List - Last Reconciled 07/25/24 by VENU Barksdale acetaminophen 1,000 mg (2 x 500 mg) PO Q6H PRN clobetasol 0.05% topical fluocinolone and shower cap 0.01 % topical guselkumab (Tremfya) mg subcut hydrocortisone 2.5% appl topical triamcinolone acetonide 0.1% 1 appl topical BID-TID HPI Comments Details: 24-yr-old female presents for f/u visit of migraine. Pt was last seen by myself in Oct 2022. She recently underwent a RUE EMG/NCS d/t having intermittent right forearm sharp pains-, which was normal. She notes her mother has carpal tunnel syndrome. 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 Has not tried a wrist splint before. She is having increased migraine frequency, now 2-3 migraine days per week- but varies depending in her week. Can be triggered by poor sleep. She is still not sleeping well. So prone to snoring, daytime sleepiness. Can work 7:30am-11:30pm when she works both of her jobs in 1 day. She never had the previously ordered HST. Using Sumatriptan prn- still helps, but does cause increased headache x's 10 minutes and then chills sensation x's 30-40 minutes. She sometimes takes Sumatripatn w/ Ibuprofen. The headache usually subsides w/in 30-60 minutes. She does use a massaging I mask, which can be helpful at times.. She states her PCP wanted her to have a brain MRI d/t her migraines and her mother has had a brain tumor- but this was denied. Patient also notes that her mother has chronic migraine and ?frequent strokes? which presents as unilateral facial and upper/lower extremity weakness during her migraine attacks- patient states she has not heard the term hemiplegic migraine before. Trying to eat and drink well. She is trying to exercise regularly- does HIT type training- when she can wake up in the am. [facility] Medical History Acute respiratory disease Cervical cancer screening Surgical History Hx of tonsillectomy Family History Father No problems noted. Mother Benign tumor Arthritis Migraines Carpal tunnel syndrome Family/Other Substance use disorder Social History Housing: House Alcohol intake: current Alcohol intake frequency: holidays/special occasions only Patient Tobacco Use Status: Never used Tobacco e-Cigarette/Vaping Use: Never Used Second Hand Smoke Exposure: No service: No Current occupational status: employed Current occupation: [employer] Sexual orientation: Straight/Heterosexual Gender identity: Female Cognitive needs: No Hearing needs: No Vision needs: Yes (Need eye referral has not seen an eye doctor for about 3 years) Female Reproductive History Menstrual Age of Menarche: 10 Physical Exam Vital Signs: Last Vital Signs Pulse 73 07/25/24 08:02 BP 122/70 07/25/24 08:02 Pulse Ox 98 07/25/24 08:02 Oxygen Delivery Method Room Air 07/25/24 08:02 BMI result Body Mass Index 34.2 Const General: cooperative and no acute distress Orientation/consciousness: patient oriented x3 HEENT Head: Yes normocephalic Resp Effort & Inspection: normal respiratory effort and able to speak in complete sentences Neuro Other: Negative RUE tinnel, phallen, medial compression tests. General: patient oriented x3, gait normal and CN's II-XI intact bilaterally Cognition (Neuro): normal cognition Motor exam (neuro): 5/5 motor strength present throughout Psych Appearance: grossly normal Mental Status: mental status grossly normal Speech and movement: Normal speech and movement present Affect: normal affect Attitude: cooperative Thought process: Normal thought process present Thought content: Normal thought content present Insight: Good insight present (Psych) Judgement: Good judgement present (Psych) Assessment & Plan Assessment & Plan (1) Migraine without aura: Code(s): G43.009 - Migraine without aura, not intractable, without status migrainosus Category: Medical Qualifiers: Status migrainosus presence: without status migrainosus Intractability: not intractable Qualified Code(s): G43.009 - Migraine without aura, not intractable, without status migrainosus (2) Sleep difficulties: Code(s): G47.9 - Sleep disorder, unspecified Category: Medical (3) Snoring: Code(s): R06.83 - Snoring Category: Medical (4) Excessive daytime sleepiness: Comment: Hitchcock sleepiness scale 10 Code(s): G47.19 - Other hypersomnia Category: Medical (5) Worsening headaches: Code(s): R51.9 - Headache, unspecified Category: Medical Plan Pt again advised to undergo HST to assess for sleep apnea. Patient is advised to undergo brain MRI with and without contrast due to worsened migraine, in setting of psoriasis, and family history of brain tumor and likely hemiplegic migraine. For right forearm stabbing pain episodes: Reviewed simple upper extremity range of motion and massaging techniques which may help. Trial an OTC right carpal tunnel wrist splint while sleeping. ? For overall headache management: Continue to optimize good self-care, including but not limited to maintaining a healthy diet, adequate fluid intake, adequate sleep, and engaging in regular physical activity. Track headaches. ? For acute headache treatment: Hold Sumatriptan 100mg tab- as although this works well1/, is well tolerated. Trial eletriptan in hopes that this is as effective but better tolerated. * Eletriptan 40 mg tab, 1/2 - 1 tab (20-49967 mg) at onset of headache, may repeat in 2 hours. Max of 2 tabs (43144 mg) per 24 hours. May adjunct with OTC Tylenol 650mg q 4 hours, Ibuprofen 600mg q 6 hours, or Naproxen 440mg q 12 hrs prn. Previous acute migraine medication trials: Ibuprofen. Sumatriptan-effective but not well tolerated. Acute migraine medication contraindications: None at this time ? For headache prevention medication: Start riboflavin 400 mg daily in the morning. Start magnesium oxide 400 mg daily at bedtime Previous migraine prevention medication trials: Amitriptyline 25mg qhs- ineffective. Migraine prevention medication contraindications: None at this time. However, patient is not interested in starting a CGRP MaB injection or propranolol at this time. Future considerations- propranolol. ? Pt to follow-up in 6 months or sooner prn. Orders: Orders MR head/brain wo/w con Today L40.9 - Psoriasis, unspecified, R51.9 - Headache, unspecified, Z84.89 - Family history of other specified conditions RT home sleep study Today G47.19 - Other hypersomnia, G47.9 - Sleep disorder, unspecified, R06.83 - Snoring Medications: New eletriptan take 1 tab at onset of headache; if no relief, may repeat 1 tab after at least 2 hrs; max = 2 tabs/24 hrs PO 30 days 12 tabs 3RF magnesium oxide may hold for loose stools 400 mg PO BEDTIME 30 days 30 tabs 6RF riboflavin (vitamin B2) 400 mg PO DAILY 30 days 30 tabs 6RF Coding Level of Care Code Est Pt Level 4 (13484) Diagnoses Migraine without aura and without status migrainosus, not intractable G43.009 Status migrainosus presence: without status migrainosus Intractability: not intractable Sleep difficulties G47.9 Snoring R06.83 Excessive daytime sleepiness G47.19 Worsening headaches R51.9
--- OUTSIDE RECORDS SUMMARY | 2024-07-25 08:03 | XMS_ITS | Encounter Summary ---
Author Organization [facility] Address [address] [place] [address] Phone Care Team Providers Care Assistant Cross Country Coach Name Role Phone Josselyn Jones MD Primary Care Provider Unavailabl e Encounter Details Date Type Department Care Team (Late st Contact Info) Description 06/24/2009 Documentation [facility] [place] Family Medicine [address] [place] [address] Family Medicine, Physician [address] [place] [phone] Social History Tobacco Use Types Packs/Day Years [...] on filedocumented in this encounter Care Teams Assistant Cross Country Coach Relationship Specialty Start Date End Date Josselyn Jones MD PCP - General 09/22/16 documented as of this encounter
== END 2024-07-25 09:11 | disposition home or self-care (01) ==
LOC: HO.HSMS 08:02
PROVIDERS: PCP Physician Assistant; Visit Provider Nurse Practitioner Family
DX: G43.009 Migraine without aura, not intractable, without status migrainosus (principal); G47.9 Sleep disorder, unspecified; R06.83 Snoring; G47.19 Other hypersomnia; R51.9 Headache, unspecified
CPT/HCPCS: 99214

== ENCOUNTER → 2024-07-25 08:01 | Outpatient (BNVA) | payer OTHER, SELFPAY | PROVIDERS: PCP Physician Assistant; Visit Provider Nurse Practitioner Family | DX: G43.009 Migraine without aura, not intractable, without status migrainosus (principal); G47.9 Sleep disorder, unspecified; R06.83 Snoring; G47.19 Other hypersomnia | CPT/HCPCS: 99212 ==

== ENCOUNTER 2024-08-24 15:41 | Outpatient (REF) | payer OTHER, SELFPAY ==
--- NOTE | ~2024-08-24 | MR_ITS ---
EXAMINATION: MR BRAIN WITHOUT THEN WITH IV CONTRAST HISTORY: R51.9 - Headache, unspecified TECHNIQUE: Sagittal T1, and axial T1, FLAIR, T2, gradient echo, and diffusion weighted MR images of the brain were obtained. Subsequently, axial, and coronal T1-weighted images were obtained after the administration of intravenous gadolinium. 8 mL Gadavist was administered. COMPARISON: There are no prior studies available for comparison. FINDINGS: The brain parenchyma is unremarkable, demonstrating normal mac/white differentiation. No foci of abnormal signal intensity are identified. The ventricular system is normal in size and configuration. The pituitary is normal in size. The cerebellar tonsils are normally located. There is no mass effect or midline shift. No intra or extra-axial fluid collections are identified. There are no foci of restricted diffusion. There is no abnormal contrast enhancement. Normal vascular flow voids are noted in the basilar and carotid arteries. The visualized paranasal sinuses are clear. MR/MR head/brain wo/w con IMPRESSION: Unremarkable MRI of the brain without and with contrast. Electronically signed by: Pierre Gasca MD 08/25/2024 08:49 AM EDT
--- OUTSIDE RECORDS SUMMARY | 2024-08-24 15:44 | XMS_ITS | Encounter Summary ---
Author Organization [facility] Address [address] [place] [address] Phone Care Team Providers Care Nuclear Powerplant Supervisor Name Role Phone Josselyn Jones MD Primary Care Provider Unavailabl e Encounter Details Date Type Department Care Team (Late st Contact Info) Description 06/24/2009 Documentation [facility] [place] Family Medicine [address] [place] [address] Family Medicine, Physician [address] [place] [phone] Social History Tobacco Use Types Packs/Day Years [...] on filedocumented in this encounter Care Teams Nuclear Powerplant Supervisor Relationship Specialty Start Date End Date Josselyn Jones MD PCP - General 09/22/16 documented as of this encounter
== END 2024-08-24 15:42 | disposition home or self-care (01) ==
LOC: HO.MRI 15:41
PROVIDERS: PCP Physician Assistant; Visit Provider Nurse Practitioner Family
DX: R51.9 Headache, unspecified (principal); L40.9 Psoriasis, unspecified; Z84.89 Family history of other specified conditions
CPT/HCPCS: 70553; A9585

== ENCOUNTER → 2024-08-24 15:52 | Outpatient (BNV) | payer OTHER, SELFPAY | PROVIDERS: PCP Physician Assistant; Visit Provider Radiology Diagnostic Radiology | DX: G44.52 New daily persistent headache (NDPH) (principal) | CPT/HCPCS: 70553 ==